=== PATIENT | female | born 1970 ===

== ENCOUNTER 2020-02-12 01:11 | Inpatient (IN) | payer MEDICARE, MEDICAID, SELFPAY ==
[2020-02-12] VITALS (7 sets, daily range): BP systolic 104–136; BP diastolic 58–103; PULSE 76–116; RESP 16–24; TEMP 36.4–37.3; O2SAT 94–99; BMI 35.1
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
--- NOTE | 2020-02-12 01:16 | XR_ITS ---
WS: [id number] XR chest 1V portable [id number] REASON FOR EXAM: cough FINDINGS: Small amount of left pleural effusion obliterating the costophrenic angle. The heart is not grossly enlarged. Coronary bypass changes are seen. The lung byrnes are well aerated. No pneumonia, pleural effusion other than described. There is no pu lmonary edema seen. The hilum and apices normal. A scoliotic curve convex to the right. XR/XR chest 1V portable [id number] IMPRESSION: Small amount of left pleural effusion Coronary bypass changes.
--- NOTE | 2020-02-12 01:16 | ECG_ITS ---
Measurements Intervals [place] Rate: 110 P: 55 [place]: 132 QRS: 17 QRSD: 84 T: 62 QT: 359 QTc: 487 SINUS TACHYCARDIA POSSIBLE LEFT ATRIAL ENLARGEMENT [-0.1mV P WAVE IN V1/V2] LOW QRS VOLTAGE IN PRECORDIAL LEADS [QRS DEFLECTION < 1.0 mV IN CHEST LEADS] NONSPECIFIC ST & T-WAVE ABNORMALITY ABNORMAL RHYTHM ECG Compared to ECG 06/30/2019 23:58:03 Low QRS voltage now present T-wave abnormality still present Electronically Signed On 02-12-2020 8:45:59 CDT by Brigette Condon [email or web address]
[2020-02-12] MEDS: ipratropium-albuterol 3 mL Neb INHALATION (01:28)
[2020-02-12 01:37] LABS: ABG PCO2 30.9 mmHg (35-45); ABG PH Result 7.51 (7.35-7.45); Base Excess ABG 2.4 mmol/L (-2.0-2.0); Blood Gas Allen Test Pos; Blood Gas Sample Site Radial, right; Blood Gas Sample Type Arterial; HCO3 ABG 24.8 mmol/L (22-26); Oxygen Device ROOM AIR; PO2 ABG 74.2 mmHg (80.0-100.0)
[2020-02-12 02:02] LABS: HCG, Serum Qual Negative (Negative)
[2020-02-12 02:09] LABS: Lactic Sepsis W/Reflex 2.9 mmol/L (0.5-2.2)
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
[2020-02-12 02:21] LABS: Alanine Aminotransferase 33 U/L (0-33); Albumin Level 4.2 g/dL (3.5-5.2); Alkaline Phosphatase 93 IU/L (35-105); Anion Gap 22.6 (5-19); Aspartate Amino Transferase 20 U/L (0-32); Blood Urea Nitrogen 13 mg/dL (6-20); Calcium 10.8 mg/dL (8.5-10.5); Carbon Dioxide 23 mmol/L (22-29); Chloride 99 mmol/L (98-107); Globulin 2.9 g/dL (1.3-4.6); Glomerular Filtration Rate 76.2 mL/min (90-130); Glucose 207 mg/dL (65-115); Magnesium 1.8 mg/dL (1.7-2.3); NT Pro B Type Natriuretic Pept 119 pg/mL (0-125); Osmolality Calculated 294 mOsm/kg (285-295); Potassium 3.6 mmol/L (3.5-5.1); Sodium 141 mmol/L (136-145); Total Bilirubin 0.3 mg/dL (0.15-1.2); Total Protein 7.1 g/dL (6.6-8.7)
[2020-02-12 02:23] LABS: Basophils # 0.1 10^3/uL (0.0-0.1); Basophils % 0.9 %; Eosinophils # 0.1 10^3/uL (0.0-0.8); Eosinophils % 1.3 %; Hematocrit 38.2 % (37.0-47.0); Hemoglobin 12.2 g/dL (11.5-15.3); Lymphocytes # 4.4 10^3/uL (0.8-4.8); Lymphocytes % 42.1 %; Mean Corpuscular HGB Conc 31.9 g/dL (30.0-36.0); Mean Corpuscular Hemoglobin 27.8 pg (28.0-34.0); Mean Platelet Volume 9.3 fL (7.4-10.4); Monocytes # 0.9 10^3/uL (0.2-0.9); Neutrophils # 4.8 10^3/uL (1.8-7.7); Neutrophils % 46.5 %; Nucleated Red Blood Cells % 0 %; Platelet Count 228 10^3/cmm (130-400); Red Blood Count 4.39 10^6/uL (4.1-5.3); Red Cell Distribution Width 14.6 % (12.1-15.1); White Blood Count 10.4 10^3/uL (4.0-10.0)
[2020-02-12 02:23] LABS: Alcohol Level < 10 mg/dL (0-10)
[2020-02-12 02:44] LABS: Troponin(5th) Baseline 7 ng/mL (0-10)
[2020-02-12] MEDS: haloperidol inj 5 mg/mL INJ 1 mL IM (02:49)
[2020-02-12 03:14] LABS: Influenza A by IFA Negative (Negative); Influenza B by IFA Negative (Negative)
[2020-02-12 03:28] LABS: Lithium 0.1 mmol/L (0.6-1.2)
[2020-02-12 03:34] LABS: Reflex Lactate Order REFLEX LACTIC ORDERD
[2020-02-12 03:37] LABS: Phenytoin Dilantin 1.2 ug/mL (10-20); Thyroid Stimulating Hormone 2.38 uIU/mL (0.27-4.20); Valproic Acid Level 2.8 mcg/mL (50-100)
[2020-02-12 03:46] LABS: Acetaminophen < 5.0 ug/mL (10-30); Salicylate < 0.3 mg/dL (3-10)
[2020-02-12 04:38] LABS: Lactic Acid level (Lactate) 1.1 mmol/L (0.5-2.2)
[2020-02-12 04:40] LABS: Troponin 5 2HR 7.39 ng/mL (0-10); Troponin 5 2HR Delta 0.39 ABS# (0-10)
[2020-02-12 05:28] LABS: Bilirubin Urine Neg (NEGATIVE); Blood Urine Neg (Negative); Glucose Urine UA Norm (Normal); Ketones Urine Negative (Negative); Leukocyte Esterase Urine Negative (Negative); Nitrate Urine Negative (Negative); Protein Urine Neg (Negative); Specific Gravity, Urine 1.025 (1.005-1.030); Urine Appearance Hazy (CLEAR); Urine Color Yellow (Yellow); Urobilinogen Urine Norm (Negative); pH Urine 5 (5-7)
[2020-02-12 05:33] LABS: Amphetamines Screen Urine Positive (Negative); Barbiturates Screen Urine Negative (Negative); Benzodiazepines Screen Urine Positive (Negative); Cocaine Screen Urine Negative (Negative); Opiate Screen Urine Negative (Negative); PCP Screen Urine Negative (Negative); THC Screen Urine Negative (Negative)
[2020-02-12 05:59] LABS: Add Urine Culture? No; Bacteria Urine TRACE; Mucus Urine 3+; RBC Urine 0-4 /hpf (0-2); Squamous Epithelial Cell Urine 0-4 (0-5)
--- NOTE | 2020-02-12 06:04 | ECG_ITS ---
Measurements Intervals [place] Rate: 85 P: 59 [place]: 139 QRS: 4 QRSD: 81 T: 121 QT: 404 QTc: 482 SINUS RHYTHM POSSIBLE LEFT ATRIAL ENLARGEMENT [-0.1mV P WAVE IN V1/V2] NONSPECIFIC T-WAVE ABNORMALITY Compared to ECG 06/30/2019 23:58:03 Sinus tachycardia no longer present T-wave abnormality still present Electronically Signed On 02-12-2020 8:49:37 CDT by Brigette Condon [email or web address]
[2020-02-12] MEDS: acetaminophen 325 mg Tablet 650 MG PO (11:01)
[2020-02-12] MEDS: TRAMadol 50 mg Tablet PO ×2 (13:34→17:18)
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
[2020-02-12] MEDS: quetiapine 100 mg Tablet PO (21:24)
[2020-02-13 06:00] VITALS: BP 97/62; PULSE 76; RESP 16; TEMP 37; O2SAT 99
[2020-02-13] MEDS: TRAMadol 50 mg Tablet PO (08:30)
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
[2020-02-13 09:35] VITALS: BP 97/62; PULSE 76; RESP 16; TEMP 37; O2SAT 99
== END 2020-02-13 13:30 | disposition home or self-care (01) | DRG 897 ==
LOC: ER 04:56 → NP 05:38
PROVIDERS: Admitting Provider Psychiatry & Neurology Psychiatry; Emergency Provider Emergency Medicine; Family Provider Family Medicine; Visit Provider Psychiatry & Neurology Psychiatry
DX: F12.129 Cannabis abuse with intoxication, unspecified (principal); F15.921 Other stimulant use, unspecified with intoxication delirium; F17.200 Nicotine dependence, unspecified, uncomplicated; F10.980 Alcohol use, unspecified with alcohol-induced anxiety disorder
CPT/HCPCS: 12345; 71045; 80053; 80156; 80164; 80178; 80185; 80306; 80307; 81001; 82803; 83605; 83735; 83880; 84443; 84484; 84703; 85025; 85610; 87804; 93005; 93010; 94640; 96372; 99283; J1630

== ENCOUNTER 2020-05-11 19:41 | Emergency (ER) | payer MEDICARE, MEDICAID, SELFPAY ==
[2020-05-11 20:00] VITALS: BP 167/91; PULSE 116; RESP 32; TEMP 36.9; O2SAT 94; BMI 43.6
--- NOTE | 2020-05-11 20:18 | XRR_ITS ---
PROCEDURE INFORMATION: Exam: XR Chest, 1 View Exam date and time: 05/11/2020 8:44 PM Age: 49 years old Clinical indication: Shortness of breath; Chest pain; Type not specified; Additional info: SOB TECHNIQUE: Imaging protocol: XR of the chest Views: 1 view. COMPARISON: No relevant prior studies available. FINDINGS: Lungs: Mild interstitial opacities throughout both lungs, likely pulmonary vascular congestion. Atypical/viral pneumonia is conceivable. No airspace consolidation identified. Pleural space: No visible pneumothorax or pleural effusion. Heart/Mediastinum: Cardiomediastinal silhouette contour is within normal limits. Bones/joints: Median sternotomy wires are present. XR/XR chest 1V portable [id number] IMPRESSION: 1. Mild interstitial opacities throughout both lungs, likely pulmonary vascular congestion. Atypical/viral pneumonia is conceivable.
--- NOTE | 2020-05-11 20:26 | ED_ITS ---
HPI - SOB/Dyspnea General: Chief Complaint: Shortness of Breath/Dyspnea Stated Complaint: possible covid Time Seen by Provider: 05/11/20 20:24 Source: patient Mode of arrival: ambulatory Limitations: no limitations History of Present Illness: HPI Narrative: 49-year-old female who states she has had chest pain along with shortness of breath over the last 2 days. She has had a mild cough and denies any fever. She states it is just very painful and is a sharp pain. She denies any worsening or improving factors. She states she has been around her daughter who is been around people with coronavirus but she has had no direct contact with someone that tested positive. MD elicited complaint: chest pain Associated symptoms: Reports chest pain; Deny abdominal pain, fever(s), nausea or vomiting Review of Systems Const: Denies: fever(s), chills, body aches or change in appetite Eyes: Denies: blurry vision or eye discomfort ENMT: Denies: throat pain or dental pain Card: Reports: chest pain Resp: Reports: dyspnea GI: Denies: abdominal pain, nausea, vomiting or diarrhea : Denies: dysuria Musc: Denies: neck pain or back pain Skin/Breast: Denies: rash Neuro: Denies: headache(s) Psych: Denies: depression Dexter/Lymph: Denies: easy bruising All/Imm: Denies: urticaria PFSH ED PFSH: Social History Smoking and tobacco status: current some day smoker Physical Exam Const: COMMON NORMALS: no acute distress, patient oriented x3 and healthy appearing HENMT: COMMON NORMALS: normocephalic and atraumatic HEAD & SCALP: normocephalic and atraumatic Eye: COMMON NORMALS: Equal, round and reactive pupils present and EOMs intact bilaterally PUPIL: Yes Equal, round and reactive pupils present Neck/C-Spine: COMMON NORMALS: full ROM and supple Chest: COMMONS NORMALS: normal inspection of the chest and normal palpation of entire chest wall Resp: COMMON NORMALS: normal respiratory effort, No retractions, No use of accessory muscles and clear to auscultation bilaterally AUSCULTATION: clear to auscultation bilaterally Cardio: COMMON NORMALS: regular rate, regular rhythm and No murmurs present (Cardio) RATE: regular rate RHYTHM: regular rhythm GI: COMMON NORMALS: Normal to inspection, nondistended, normoactive bowel sounds present, Soft to palpation, non-tender and no masses PALPATION: Yes Soft to palpation Extremity: COMMON NORMALS: normal to inspection and full ROM Neuro: COMMON NORMALS: patient oriented x3, moves all extremities and no focal motor deficits Psych: COMMON NORMALS: mental status grossly normal, Normal thought process present and cooperative THOUGHT PROCESS: Normal thought process present Skin: COMMON NORMALS: no rashes or lesions noted and no wounds GENERAL SKIN EXAM: no rashes or lesions noted Course Vital Signs: Vital signs: Vital Signs Temperature 98.4 F 05/11/20 20:00 Pulse Rate 122 H 05/11/20 22:01 Respiratory Rate 17 05/11/20 22:37 Blood Pressure 140/94 05/11/20 20:27 Pulse Oximetry 94 05/11/20 22:37 MDM - SOB/Dyspnea MDM Narrative: Medical decision making narrative: Lanie presents here with chest pain is been going on straight for 2 days. Her pain is atypical in nature and she is well-appearing here. Her pain is much improved after Ativan and she did seem quite anxious as well. She was tachypneic and having some dyspnea. She is very concerned about coronavirus as she has had indirect contact as her daughter is been in contact with positives. Her x-ray did show a possible viral appearance I informed her that she needs to self isolate and quarantine until we get the results of her coronavirus back. She is to return if she has any worsening shortness of breath or pain. She understands and agrees to this plan. Patient's d-dimer is negative and she has no signs of pulmonary embolism. Troponins negative as well. Lab Data: Labs: Lab Results 05/11/20 05/11/20 05/11/20 Range/Units 21:04 21:04 21:04 WBC 6.6 (4.0-10.0) 10^3/ uL RBC 5.06 (4.1-5.3) 10^6/u L Hgb 14.0 (11.5-15.3) g/dL Hct 43.7 (37.0-47.0) % MCV 86.4 (81-99) fL MCH 27.7 L (28.0-34.0) pg MCHC 32.0 (30.0-36.0) g/dL RDW 13.2 (12.1-15.1) % Plt Count 221 (130-400) 10^3/c mm MPV 9.9 (7.4-10.4) fL Neut % (Auto) 84.2 % Lymph % (Auto) 13.3 % [place] % (Auto) 1.7 % Eos % (Auto) 0.2 % Baso % (Auto) 0.3 % Neut # (Auto) 5.6 (1.8-7.7) 10^3/u L Lymph # (Auto) 0.9 (0.8-4.8) 10^3/u L [place] # (Auto) 0.1 L (0.2-0.9) 10^3/u L Eos # (Auto) 0.0 (0.0-0.8) 10^3/u L Baso # (Auto) 0.0 (0.0-0.1) 10^3/u L Nucleated RBC % (a uto) 0 % Nucleated RBCs # 0.0 /100WBC D-Dimer (0-0.59) ug/mIFE U Sodium 130 L (136-145) mmol/L Potassium 5.1 (3.5-5.1) mmol/L Chloride 92 L (98-107) mmol/L Carbon Dioxide 21 L (22-29) mmol/L Anion Gap 22.1 H (5-19) BUN 14 (6-20) mg/dL Creatinine 0.9 (0.5-0.9) mg/dL GFR Calculation 66.5 L (90-130) mL/min Calculated Osmolal ity 304 H (285-295) mOsm/k g Calcium 10.2 (8.5-10.5) mg/dL Total Bilirubin 0.2 (0.15-1.2) mg/dL AST 60 H (0-32) U/L ALT 99 H (0-33) U/L Alkaline Phosphata se 125 H (35-105) IU/L Troponin T Baselin e 6 (0-10) ng/L NT-Pro-B Natriuret Pep 307 H (0-125) pg/mL Total Protein 7.0 (6.6-8.7) g/dL Albumin 4.4 (3.5-5.2) g/dL Globulin 2.6 (1.3-4.6) g/dL Ethyl Alcohol < 10 (0-10) mg/dL 05/11/20 Range/Units 21:04 WBC (4.0-10.0) 10^3/ uL RBC (4.1-5.3) 10^6/u L Hgb (11.5-15.3) g/dL Hct (37.0-47.0) % MCV (81-99) fL MCH (28.0-34.0) pg MCHC (30.0-36.0) g/dL RDW (12.1-15.1) % Plt Count (130-400) 10^3/c mm MPV (7.4-10.4) fL Neut % (Auto) % Lymph % (Auto) % [place] % (Auto) % Eos % (Auto) % Baso % (Auto) % Neut # (Auto) (1.8-7.7) 10^3/u L Lymph # (Auto) (0.8-4.8) 10^3/u L [place] # (Auto) (0.2-0.9) 10^3/u L Eos # (Auto) (0.0-0.8) 10^3/u L Baso # (Auto) (0.0-0.1) 10^3/u L Nucleated RBC % (a uto) % Nucleated RBCs # /100WBC D-Dimer <= 0.27 (0-0.59) ug/mIFE U Sodium (136-145) mmol/L Potassium (3.5-5.1) mmol/L Chloride (98-107) mmol/L Carbon Dioxide (22-29) mmol/L Anion Gap (5-19) BUN (6-20) mg/dL Creatinine (0.5-0.9) mg/dL GFR Calculation (90-130) mL/min Calculated Osmolal ity (285-295) mOsm/k g Calcium (8.5-10.5) mg/dL Total Bilirubin (0.15-1.2) mg/dL AST (0-32) U/L ALT (0-33) U/L Alkaline Phosphata se (35-105) IU/L Troponin T Baselin e (0-10) ng/L NT-Pro-B Natriuret Pep (0-125) pg/mL Total Protein (6.6-8.7) g/dL Albumin (3.5-5.2) g/dL Globulin (1.3-4.6) g/dL Ethyl Alcohol (0-10) mg/dL EKG Data^: EKG 1: Attestation: I personally reviewed and interpreted this EKG as follows: EKG Interpretation Date: 05/11/20 EKG interpretation time: 20:06 Interpretation: sinus tach hr [address] or t wave abnormalities qrs 83 qtc 410 Discharge Plan Discharge Patient Disposition: Home, Self-Care Clinical Impression: Chest pain Qualifiers: Chest pain type: unspecified Qualified Code(s): R07.9 - Chest pain, unspecified URI (upper respiratory infection) Qualifiers: URI type: unspecified URI Qualified Code(s): J06.9 - Acute upper respiratory infection, unspecified Condition: Stable Prescriptions: [place] 5-325 mg tablet 1 tab PO Q6H PRN (Reason: pain) Qty: 14 RF: 0 Keflex 500 mg capsule 500 mg PO Q6H 7 Days Qty: 28 RF: 0 ondansetron 4 mg tablet,disintegrating 4 mg PO Q6H PRN (Reason: nausea and vomiting) Qty: 14 RF: 0 Discharge Orders: Discharge Order (Routine); Ordered 05/11/20 Ordered By: Francia Mendez Referrals: Alexis Huertas [Primary Care Provider] - 1-3 days Discharge Diet: Advance as tolerated Discharge Activity: Resume usual activity Patient Instructions: Chest Pain (ED), Upper Respiratory Infection (ED) Coding Level of Care Code ED Digital Art Director for Chg Fwd Exam Comprehensive
[2020-05-11 20:27] VITALS: BP 140/94; PULSE 117; RESP 18; O2SAT 93
[2020-05-11 21:57] LABS: Basophils % 0.3 %; Eosinophils % 0.2 %; Hematocrit 43.7 % (37.0-47.0); Lymphocytes # 0.9 10^3/uL (0.8-4.8); Lymphocytes % 13.3 %; Mean Corpuscular Hemoglobin 27.7 pg (28.0-34.0); Mean Corpuscular Volume 86.4 fL (81-99); Mean Platelet Volume 9.9 fL (7.4-10.4); Monocytes # 0.1 10^3/uL (0.2-0.9); Monocytes % 1.7 %; Neutrophils # 5.6 10^3/uL (1.8-7.7); Neutrophils % 84.2 %; Nucleated Red Blood Cells % 0 %; Platelet Count 221 10^3/cmm (130-400); Red Blood Count 5.06 10^6/uL (4.1-5.3); Red Cell Distribution Width 13.2 % (12.1-15.1); White Blood Count 6.6 10^3/uL (4.0-10.0)
[2020-05-11 22:01] VITALS: PULSE 122; RESP 18
[2020-05-11 22:02] VITALS: RESP 18; O2SAT 93
[2020-05-11] MEDS: LORazepam 2 mg/mL INJ 1 mL 1 MG IVP (22:02)
[2020-05-11] MEDS: morphine 4 mg/mL SDV 1 mL IVP ×2 (22:02→22:37)
[2020-05-11 22:11] LABS: D Dimer <= 0.27 ug/mIFEU (0-0.59)
[2020-05-11 22:21] LABS: Troponin(5th) Baseline 6 ng/L (0-10)
[2020-05-11 22:30] LABS: Alanine Aminotransferase 99 U/L (0-33); Albumin Level 4.4 g/dL (3.5-5.2); Alkaline Phosphatase 125 IU/L (35-105); Anion Gap 22.1 (5-19); Aspartate Amino Transferase 60 U/L (0-32); Blood Urea Nitrogen 14 mg/dL (6-20); Calcium 10.2 mg/dL (8.5-10.5); Carbon Dioxide 21 mmol/L (22-29); Chloride 92 mmol/L (98-107); Globulin 2.6 g/dL (1.3-4.6); Glomerular Filtration Rate 66.5 mL/min (90-130); NT Pro B Type Natriuretic Pept 307 pg/mL (0-125); Potassium 5.1 mmol/L (3.5-5.1); Sodium 130 mmol/L (136-145); Total Bilirubin 0.2 mg/dL (0.15-1.2)
[2020-05-11 22:34] LABS: Alcohol Level < 10 mg/dL (0-10)
[2020-05-11 22:37] VITALS: RESP 17; O2SAT 94
[2020-05-11 22:39] LABS: Osmolality Calculated 304 mOsm/kg (285-295)
[2020-05-11 22:55] LABS: Glucose 779 mg/dL (65-115)
--- NOTE | 2020-05-11 23:26 | ED_ITS ---
HPI - SOB/Dyspnea General: Chief Complaint: Shortness of Breath/Dyspnea Stated Complaint: possible covid Time Seen by Provider: 05/11/20 20:24 Source: patient Mode of arrival: ambulatory Limitations: no limitations History of Present Illness: HPI Narrative: Patient was initially seen and evaluated by Dr. Mendez. Please see his note for his history, physical exam and medical decision-making notes. The patient had been discharged apparently but her blood sugar came back significantly elevated and nursing brought it to my attention. I then went to discuss this with the patient. [facility] ED PFSH: Social History Smoking and tobacco status: current some day smoker Physical Exam Const: COMMON NORMALS: no acute distress, patient oriented x3 and no limitations GENERAL APPEARANCE: cooperative Neuro: PAYTON COMA SCALE: document GCS findings [place] coma scale eye opening: Spontaneous [place] coma scale verbal response: Orientated [place] coma scale motor response: Obey commands [place] coma scale total score: 15 COMMON NORMALS: patient oriented x3, moves all extremities and no focal motor deficits Course Vital Signs: Vital signs: Vital Signs Temperature 98.4 F 05/11/20 20:00 Pulse Rate 122 H 05/11/20 22:01 Respiratory Rate 17 05/11/20 22:37 Blood Pressure 140/94 05/11/20 20:27 Pulse Oximetry 94 05/11/20 22:37 MDM - SOB/Dyspnea MDM Narrative: Medical decision making narrative: I informed the patient that her blood sugar was extremely high and we needed to do further testing such as an ABG, more IV lab work and give her IV fluids and insulin to help bring down her blood sugar and assess for the need for possible admission for diabetic ketoacidosis. The patient became very upset and stated she did not want to stay, she did not want to be tested any further and wanted no further blood test or IV sticks. I informed her at length of the possibilities of even life- threatening illnesses that could be going on secondary to her elevated blood sugar but she states that she just wants to go home and wants to be left alone. I informed her that if she left she will be leaving AGAINST MEDICAL ADVICE and that this posed a danger to her life by doing so. After she discussed it for a very brief time with a family relative over the phone and with her she informed me she refused to stay and she understood that she would be signing out AGAINST MEDICAL ADVICE but she did understand she was welcome to return at any time. The patient previously had discharge instructions given by Dr. Mendez but secondary to lab not notifying him of the elevated blood sugar he had discharge instructions ready. I believe Dr. Mendez would have waited and perform more testing but do not believe he was aware of the elevated blood sugar. As the patient did understand the risks of leaving AGAINST MEDICAL ADVICE I did allow her to leave and she did sign an AMA statement but she refused to allow me to fully formally examine her and have adequate time to review all of her lab tests that had already been resulted before going. I did talk to her long enough to ascertain that she was more than able and had the capacity to make this decision. She verbalized her understanding of the risks of leaving including ultimately or severe permanent disability. Ultimately I could not convince her to stay and she would not remain long enough for me to review all of her lab work or to give her further discharge instructions. I did allow nursing to send her home with instructions previously given by Dr. Mendez. The patient did receive verbal discharge instructions from me about what symptoms for which to return and she will acknowledge these as did her . 2354 -the patient has gone home but I have now reviewed her labs. Her blood sugar was markedly elevated at 779. She did have an anion gap of 17 but she would not allow for a serum ketone or lactate to be drawn. The patient did not appear to have any type of hyperosmolar hyperglycemic nonketotic state. Her liver enzymes were moderately elevated but consistent with previous. Ultimately I had informed the patient about the risks of DKA among other possibilities of ongoing disease processes which at this point cannot be proven or disproven. She did understand she was welcome to return if she changed her mind and she was aware of the risks of by leaving but her who seem to be very caring for her assured me he would bring her back if she got any worse. Again the patient would not wait for me to do a complete examination although I could assess that her mentation was more than sound and she certainly had the capacity to make her own decisions. Lab Data: Labs: Lab Results 05/11/20 05/11/20 05/11/20 Range/Units 21:04 21:04 21:04 WBC 6.6 (4.0-10.0) 10^3/ uL RBC 5.06 (4.1-5.3) 10^6/u L Hgb 14.0 (11.5-15.3) g/dL Hct 43.7 (37.0-47.0) % MCV 86.4 (81-99) fL MCH 27.7 L (28.0-34.0) pg MCHC 32.0 (30.0-36.0) g/dL RDW 13.2 (12.1-15.1) % Plt Count 221 (130-400) 10^3/c mm MPV 9.9 (7.4-10.4) fL Neut % (Auto) 84.2 % Lymph % (Auto) 13.3 % [place] % (Auto) 1.7 % Eos % (Auto) 0.2 % Baso % (Auto) 0.3 % Neut # (Auto) 5.6 (1.8-7.7) 10^3/u L Lymph # (Auto) 0.9 (0.8-4.8) 10^3/u L [place] # (Auto) 0.1 L (0.2-0.9) 10^3/u L Eos # (Auto) 0.0 (0.0-0.8) 10^3/u L Baso # (Auto) 0.0 (0.0-0.1) 10^3/u L Nucleated RBC % (a uto) 0 % Nucleated RBCs # 0.0 /100WBC D-Dimer (0-0.59) ug/mIFE U Sodium 130 L (136-145) mmol/L Potassium 5.1 (3.5-5.1) mmol/L Chloride 92 L (98-107) mmol/L Carbon Dioxide 21 L (22-29) mmol/L Anion Gap 22.1 H (5-19) BUN 14 (6-20) mg/dL Creatinine 0.9 (0.5-0.9) mg/dL GFR Calculation 66.5 L (90-130) mL/min Glucose 779 H* (65-115) mg/dL Calculated Osmolal ity 304 H (285-295) mOsm/k g Calcium 10.2 (8.5-10.5) mg/dL Total Bilirubin 0.2 (0.15-1.2) mg/dL AST 60 H (0-32) U/L ALT 99 H (0-33) U/L Alkaline Phosphata se 125 H (35-105) IU/L Troponin T Baselin e 6 (0-10) ng/L NT-Pro-B Natriuret Pep 307 H (0-125) pg/mL Total Protein 7.0 (6.6-8.7) g/dL Albumin 4.4 (3.5-5.2) g/dL Globulin 2.6 (1.3-4.6) g/dL Ethyl Alcohol < 10 (0-10) mg/dL 05/11/20 Range/Units 21:04 WBC (4.0-10.0) 10^3/ uL RBC (4.1-5.3) 10^6/u L Hgb (11.5-15.3) g/dL Hct (37.0-47.0) % MCV (81-99) fL MCH (28.0-34.0) pg MCHC (30.0-36.0) g/dL RDW (12.1-15.1) % Plt Count (130-400) 10^3/c mm MPV (7.4-10.4) fL Neut % (Auto) % Lymph % (Auto) % [place] % (Auto) % Eos % (Auto) % Baso % (Auto) % Neut # (Auto) (1.8-7.7) 10^3/u L Lymph # (Auto) (0.8-4.8) 10^3/u L [place] # (Auto) (0.2-0.9) 10^3/u L Eos # (Auto) (0.0-0.8) 10^3/u L Baso # (Auto) (0.0-0.1) 10^3/u L Nucleated RBC % (a uto) % Nucleated RBCs # /100WBC D-Dimer <= 0.27 (0-0.59) ug/mIFE U Sodium (136-145) mmol/L Potassium (3.5-5.1) mmol/L Chloride (98-107) mmol/L Carbon Dioxide (22-29) mmol/L Anion Gap (5-19) BUN (6-20) mg/dL Creatinine (0.5-0.9) mg/dL GFR Calculation (90-130) mL/min Glucose (65-115) mg/dL Calculated Osmolal ity (285-295) mOsm/k g Calcium (8.5-10.5) mg/dL Total Bilirubin (0.15-1.2) mg/dL AST (0-32) U/L ALT (0-33) U/L Alkaline Phosphata se (35-105) IU/L Troponin T Baselin e (0-10) ng/L NT-Pro-B Natriuret Pep (0-125) pg/mL Total Protein (6.6-8.7) g/dL Albumin (3.5-5.2) g/dL Globulin (1.3-4.6) g/dL Ethyl Alcohol (0-10) mg/dL Discharge Plan Discharge Patient Disposition: Home, Self-Care Clinical Impression: Chest pain Qualifiers: Chest pain type: unspecified Qualified Code(s): R07.9 - Chest pain, unspecified URI (upper respiratory infection) Qualifiers: URI type: unspecified URI Qualified Code(s): J06.9 - Acute upper respiratory infection, unspecified Condition: Stable Prescriptions: [place] 5-325 mg tablet 1 tab PO Q6H PRN (Reason: pain) Qty: 14 RF: 0 Keflex 500 mg capsule 500 mg PO Q6H 7 Days Qty: 28 RF: 0 ondansetron 4 mg tablet,disintegrating 4 mg PO Q6H PRN (Reason: nausea and vomiting) Qty: 14 RF: 0 Discharge Orders: Discharge Order (Routine); Ordered 05/11/20 Ordered By: Francia Mendez Referrals: Alexis Huertas [Primary Care Provider] - 1-3 days Discharge Diet: Advance as tolerated Discharge Activity: Resume usual activity Patient Instructions: Chest Pain (ED), Upper Respiratory Infection (ED) Discharge Date/Time: 05/12/20 00:07 Coding Level of Care Code ED Assistant To The Vice President for Chg Fwd Exam Expanded Problem Focused
--- NOTE | 2020-05-12 00:06 | PC.NURSE ---
Pt informed Dr Flores wished to examine her further due to critical lab finding blood glucose 779. Pt stated she wishes to go home and try to get over this virus . Pt informed health could quickly deteriorate causing permanent disability or . Pt acknowledged risks and benefits, A&O x3, states she will come back if I get worse . AMA form signed and witnessed by staff. notified of pt's decision
[2020-05-17 06:52] LABS: Quest SARS-CoV-2 RNA NOT DETECTED (NOT DETECTED)
== END 2020-05-12 00:07 | disposition home or self-care (01) ==
PROVIDERS: Emergency Medicine; Emergency Provider Emergency Medicine; PCP Family Medicine
DX: R07.9 Chest pain, unspecified (principal); J06.9 Acute upper respiratory infection, unspecified; F17.210 Nicotine dependence, cigarettes, uncomplicated
CPT/HCPCS: 12345; 71045; 80053; 80307; 83880; 84484; 85025; 85378; 87635; 96374; 96375; 96376; 99283; 99284; J2060; J2270

== ENCOUNTER 2020-06-02 16:14 | Emergency (ER) | payer MEDICARE, MEDICAID, SELFPAY ==
[2020-06-02 16:32] VITALS: BP 145/75; PULSE 108; RESP 14; TEMP 36; O2SAT 97; BMI 43.6
== END 2020-06-02 16:39 ==
LOC: ER 16:35
PROVIDERS: Emergency Provider Family Medicine; PCP Family Medicine
DX: Z53.21 Procedure and treatment not carried out due to patient leaving prior to being seen by health care provider (principal)
CPT/HCPCS: 99281

== ENCOUNTER 2020-09-10 22:28 | Emergency (ER) | payer MEDICARE, MEDICAID, SELFPAY ==
[2020-09-10 22:37] VITALS: BP 146/94; PULSE 109; RESP 20; TEMP 36.8; O2SAT 95; BMI 41.1
[2020-09-10 23:20] LABS: Glucose Point of Care 343 mg/dL (70-110)
[2020-09-10 23:36] LABS: ABG PCO2 40.1 mmHg (35-45); ABG PH Result 7.42 (7.35-7.45); Arterial Blood Gas Hematocrit 43.6 % (37-47); Base Excess ABG 1.6 mmol/L (-2.0-2.0); Blood Gas Allen Test Pos; Blood Gas Sample Site Radial, right; Blood Gas Sample Type Arterial; HCO3 ABG 26.2 mmol/L (22-26)
[2020-09-11 00:21] LABS: Basophils # 0.1 10^3/uL (0.0-0.1); Basophils % 0.6 %; Eosinophils # 0.3 10^3/uL (0.0-0.8); Eosinophils % 3.4 %; Hematocrit 42.4 % (37.0-47.0); Hemoglobin 13.6 g/dL (11.5-15.3); Lymphocytes # 3.2 10^3/uL (0.8-4.8); Lymphocytes % 40.1 %; Mean Corpuscular HGB Conc 32.1 g/dL (30.0-36.0); Mean Corpuscular Hemoglobin 27.4 pg (28.0-34.0); Mean Corpuscular Volume 85.3 fL (81-99); Mean Platelet Volume 9.3 fL (7.4-10.4); Monocytes # 0.6 10^3/uL (0.2-0.9); Monocytes % 7.8 %; Neutrophils # 3.83 10^3/uL (1.8-7.7); Nucleated Red Blood Cells % 0 %; Platelet Count 222 10^3/cmm (130-400); Red Blood Count 4.97 10^6/uL (4.1-5.3); Red Cell Distribution Width 14.6 % (12.1-15.1)
[2020-09-11 00:32] LABS: Ketone (Acetest) Serum Negative (Negative)
[2020-09-11 00:38] LABS: Alanine Aminotransferase 32 U/L (0-33); Albumin Level 3.9 g/dL (3.5-5.2); Alkaline Phosphatase 114 IU/L (35-105); Anion Gap 16.8 (5-19); Aspartate Amino Transferase 23 U/L (0-32); Blood Urea Nitrogen 14 mg/dL (6-20); Calcium 9.6 mg/dL (8.5-10.5); Carbon Dioxide 24 mmol/L (22-29); Chloride 97 mmol/L (98-107); Creatinine Clr Calc Pharmacy 136.7319; Glomerular Filtration Rate 106.3 mL/min (90-130); Glucose 323 mg/dL (65-115); Osmolality Calculated 291 mOsm/kg (285-295); Potassium 3.8 mmol/L (3.5-5.1); Sodium 134 mmol/L (136-145); Total Bilirubin 0.2 mg/dL (0.15-1.2); Total Protein 6.9 g/dL (6.6-8.7)
[2020-09-11] MEDS: sodium chloride 0.9% 1,000 ML 999 ML IV (01:19)
[2020-09-11] MEDS: ondansetron 2 mg/ML SDV 2 mL 4 MG IVP (01:19)
[2020-09-11] MEDS: insulin regular-human 100 units/1 mL 6 UNIT IVP (01:21)
[2020-09-11 01:23] LABS: Add Urine Microscopic? NO
[2020-09-11 01:24] VITALS: RESP 20
[2020-09-11] MEDS: morphine 4 mg/mL SDV 1 mL IVP (01:24)
[2020-09-11 01:25] LABS: Bilirubin Urine Neg (Negative); Blood Urine Neg (Negative); Glucose Urine UA 4+ (Normal); Ketones Urine Negative (Negative); Leukocyte Esterase Urine Negative (Negative); Nitrate Urine Negative (Negative); Protein Urine Neg (Negative); Specific Gravity, Urine 1.015 (1.005-1.030); Urine Appearance Clear (CLEAR); Urine Color Yellow (Yellow); Urobilinogen Urine Norm (Negative); pH Urine 5 (5-7)
[2020-09-11 02:21] LABS: Glucose Point of Care 120 mg/dL (70-110)
--- NOTE | 2020-09-11 02:49 | ED_ITS ---
HPI - General Adult General: Chief complaint: General Medical Stated complaint: HIGH BLOOD SUGAR Time Seen by Provider: 09/10/20 23:31 History of Present Illness: HPI narrative: 49-year-old female presenting with symptoms of generalized malaise, urinary frequency, and high blood sugar. She notes that her sugars been quite high despite taking her metformin appropriately. She did not know why. Onset (ago): day(s) Location: head Radiation: non-radiation Severity: moderate Relieving factors: none Associated symptoms: Reports cough, headache(s) and nausea; Deny chest pain, dyspnea, rash, palpitations, short of breath or vomiting Review of Systems Const: Denies: fever(s) Eyes: Denies: change in vision or blurry vision ENMT: Denies: odynophagia, post nasal drip or sinus pain Card: Denies: chest pain, palpitations, irregular heart rhythm or edema Resp: Denies: dyspnea or wheezing GI: Reports: nausea; Denies: vomiting : Denies: dysuria or hematuria Musc: Denies: neck pain or joint warmth Skin/Breast: Denies: rash or erythema Neuro: Reports: headache(s); Denies: dizziness or vertigo Psych: Denies: anxiety PFSH ED PFSH: Medical History (Updated 09/11/20 @ 02:56 by Sonu Michele DO) Depression with anxiety Diabetes Morbid obesity Yeast infection Surgical History History of bilateral tubal ligation History of bladder repair surgery History of cholecystectomy History of coronary artery bypass graft x 2 History of hysterectomy with bilateral oophorectomy Family History Denies family history of Anesthesia complication Bleeding disorder Social History Smoking and tobacco status: current every day smoker cigarettes Packs smoked per day: 0.5 Second hand smoke exposure: Yes Alcohol intake: current Alcohol intake frequency: holidays/special occasions only Alcohol type: beer, wine and hard liquor Adopted: No Caregiver/support person: Yes Lives independently: Yes Household members: spouse Housing: House Marital status: service: No Current occupational status: disabled Current occupational exposures/hazards: No Pets and animals: No History of recent travel: No Sexually active: Yes Current gender identity: Female [employer] Special mirella needs: No Agree to transfusion: Yes Financial difficulty paying for basics: Decline to Answer Physical Exam Const: GENERAL APPEARANCE: well developed ORIENTATION/CONSCIOUSNESS: Yes oriented to person, Yes oriented to place and Yes oriented to time HENMT: COMMON NORMALS: normocephalic, external ears normal and Normal external nose present HEAD & SCALP: normocephalic FACE & SINUS: normal facial exam NOSE: Normal external nose present and No nasal discharge present EXTERNAL EAR: Yes external ears normal Eye: COMMON NORMALS: Equal, round and reactive pupils present, EOMs intact bilaterally and conjunctivae normal EYELID: eyelids normal CONJUNCTIVA: Yes conjunctivae normal PUPIL: Yes Equal, round and reactive pupils present Neck/C-Spine: GENERAL: No tracheal deviation Chest: COMMONS NORMALS: normal inspection of the chest CHEST: No tenderness Resp: COMMON NORMALS: clear to auscultation bilaterally EFFORT & INSPECTION: No tachypneic, No respiratory distress, No retractions, No uses accessory muscles and No tracheal deviation AUSCULTATION: clear to auscultation bilaterally, no rhonchi, no wheezes and lung sounds not diminished Cardio: COMMON NORMALS: regular rate and regular rhythm RATE: regular rate RHYTHM: regular rhythm HEART SOUNDS: no murmurs PERIPHERAL PULSES: radial pulses present GI: INSPECTION: No abdominal distension AUSCULTATION: No Hyperactive bowel sounds present and No Hypoactive bowel sounds present PALPATION: No Guarding due to palpation present (GI) and No Rigid due to palpation PERCUSSION: no dullness to percussion and no tympanic to percussion Neuro: SENSORIUM/ORIENTATION: Yes oriented to person, Yes oriented to place and Yes oriented to time Psych: COMMON NORMALS: mental status grossly normal Skin: COMMON NORMALS: no rashes or lesions noted GENERAL SKIN EXAM: no rashes or lesions noted Course Vital Signs: Vital signs: Vital Signs Temperature 98.3 F 09/10/20 22:37 Pulse Rate 77 09/11/20 03:09 Respiratory Rate 16 09/11/20 03:09 Blood Pressure 138/88 09/11/20 03:09 Pulse Oximetry 100 09/11/20 03:09 MDM - General Adult MDM Narrative: Medical decision making narrative: Vitals are good. Labs are stable. The patient's blood sugars in the mid 300s. She is given IV insulin and fluid, with reduction to 120. Her urinalysis is negative. She will be discharged home. She will be given a prescription for glipizide which she can use if her sugar remains high. Lab Data: Labs: Lab Results 09/10/20 09/10/20 09/11/20 Range/Units 22:48 23:30 00:08 WBC 8.0 (4.0-10.0) 10^3/ uL RBC 4.97 (4.1-5.3) 10^6/u L Hgb 13.6 (11.5-15.3) g/dL Hct 42.4 (37.0-47.0) % MCV 85.3 (81-99) fL MCH 27.4 L (28.0-34.0) pg MCHC 32.1 (30.0-36.0) g/dL RDW 14.6 (12.1-15.1) % Plt Count 222 (130-400) 10^3/c mm MPV 9.3 (7.4-10.4) fL Neut % (Auto) 48.0 % Lymph % (Auto) 40.1 % [place] % (Auto) 7.8 % Eos % (Auto) 3.4 % Baso % (Auto) 0.6 % Neut # (Auto) 3.83 (1.8-7.7) 10^3/u L Lymph # (Auto) 3.2 (0.8-4.8) 10^3/u L [place] # (Auto) 0.6 (0.2-0.9) 10^3/u L Eos # (Auto) 0.3 (0.0-0.8) 10^3/u L Baso # (Auto) 0.1 (0.0-0.1) 10^3/u L Nucleated RBC % (a uto) 0 % Nucleated RBCs # 0.0 /100WBC Specimen Type Arterial Sample Site Radial, right ABG pH 7.42 (7.35-7.45) ABG pCO2 40.1 (35-45) mmHg ABG pO2 82.0 (80.0-100.0) mmH g ABG HCO3 26.2 H (22-26) mmol/L ABG Base Excess 1.6 (-2.0-2.0) mmol/ L Ramírez Test Pos Hematocrit 43.6 (37-47) % Field Aide ID ellpe Sodium (136-145) mmol/L Potassium (3.5-5.1) mmol/L Chloride (98-107) mmol/L Carbon Dioxide (22-29) mmol/L Anion Gap (5-19) BUN (6-20) mg/dL Creatinine (0.5-0.9) mg/dL GFR Calculation (90-130) mL/min Glucose (65-115) mg/dL POC Glucose 343 (70-110) mg/dL Calculated Osmolal ity (285-295) mOsm/k g Calcium (8.5-10.5) mg/dL Total Bilirubin (0.15-1.2) mg/dL AST (0-32) U/L ALT (0-33) U/L Alkaline Phosphata se (35-105) IU/L Total Protein (6.6-8.7) g/dL Albumin (3.5-5.2) g/dL Globulin (1.3-4.6) g/dL Urine Color (Yellow) Urine Appearance (CLEAR) Urine pH (5-7) Ur Specific Gravit y (1.005-1.030) Urine Protein (Negative) Urine Glucose (UA) (Normal) Urine Ketones (Negative) Urine Blood (Negative) Urine Nitrate (Negative) Urine Bilirubin (Negative) Urine Urobilinogen (Negative) mg/dL Ur Leukocyte Angelina ase (Negative) Serum Ketones (Negative) 09/11/20 09/11/20 09/11/20 Range/Units 00:08 01:15 02:17 WBC (4.0-10.0) 10^3/ uL RBC (4.1-5.3) 10^6/u L Hgb (11.5-15.3) g/dL Hct (37.0-47.0) % MCV (81-99) fL MCH (28.0-34.0) pg MCHC (30.0-36.0) g/dL RDW (12.1-15.1) % Plt Count (130-400) 10^3/c mm MPV (7.4-10.4) fL Neut % (Auto) % Lymph % (Auto) % [place] % (Auto) % Eos % (Auto) % Baso % (Auto) % Neut # (Auto) (1.8-7.7) 10^3/u L Lymph # (Auto) (0.8-4.8) 10^3/u L [place] # (Auto) (0.2-0.9) 10^3/u L Eos # (Auto) (0.0-0.8) 10^3/u L Baso # (Auto) (0.0-0.1) 10^3/u L Nucleated RBC % (a uto) % Nucleated RBCs # /100WBC Specimen Type Sample Site ABG pH (7.35-7.45) ABG pCO2 (35-45) mmHg ABG pO2 (80.0-100.0) mmH g ABG HCO3 (22-26) mmol/L ABG Base Excess (-2.0-2.0) mmol/ L Ramírez Test Hematocrit (37-47) % Field Aide ID Sodium 134 L (136-145) mmol/L Potassium 3.8 (3.5-5.1) mmol/L Chloride 97 L (98-107) mmol/L Carbon Dioxide 24 (22-29) mmol/L Anion Gap 16.8 (5-19) BUN 14 (6-20) mg/dL Creatinine 0.6 (0.5-0.9) mg/dL GFR Calculation 106.3 (90-130) mL/min Glucose 323 H (65-115) mg/dL POC Glucose 120 (70-110) mg/dL Calculated Osmolal ity 291 (285-295) mOsm/k g Calcium 9.6 (8.5-10.5) mg/dL Total Bilirubin 0.2 (0.15-1.2) mg/dL AST 23 (0-32) U/L ALT 32 (0-33) U/L Alkaline Phosphata se 114 H (35-105) IU/L Total Protein 6.9 (6.6-8.7) g/dL Albumin 3.9 (3.5-5.2) g/dL Globulin 3.0 (1.3-4.6) g/dL Urine Color Yellow (Yellow) Urine Appearance Clear (CLEAR) Urine pH 5 (5-7) Ur Specific Gravit y 1.015 (1.005-1.030) Urine Protein Neg (Negative) Urine Glucose (UA) 4+ H (Normal) Urine Ketones Negative (Negative) Urine Blood Neg (Negative) Urine Nitrate Negative (Negative) Urine Bilirubin Neg (Negative) Urine Urobilinogen Norm (Negative) mg/dL Ur Leukocyte Angelina ase Negative (Negative) Serum Ketones Negative (Negative) Discharge Plan Discharge Patient Disposition: Home Clinical Impression: Acute hyperglycemia Condition: Stable Prescriptions: New glipizide 5 mg tablet 5 mg PO BID Qty: 30 RF: 0 No Action quetiapine 100 mg tablet PO RF: 0 tramadol 50 mg tablet 50 mg PO Q6H PRNRF: 0 cephalexin 500 mg capsule PO RF: 0 sertraline 50 mg tablet PO RF: 0 metformin 500 mg tablet PO RF: 0 [place] 5-325 mg tablet 1 tab PO Q6H PRN (Reason: pain) Qty: 14 RF: 0 ondansetron 4 mg tablet,disintegrating 4 mg PO Q6H PRN (Reason: nausea and vomiting) Qty: 14 RF: 0 Discharge Orders: Discharge Order (Routine); Ordered 09/11/20 Ordered By: Sonu Michele Referrals: Javi Holley MD [Primary Care Provider] - Discharge Diet: Advance as tolerated and Diabetic Discharge Activity: Increase activity as tolerated Patient Instructions: Diabetic Hyperglycemia (ED) Activity Restrictions/Additional Instructions: Check your blood sugar often. You may use the medication prescribed if your blood sugars are remaining high, particularly over 200 fasting in the morning. Return for development of fever, worsening cough or shortness of breath, vomiting liquids or medications, belly pain, other concerning symptoms. Discharge Date/Time: 09/11/20 03:11 Coding Level of Care Code ED Resource Protection Specialist for Chg Fwd Exam Comprehensive
[2020-09-11 03:09] VITALS: BP 138/88; PULSE 77; RESP 16; O2SAT 100
== END 2020-09-11 03:11 | disposition home or self-care (01) ==
PROVIDERS: Emergency Medicine; Emergency Provider Emergency Medicine; PCP Internal Medicine
DX: E11.65 Type 2 diabetes mellitus with hyperglycemia (principal); Z79.84 Long term (current) use of oral hypoglycemic drugs; Z95.1 Presence of aortocoronary bypass graft; F17.210 Nicotine dependence, cigarettes, uncomplicated
CPT/HCPCS: 12345; 36416; 36600; 80053; 81003; 82009; 82803; 82962; 85025; 96361; 96374; 96375; 99283; J1815; J2270; J2405; J7030

== ENCOUNTER 2021-04-17 19:46 | Outpatient (CLI) | payer MEDICARE, MEDICAID, SELFPAY | END 2021-04-17 19:47 | disposition home or self-care (01) | PROVIDERS: PCP Internal Medicine; Visit Provider Nurse Practitioner | DX: R06.00 Dyspnea, unspecified (principal); R60.9 Edema, unspecified | CPT/HCPCS: 36415; 83880; 85025 ==

== ENCOUNTER → 2021-06-19 11:33 | Outpatient (BNVA) | payer MEDICARE, MEDICAID, SELFPAY | PROVIDERS: PCP Family Medicine Adult Medicine; Visit Provider Family Medicine Adult Medicine | DX: E11.9 Type 2 diabetes mellitus without complications (principal); E66.01 Morbid (severe) obesity due to excess calories; Z13.6 Encounter for screening for cardiovascular disorders; J44.9 Chronic obstructive pulmonary disease, unspecified; R60.9 Edema, unspecified | CPT/HCPCS: 80053; 80061; 83036; 83880; 84443; 85025; 85651 ==

== ENCOUNTER 2021-08-25 08:58 | Emergency (ER) | payer MEDICARE, MEDICAID, SELFPAY ==
[2021-08-25 09:03] VITALS: BP 131/81; PULSE 91; RESP 17; TEMP 36.6; O2SAT 94; BMI 43.6
--- NOTE | 2021-08-25 09:14 | ED_ITS ---
HPI - SOB/Dyspnea General: Chief Complaint: Shortness of Breath/Dyspnea Stated Complaint: low 02: sent by [facility] Time Seen by Provider: 08/25/21 09:13 History of Present Illness: HPI Narrative: 50-year-old female presents emergency room complaining of increasing shortness of breath with productive cough that began overnight. She has had problems in the past with bronchitis she has a history of asthma she uses albuterol. She went to the local urgent care clinic they documented an O2 sat of 76% and she was told to go to the emergency room on arrival here she has been consistently in the mid 90s on room air. She is not demonstrating any cough. She denies any myalgias no anosmia she has had a little bit of a low-grade fever at home. She is not been started on any antibiotics that she is on Metformin for diabetes. Is also on lisinopril. MD elicited complaint: shortness of breath and cough Pertinent past history: COPD Onset (ago): hour(s) Timing: constant Severity: mild Exacerbating factors: exertion and coughing Relieving factors: oxygen, rest and bronchodilators Known history of: COPD Associated symptoms: Reports cough; Deny abdominal pain, chest congestion, chest pain, diaphoresis, dizziness, extremity pain, fever(s), hemoptysis, lightheadedness, paresthesias, polydipsia, syncope or vomiting Treatment prior to arrival: none Review of Systems Const: Denies: fever(s) or diaphoresis ENMT: Denies: throat pain, ear or mastoid pain, nasal discharge or nasal congestion Card: Denies: chest pain, lightheadedness or syncope Resp: Denies: hemoptysis or chest congestion GI: Denies: abdominal pain or vomiting : Denies: flank pain, difficulty voiding, dysuria, urinary frequency or urinary urgency Musc: Denies: extremity pain Skin/Breast: Denies: rash or pruritus Neuro: Denies: dizziness Endo: Denies: polydipsia PFSH ED PFSH: Medical History Bronchitis COPD (chronic obstructive pulmonary disease) Depression with anxiety Diabetes Edema Morbid obesity Osteoarthritis Yeast infection Surgical History History of bilateral tubal ligation History of bladder repair surgery History of cholecystectomy History of coronary artery bypass graft x 2 History of hysterectomy with bilateral oophorectomy Family History Denies family history of Anesthesia complication Bleeding disorder Social History Second hand smoke exposure: Yes Alcohol intake: former Adopted: No Caregiver/support person: Yes Lives independently: Yes Household members: spouse Housing: House Marital status: / service: No Current occupational status: disabled Current occupational exposures/hazards: No Pets and animals: No History of recent travel: No Sexually active: Yes Current gender identity: Female Mirella/Baptist: Denominational Special mirella needs: No Agree to transfusion: Yes Financial difficulty paying for basics: Decline to Answer Physical Exam Const: COMMON NORMALS: no acute distress GENERAL APPEARANCE: cooperative and comfortable ORIENTATION/CONSCIOUSNESS: Yes awake, Yes oriented to person, Yes oriented to place and Yes oriented to time HENMT: COMMON NORMALS: normocephalic, atraumatic and hearing grossly normal bilaterally HEAD & SCALP: normocephalic and atraumatic Neck/C-Spine: COMMON NORMALS: no JVD Resp: COMMON NORMALS: normal respiratory effort, No retractions, No use of accessory muscles and clear to auscultation bilaterally AUSCULTATION: clear to auscultation bilaterally Cardio: COMMON NORMALS: no JVD, regular rate, regular rhythm and No murmurs present (Cardio) RATE: regular rate RHYTHM: regular rhythm GI: COMMON NORMALS: Soft to palpation and No hepatosplenomegaly present AUSCULTATION: Yes normoactive bowel sounds PALPATION: Yes Soft to palpation, No Tenderness to palpation present (GI), No Guarding due to palpation present (GI) and Yes No hepatosplenomegaly present Extremity: COMMON NORMALS: normal to inspection, capillary refill normal, no clubbing, cyanosis or edema, no calf tenderness and no pedal edema Neuro: SENSORIUM/ORIENTATION: Yes oriented to person, Yes oriented to place a nd Yes oriented to time Skin: COMMON NORMALS: no rashes or lesions noted GENERAL SKIN EXAM: no rashes or lesions noted Course Vital Signs: Vital signs: Vital Signs Temperature 97.9 F 08/25/21 09:03 Pulse Rate 69 08/25/21 12:30 Respiratory Rate 18 08/25/21 12:30 Blood Pressure 113/75 08/25/21 12:30 Pulse Oximetry 90 08/25/21 12:30 MDM - SOB/Dyspnea MDM Narrative: Medical decision making narrative: Labs and imaging reviewed as on the chart. Improved with albuterol. Will discharge home on steroid Dosepak albuterol to use as needed and doxycycline. Return for further problems. Lab Data: Labs: Lab Results 08/25/21 08/25/21 08/25/21 11:37 11:37 11:37 Nasal/Oral COVID-1 9 PCR Cancelled SARS-CoV-2 RNA (RT -PCR) Not detected (NOT DETECTED) SARS-CoV-2 Ag (Rap id) Negative (Negative) Discharge Plan Discharge Patient Disposition: Home Clinical Impression: Bronchitis Condition: Stable Prescriptions: New doxycycline hyclate 100 mg capsule 100 mg PO BID 10 Days Qty: 20 RF: 0 Medrol (Alek) 4 mg tablets,dose pack See Rx Instructions .ROUTE .COMPLEX Qty: 21 RF: 0 No Action tramadol 50 mg tablet 50 mg PO BID PRN (Reason: moderate to severe pain) 30 Days Qty: 30 RF: 1 amitriptyline 25 mg tablet 25 mg PO .hs Qty: 30 RF: 5 lisinopril 10 mg tablet 10 mg PO DAILY Qty: 30 RF: 5 meloxicam 15 mg tablet 15 mg PO DAILY Qty: 30 RF: 5 glipizide 5 mg tablet 10 mg PO BID Qty: 120 RF: 5 albuterol sulfate [Ventolin HFA] 90 mcg/actuation HFA aerosol inhaler 2 puff inhalation Q6H PRN (Reason: shortness of breath or wheezing) Qty: 8.5 RF: 3 sertraline 100 mg tablet 100 mg PO DAILY Qty: 30 RF: 5 furosemide 20 mg tablet 20 mg PO BID PRN (Reason: edema) Qty: 60 RF: 5 metformin 750 mg tablet extended release 24 hr 750 mg PO BID Qty: 60 RF: 5 Discharge Orders: Discharge ED (Routine); Ordered 08/25/21 Ordered By: Anderson Flores Referrals: Anthony Kwon MD [Primary Care Provider] - Patient Instructions: Opioid Safety Activity Restrictions/Additional Instructions: Use albuterol as needed. You are given prescription for doxycycline and prednisone for bronchitis. You are also tested for Covid recommend you maintain self quarantine until results are available. Coding Level of Care Code ED Farm Machinery Assembler for Serg Mckee
--- NOTE | 2021-08-25 09:14 | XR_ITS ---
WS: [id number] PORTABLE CHEST HISTORY: dyspnea/cough COMPARISON: 05/11/2020 Prior CABG. Hyperexpanded lungs. No pneumonia. Normal vasculature. No pleural effusion or pneumothorax. Cardiac size: Normal. Mediastinum/Aorta: Mild atherosclerosis aorta. No osseous abnormality seen. XR/XR chest 1V portable [id number] IMPRESSION: Chronic emphysema and prior CABG. No pneumonia.
[2021-08-25 11:43] VITALS: O2SAT 91
[2021-08-25 12:11] LABS: SARS Covid-2 Antigen Negative (Negative)
[2021-08-25 12:30] VITALS: BP 113/75; PULSE 69; RESP 18; O2SAT 90
[2021-08-26 14:38] LABS: Quest SARS-CoV-2 RNA NOT DETECTED (NOT DETECTED)
--- NOTE | 2021-08-26 16:35 | PC.NURSE ---
Called number on Pt registration form, no answer or voicemail set up. Will try again around 1730.
== END 2021-08-25 12:31 | disposition home or self-care (01) ==
PROVIDERS: Emergency Provider Family Medicine; PCP Family Medicine Adult Medicine
DX: J40 Bronchitis, not specified as acute or chronic (principal); Z79.899 Other long term (current) drug therapy; J44.9 Chronic obstructive pulmonary disease, unspecified; E11.9 Type 2 diabetes mellitus without complications; Z95.1 Presence of aortocoronary bypass graft; Z77.22 Contact with and (suspected) exposure to environmental tobacco smoke (acute) (chronic); Z20.822 Contact with and (suspected) exposure to COVID-19
CPT/HCPCS: 71045; 87426; 87635; 99282

== ENCOUNTER 2021-11-14 09:53 | Outpatient (CLI) | payer OTHER, SELFPAY ==
--- NOTE | 2021-11-14 10:04 | XR_ITS ---
WS: [id number] Exam: XR lumbar spine 2-3V* [id number] Date/Time of Exam: 11/14/2021 10:04 AM Reason For Exam: LOW BACK PAIN Comparison 05/29/2014. No fracture or dislocation. Disc spaces are relatively well maintained. Mild spo ndylosis. Osteopenia. XR/XR lumbar spine 2-3V* [id number] IMPRESSION: 1. No fracture or malalignment. 2. Mild spondylosis. Osteopenia.
== END 2021-11-14 09:54 | disposition home or self-care (01) ==
LOC: RAD 09:59
PROVIDERS: PCP Family Medicine Adult Medicine; Visit Provider Dermatology
DX: Z02.71 Encounter for disability determination (principal); M54.50 Low back pain, unspecified; M47.816 Spondylosis without myelopathy or radiculopathy, lumbar region; M85.88 Other specified disorders of bone density and structure, other site
CPT/HCPCS: 72100

== ENCOUNTER 2021-12-05 10:34 | Outpatient (CLI) | payer MEDICARE, MEDICAID, SELFPAY ==
--- NOTE | 2021-12-05 11:00 | CT_ITS ---
WS: [id number] CT CHEST WITHOUT INTRAVENOUS CONTRAST HISTORY: Chronic cough/bronchitis TECHNIQUE: Contiguous 5 mm axial imaging performed on the thorax. Coronal and sagittal reformats are submitted. All CT scans at [facility] use at least one of these dose optimization techniques: automated exposure control; mA and/or kV adjustment per patient size (includes targeted exams where dose is matched to clinical indication); or iterative reconstruction. CONTRAST: None DLP: 1072.11 mGycm COMPARISON: 01/08/2016 Lungs and central airway: Nodular opacification at the RIGHT lung base. Nodular infiltrate in the ant erior RIGHT middle lobe and at the base of the RIGHT lower lobe. Opacification is partially obscured by breathing motion artifact during this examination. Otherwise lungs are hyperexpanded from emphysem a. Mild interstitial thickening is diffuse from respiratory bronchiolitis related to smoking. Pleura: Normal. No pleural effusion. Heart and pericardium: Normal size heart with no pericardial effusion. Mediastinum and rahul: No adenopathy identified on this unenhanced study. There are benign calcified l ymph nodes in the mediastinum and hilar regions. Vessels: Normal size aortic and pulmonary artery. No coronary artery calcifications. Chest wall and lower neck: Prior median sternotomy. Upper abdomen: Motion artifact through the upper abdomen. Liver appears enlarged with hepatic steatos is. Osseous structures: Mild thoracic curvature and scoliosis. CT/CT chest wo con [id number] IMPRESSION: 1. RIGHT middle and lower lobe reticular nodular infiltrate is probably relate d to pneumonia. With history of smoking consider follow-up to resolution. Follo w-up noncontrast chest CT in 6-8 weeks is recommended. This opacifications woul d probably not be visible by radiograph. 2. Prior median sternotomy. No adenopathy identified.
== END 2021-12-05 10:35 | disposition home or self-care (01) ==
PROVIDERS: PCP Family Medicine Adult Medicine; Visit Provider Family Medicine Adult Medicine
DX: R05.3 Chronic cough (principal); J40 Bronchitis, not specified as acute or chronic
CPT/HCPCS: 71250

== ENCOUNTER → 2022-01-25 11:52 | Outpatient (BNVA) | payer MEDICARE, MEDICAID, SELFPAY | PROVIDERS: PCP Family Medicine Adult Medicine; Visit Provider Internal Medicine Pulmonary Disease | DX: J44.9 Chronic obstructive pulmonary disease, unspecified (principal); J18.9 Pneumonia, unspecified organism; F17.210 Nicotine dependence, cigarettes, uncomplicated; Z95.1 Presence of aortocoronary bypass graft; Z71.6 Tobacco abuse counseling; E66.01 Morbid (severe) obesity due to excess calories; Z68.41 Body mass index [BMI] 40.0-44.9, adult | CPT/HCPCS: 71046; 99204 ==

== ENCOUNTER 2022-01-31 15:40 | Outpatient (CLI) | payer MEDICARE, MEDICAID, SELFPAY ==
--- NOTE | 2022-01-31 15:59 | MM_ITS ---
WS: [id number] BILATERAL DIGITAL SCREENING MAMMOGRAPHY WITH CAD AND 3-D TOMOSYNTHESIS CLINICAL INFORMATION: 2 or 3 years since her last screening mammogram HISTORY: Screening mammogram. No current complaints. COMPARISON: TECHNIQUE: Bilateral CC and MLO views. FINDINGS: Scattered fibroglandular densities bilaterally. Lucent centered calcification RIGHT breast. 10 mm asy mmetric density upper outer RIGHT breast appears more prominent compared to previous. Recommend RIGHT diagnostic mammography 3-D Tomosynthesis with spot compression views and ultrasound for further eval uation. LEFT breast is unremarkable. MM/[place] [id number] IMPRESSION: BI-RADS: 0-Incomplete: Need additional imaging evaluation FOLLOW UP: Need Additional Imaging Recommend RIGHT diagnostic mammography 3-D Tomosynthesis with spot compression views and ultrasound for further evaluation
== END 2022-01-31 15:41 | disposition home or self-care (01) ==
LOC: RADSHAW 15:48
PROVIDERS: PCP Family Medicine Adult Medicine; Visit Provider Family Medicine Adult Medicine
DX: Z12.31 Encounter for screening mammogram for malignant neoplasm of breast (principal)
CPT/HCPCS: 77063; 77067

== ENCOUNTER 2022-02-05 08:11 | Outpatient (CLI) | payer MEDICARE, MEDICAID, SELFPAY ==
--- NOTE | 2022-02-05 08:28 | CT_ITS ---
WS: [id number] CT chest wo con [id number] REASON FOR EXAM: COPD IV CONTRAST ADMINISTERED: Noncontrast TOTAL EXAM DLP: 767.[address] scans at [facility] use at least one of these dose optimization techniques: automat ed exposure control; mA and/or kV adjustment per patient size (includes targeted exams where dose is matched to clinical indication); or iterative reconstruction. FINDINGS: In comparison to the previous examination of 12/05/2021, the reticular nodular infiltrative process in the posterior lateral right lower lung has essentially completely resolved. Calcified granulomatous disease in both hilar regions and both lungs. No new findings are identified within the pulmonary parenchyma, hilar regions, or mediastinum. CT/CT chest wo con [id number] IMPRESSION: Resolution of previously demonstrated right lung abnormality as above. Presumed resolution of inflammatory process.
== END 2022-02-05 08:12 | disposition home or self-care (01) ==
LOC: RAD 08:12
PROVIDERS: PCP Family Medicine Adult Medicine; Visit Provider Family Medicine Adult Medicine
DX: J44.9 Chronic obstructive pulmonary disease, unspecified (principal); R91.8 Other nonspecific abnormal finding of lung field
CPT/HCPCS: 71250

== ENCOUNTER 2022-02-21 14:33 | Outpatient (CLI) | payer MEDICARE, MEDICAID, SELFPAY ==
--- NOTE | 2022-02-21 14:42 | MM_ITS ---
WS: [id number] RIGHT 3D TOMOSYNTHESIS DIGITAL MAMMOGRAPHY WITH CAD CLINICAL INFORMATION: abnormal Mammogram 01/31/2022 COMPARISON: January 31, 2022 TECHNIQUE: 5 views of the right breast were obtained. FINDINGS: Scattered fibroglandular densities of the right breast. Again seen is the ovoid density upper outer R IGHT breast measuring 10 mm. This persists on spot compression views. This may represent an intramamm armin lymph node and was present in 2011. Ultrasound is pending. ULTRASOUND BREAST RIGHT TECHNIQUE: Ultrasound right breast focused area of concern. CLINICAL INFORMATION: abnormal Mammogram 01/31/2022 COMPARISON: None. FINDINGS: Ultrasound RIGHT breast 9 to 12:00 position. Normal underlying dense parenchymal tissue. No cystic or solid lesions. No suspicious lesions to target for biopsy. Recommend return to annual screening mamm ography. MM/[place] [id number] IMPRESSION: BI-RADS: 2-Benign FOLLOW UP: 1 Year Follow-up Recommend return to annual screening mammography.
== END 2022-02-21 14:34 | disposition home or self-care (01) ==
LOC: RAD 14:40
PROVIDERS: PCP Family Medicine Adult Medicine; Visit Provider Family Medicine Adult Medicine
DX: R92.8 Other abnormal and inconclusive findings on diagnostic imaging of breast (principal)
CPT/HCPCS: 76642; 77061

== ENCOUNTER → 2022-02-22 13:47 | Outpatient (BNVA) | payer MEDICARE, MEDICAID, SELFPAY | PROVIDERS: PCP Family Medicine Adult Medicine; Visit Provider Family Medicine Adult Medicine | DX: E11.9 Type 2 diabetes mellitus without complications (principal); J44.9 Chronic obstructive pulmonary disease, unspecified; E66.01 Morbid (severe) obesity due to excess calories; Z68.41 Body mass index [BMI] 40.0-44.9, adult | CPT/HCPCS: 80053; 83036 ==

== ENCOUNTER → 2022-03-28 16:17 | Outpatient (BNVA) | payer MEDICARE, MEDICAID, SELFPAY | PROVIDERS: PCP Family Medicine Adult Medicine; Visit Provider Internal Medicine Cardiovascular Disease | DX: I13.0 Hypertensive heart and chronic kidney disease with heart failure and stage 1 through stage 4 chronic kidney disease, or unspecified chronic kidney disease (principal); I50.33 Acute on chronic diastolic (congestive) heart failure; R06.02 Shortness of breath; N18.9 Chronic kidney disease, unspecified | CPT/HCPCS: 80048; 83880; 84443; 99204; 99205 ==

== ENCOUNTER 2022-07-28 10:50 | Emergency (ER) | payer MEDICARE, MEDICAID, SELFPAY ==
[2022-07-28 11:00] VITALS: BP 118/69; PULSE 103; RESP 20; TEMP 36.4; O2SAT 97; BMI 46.5
--- NOTE | 2022-07-28 11:25 | CTR_ITS ---
PROCEDURE INFORMATION: Exam: CT Head Without Contrast Exam date and time: 07/28/2022 11:53 AM Age: 51 years old Clinical indication: Injury or trauma; Fall; Blunt trauma (contusions or hematomas); Consciousness not specified TECHNIQUE: Imaging protocol: Computed tomography of the head without contrast. Axial, coronal and sagittal reformatted images were created and reviewed. Radiation optimization: All CT scans at this facility use at least one of these dose optimization techniques: automated exposure control; mA and/or kV adjustment per patient size (includes targeted exams where dose is matched to clinical indication); or iterative reconstruction. COMPARISON: CT head wo con* [id number] 09/22/2018 8:03 PM RADIATION DOSE METRICS: Total DLP (mGy-cm): 1207.56 FINDINGS: Brain: Subtle, patchy areas of hypoattenuation in the periventricular and subcortical white matter, nonspecific but suggestive of mild chronic small vessel ischemic disease. No CT evidence of acute intracranial hemorrhage or acute territorial infarction. No significant mass effect or midline shift. Basal cisterns patent. Cerebral ventricles: Prominence of the cortical sulci, cisterns and ventricular system, consistent with cerebral and cerebellar volume loss. Cavum septum pellucidum and vergae. Paranasal sinuses: Minimal ethmoid mucosal thickening. No fluid levels. Mastoid air cells: Grossly unremarkable. Bones/joints: No acute osseous abnormality. Soft tissues: Left periorbital soft tissue injury. CT/CT head wo con* [id number]: 1[address] No CT evidence of acute intracranial pathology. 2. Additional findings, as above.
--- NOTE | 2022-07-28 11:25 | CTR_ITS ---
PROCEDURE INFORMATION: Exam: CT Cervical Spine Without Contrast Exam date and time: 07/28/2022 11:53 AM Age: 51 years old Clinical indication: Injury or trauma; Fall; Blunt trauma TECHNIQUE: Imaging protocol: Computed tomography of the cervical spine without contrast. Axial, coronal and sagittal reformatted images were created and reviewed. Radiation optimization: All CT scans at this facility use at least one of these dose optimization techniques: automated exposure control; mA and/or kV adjustment per patient size (includes targeted exams where dose is matched to clinical indication); or iterative reconstruction. COMPARISON: CT cervical spin wo con* [id number] 08/04/2017 10:31 PM RADIATION DOSE METRICS: Total DLP (mGy-cm): 355 FINDINGS: Bones/joints: Osteopenia. Reversal of the normal cervical lordosis. No CT evidence of acute fracture, dislocation or subluxation. Minimal anterolisthesis of C2 on C3 and C3 on C4. Alignment otherwise anatomic. S shaped scoliosis. Vertebral body heights maintained. Congenital C6-C7 fusion. Mild multilevel degenerative changes, characterized by disc space narrowing, osteophytosis and uncovertebral and facet joint hypertrophy. Mild multilevel spinal canal and neural foraminal narrowing. Lungs: Grossly unremarkable. Soft tissues: Grossly unremarkable. CT/CT cervical spin wo con* [id number]: 1[address] No CT evidence of acute cervical spine traumatic injury. 2. Additional findings, as above.
--- NOTE | 2022-07-28 11:25 | PC.NURSE ---
Patient with open gash above left eye, states she got caught up in her rug and hit head on the tv stand, denies LOC, denies vision changes.
[2022-07-28] MEDS: tetanus-diphtheria tox (adult) 0.5 mL SDV IM (11:35)
--- NOTE | 2022-07-28 12:58 | ED_ITS ---
HPI - Headache General: Chief Complaint: Headache Stated Complaint: Head lac Time Seen by Provider: 07/28/22 11:07 History of Present Illness: 51 yo female patient presents to ER with laceration to left forehead. Pt states tripped on rug and hit on coffee table. Pt states she sequeira no issues or symptoms prior to fall. Pt states she did not have any LOC and is not on blood thinners. Pt denies any neck pain. Associated symptoms: Deny chest pain or fever(s) Review of Systems Narrative: 4 cm laceration to left forehead Const: Denies: fever(s) Eyes: Denies: change in vision Card: Denies: chest pain Resp: Denies: dyspnea Musc: Denies: neck pain, back pain or extremity pain Neuro: Reports: headache(s) PFSH ED PFSH: Medical History COPD (chronic obstructive pulmonary disease) Depression with anxiety Diabetes Edema Insomnia disorder Morbid obesity with BMI of 40.0-44.9, adult Osteoarthritis Wellness examination Yeast infection Yeast infection involving the vagina and surrounding area Surgical History History of bilateral tubal ligation History of bladder repair surgery History of cholecystectomy History of hysterectomy with bilateral oophorectomy Family History Father Clotting disorder Bleeding disorder CAD (coronary artery disease) 6 bypass Diabetes Grandfather CAD (coronary artery disease) triple bypass Grandmother Cancer Mother Diabetes Family/Other Diabetes Denies family history of Dementia Chronic kidney disease (CKD) Suicide Anesthesia complication Lung disease Stroke Social History Smoking and tobacco status: current every day smoker cigarettes Packs smoked per day: 2 Years cigarettes smoked: 35 Second hand smoke exposure: Yes Alcohol intake: former Adopted: No Caregiver/support person: Yes Lives independently: Yes Household members: spouse Housing: House Marital status: / service: No Current occupational status: disabled Current occupational exposures/hazards: No Pets and animals: No History of recent travel: No Sexually active: Yes Current gender identity: Female Mirella/Roman Catholic: Judaism Special mirella needs: No Agree to transfusion: Yes Financial difficulty paying for basics: Decline to Answer Physical Exam Const: COMMON NORMALS: no acute distress, average body habitus, patient oriented x3, no limitations, healthy appearing, alert and well nourished HENMT: HEAD & SCALP: other (4 cm linear laceration to left forehead) Eye: COMMON NORMALS: Equal, round and reactive pupils present, EOMs intact bilaterally and conjunctivae normal CONJUNCTIVA: Yes conjunctivae normal PUPIL: Yes Equal, round and reactive pupils present Neck/C-Spine: COMMON NORMALS: full ROM, no lymphadenopathy, supple, no meningeal signs, no JVD, Thyroid normal and No carotid bruits THYROID: Thyroid normal Cardio: COMMON NORMALS: no JVD Neuro: COMMON NORMALS: patient oriented x3 SENSORIUM/ORIENTATION: Yes alert MENINGEAL SIGNS: Yes no meningeal signs Skin: WOUNDS: Yes wounds noted (4 cm linear laceration to left forehead) Procedures Laceration Laceration 1: Site: other (left forehead) Size (cm): 4 Description: linear Local Anesthetic: lidocaine 1% Amount of anesthesia used (mL): 5 Pre-repair: wound explored and irrigated extensively Skin layer closed with: nylon (5.0) Number of sutures: 11 Technique: simple, interrupted Course Vital Signs: Vital signs: Vital Signs Temperature 97.5 F L 07/28/22 11:00 Pulse Rate 103 H 07/28/22 11:00 Respiratory Rate 20 H 07/28/22 11:00 Blood Pressure 118/69 07/28/22 11:00 Pulse Oximetry 97 07/28/22 11:00 MDM - Headache Medical Decision Making Patient is well appearing non toxic and in no acute distress. 51 yo female patient presents to ER with laceration to left forehead. Pt states tripped on rug and hit on coffee table. Pt states she sequeira no issues or symptoms prior to fall. Pt states she did not have any LOC and is not on blood thinners. Pt denies any neck pain. Please see procedure note for stuure repair. Will start on Keflex. return precautions and home care advised. CT head and cervical spine are negative for any acute findings Differential Diagnosis Likely migraine, tension headache, subarachnoid hemorrhage, headache and meningitis Lab Data Radiology Impressions Cervical Spine CT 07/28/22 11:[address]: [address] evidence of acute cervical spine traumatic injury. 2. Additional findings, as above. Head CT 07/28/22 11:[address]: 1[address] evidence of acute intracranial pathology. 2. Additional findings, as above. Discharge Plan Discharge Patient Disposition: Home Clinical Impression: Laceration Condition: Stable Prescriptions: New cephalexin 500 mg capsule 500 mg PO Q8H 7 Days Qty: 21 0RF No Action potassium chloride 20 mEq tablet extended release 20 meq PO DAILY Qty: 30 5RF Laxative (sennosides) 25 mg tablet 25 mg PO BID omeprazole 20 mg capsule,delayed release(DR/EC) 20 mg PO DAILY fluticasone propion-salmeterol 232-14 mcg/actuation aerosol powdr breath activated 1 inh inhalation BID albuterol sulfate 90 mcg/actuation HFA aerosol inhaler See Rx Instructions .ROUTE .COMPLEX Qty: 9 3RF Dose Instruction: INHALE 2 PUFFS BY MOUTH EVERY 6 HOURS NEEDED FOR SHORTNESS OF BREATH AND FOR WHEEZING Rx Instructions: INHALE 2 PUFFS BY MOUTH EVERY 6 HOURS NEEDED FOR SHORTNESS OF BREATH AND FOR WHEEZING Jardiance 25 mg tablet 25 mg PO QAM Qty: 90 1RF metformin 750 mg tablet extended release 24 hr See Rx Instructions .ROUTE .COMPLEX Qty: 60 5RF Dose Instruction: Take 1 tablet by mouth twice daily Rx Instructions: Take 1 tablet by mouth twice daily glipizide 5 mg tablet See Rx Instructions .ROUTE .COMPLEX Qty: 120 5RF Dose Instruction: Take 2 tablets by mouth twice daily Rx Instructions: Take 2 tablets by mouth twice daily lisinopril 10 mg tablet See Rx Instructions .ROUTE .COMPLEX Qty: 90 3RF Dose Instruction: Take 1 tablet by mouth once daily Rx Instructions: Take 1 tablet by mouth once daily furosemide 20 mg tablet See Rx Instructions .ROUTE .COMPLEX Qty: 60 5RF Dose Instruction: TAKE 1 TABLET BY MOUTH TWICE DAILY NEEDED FOR EDEMA Rx Instructions: TAKE 1 TABLET BY MOUTH TWICE DAILY NEEDED FOR EDEMA bupropion HCl 200 mg tablet sustained-release 12 hr See Rx Instructions .ROUTE .COMPLEX Qty: 30 5RF Dose Instruction: TAKE 1 TABLET BY MOUTH ONCE DAILY IN THE MORNING FOR MENTAL HEALTH AND SMOKING CESSATION Rx Instructions: TAKE 1 TABLET BY MOUTH ONCE DAILY IN THE MORNING FOR MENTAL HEALTH AND SMOKING CESSATION meloxicam 15 mg tablet See Rx Instructions .ROUTE .COMPLEX Qty: 30 3RF Dose Instruction: TAKE 1 TABLET BY MOUTH ONCE DAILY WITH FOOD FOR ARITHRITIS AND JOINT PAIN Rx Instructions: TAKE 1 TABLET BY MOUTH ONCE DAILY WITH FOOD FOR ARITHRITIS AND JOINT PAIN tramadol 50 mg tablet 75 mg PO DAILY 30 Days Qty: 45 2RF Rx Instructions: 75 mg daily refill on or after 30-day intervals diphenhydramine-acetaminophen [Tylenol PM Extra Strength] 25-500 mg tablet 1 tab PO .qhs PRN (Reason: sleep) Qty: 90 1RF fluticasone propionate 50 mcg/actuation spray,suspension See Rx Instructions .ROUTE .COMPLEX Qty: 16 5RF Dose Instruction: Use 1 spray(s) in each nostril once daily Rx Instructions: Use 1 spray(s) in each nostril once daily doxycycline hyclate 100 mg capsule See Rx Instructions .ROUTE .COMPLEX Qty: 30 0RF Dose Instruction: TAKE 1 CAPSULE BY MOUTH TWICE DAILY FOR BRONCHITIS Rx Instructions: TAKE 1 CAPSULE BY MOUTH TWICE DAILY FOR BRONCHITIS Discharge Orders: Discharge ED (Routine); Ordered 07/28/22 Ordered By: Estrella Lopez Referrals: Anthony Kwon MD [Primary Care Provider] - Discharge Diet: Advance as tolerated Discharge Activity: Increase activity as tolerated Patient Instructions: Opioid Safety Activity Restrictions/Additional Instructions: Please take medications as prescribed Please follow wound care instructions as provided Please return to ER in 6-7 days for suture removal or sooner with any worsening of symptoms Coding Level of Care Code ED Divisional Merchandising Manager for Serg Mckee
[2022-07-28 13:03] VITALS: BP 128/76; PULSE 90; RESP 17; TEMP 36.2; O2SAT 96
[2022-07-28 13:25] VITALS: BP 128/76; PULSE 90; RESP 17; TEMP 36.2; O2SAT 96
== END 2022-07-28 13:28 | disposition home or self-care (01) ==
PROVIDERS: Emergency Provider Registered Nurse; PCP Family Medicine Adult Medicine
DX: S01.81XA Laceration without foreign body of other part of head, initial encounter (principal); Z79.84 Long term (current) use of oral hypoglycemic drugs; F17.210 Nicotine dependence, cigarettes, uncomplicated; J44.9 Chronic obstructive pulmonary disease, unspecified; E11.9 Type 2 diabetes mellitus without complications; W18.09XA Striking against other object with subsequent fall, initial encounter; Z23 Encounter for immunization
CPT/HCPCS: 12013; 70450; 72125; 90471; 90714; 99284

== ENCOUNTER → 2022-08-20 10:45 | Outpatient (BNVA) | payer MEDICARE, MEDICAID, SELFPAY | PROVIDERS: PCP Family Medicine Adult Medicine; Visit Provider Internal Medicine Cardiovascular Disease | DX: R60.9 Edema, unspecified (principal); J44.9 Chronic obstructive pulmonary disease, unspecified; I10 Essential (primary) hypertension; G47.33 Obstructive sleep apnea (adult) (pediatric); Z98.890 Other specified postprocedural states; E11.9 Type 2 diabetes mellitus without complications; Z79.84 Long term (current) use of oral hypoglycemic drugs; F17.210 Nicotine dependence, cigarettes, uncomplicated | CPT/HCPCS: 99214 ==

== ENCOUNTER → 2022-08-21 13:11 | Outpatient (BNVA) | payer MEDICARE, MEDICAID, SELFPAY | PROVIDERS: PCP Family Medicine Adult Medicine; Visit Provider Podiatrist Foot & Ankle Surgery | DX: M25.572 Pain in left ankle and joints of left foot (principal); G89.29 Other chronic pain; I73.9 Peripheral vascular disease, unspecified; E11.9 Type 2 diabetes mellitus without complications; Z79.84 Long term (current) use of oral hypoglycemic drugs | CPT/HCPCS: 73610; 99203; 99204 ==

== ENCOUNTER 2022-11-19 13:49 | Outpatient (CLI) | payer MEDICARE, MEDICAID, SELFPAY ==
--- NOTE | 2022-11-19 14:15 | USCV_ITS ---
Debby Vinson Age: 51 Gender: F : 1970 Exam Date: 11/19/2022 14:09 Ordering Phys: Anthony Kwon MD Technologist: NOLVIA Exam Location: [facility] [place] Indication: BLE PAIN AND SWELLING HISTORY: Lower extremity swelling. Lower extremity pain. Lower extremity edema. PROCEDURES: Venous duplex imaging was performed in bilateral lower extremities. Venous duplex imaging was performed in only the left lower extremity. The following venous structures were evaluated: common femoral vein, profunda vein, proximal portion of the greater saphenous vein, superficial femoral vein, and the popliteal vein. In addition, the posterior tibial and peroneal trunk were evaluated. Serial compression, augmentation maneuvers, and spectral Doppler flow evaluation were performed. FINDINGS: No evidence of DVT seen in any vessel visualized at this time. Examination was technically limited due to body habitus. CONCLUSIONS No evidence of right lower extremity DVT. No evidence of left lower extremity DVT. Jacob Oscar MD (Electronically Signed) Final Date: 19 November 2022 17:13 S
== END 2022-11-19 13:50 | disposition home or self-care (01) ==
LOC: RAD 13:52
PROVIDERS: PCP Family Medicine Adult Medicine; Visit Provider Family Medicine Adult Medicine
DX: R60.9 Edema, unspecified (principal); L03.90 Cellulitis, unspecified; M79.604 Pain in right leg; M79.605 Pain in left leg; M79.89 Other specified soft tissue disorders
CPT/HCPCS: 93970

== ENCOUNTER 2022-11-21 14:42 | Outpatient (CLI) | payer MEDICARE, MEDICAID, SELFPAY ==
--- NOTE | 2022-11-21 15:00 | USCV_ITS ---
Vinson Debby Age: 51 Gender: F : 1970 Exam Date: 11/21/2022 14:52 Ordering Phys: Anthony Kwon MD Technologist: CT Exam Location: [facility] [place]_ Indication: swelling,edema Risk Factors: Previous Vascular Surgery: RIGHT LEFT BP: 121.0 / 69.00 BP: 130.0/ 88.00 0 0 Waveform Velocity (cm/s) Velocity (cm/s) Waveform Triphasic 144.6 Iliac Prox 95.6 Triphasic Triphasic 114.4 Iliac Mid 118.5 Triphasic Triphasic Iliac Distal Triphasic 123.6 92.8 Triphasic 116.9 STOCK HANGER 79.5 Triphasic Triphasic 86.0 SFA Prox 80.0 Triphasic Triphasic 76.1 SFA Mid 77.1 Triphasic Triphasic 87.1 SFA Dist 75.8 Triphasic Triphasic 61.2 POP 75.8 Triphasic Triphasic 57.3 PACK CHANGER 79.0 Triphasic Triphasic 54.1 DPA 91.8 Triphasic 1.0 REGINE 1.0 FINDINGS Resting REGINE of 1.0 bilaterally Normal arterial Doppler waveforms and Doppler flow velocities No unstable plaques or lesions noted CONCLUSIONS Normal resting ABIs bilaterally. Evidence of arterial obstruction, based on the above findings Dr Deonna Richardson MD [facility] (Electronically Signed) Final Date: 22 November 2022 08:12 S
== END 2022-11-21 14:43 | disposition home or self-care (01) ==
LOC: RAD 14:43
PROVIDERS: PCP Family Medicine Adult Medicine; Visit Provider Family Medicine Adult Medicine
DX: I73.9 Peripheral vascular disease, unspecified (principal); M79.89 Other specified soft tissue disorders
CPT/HCPCS: 93925

== ENCOUNTER → 2024-01-15 16:16 | Outpatient (BNVA) | payer MEDICARE, MEDICAID, SELFPAY | PROVIDERS: PCP Family Medicine Adult Medicine; Visit Provider Family Medicine Adult Medicine | DX: I10 Essential (primary) hypertension; E11.9 Type 2 diabetes mellitus without complications; E66.01 Morbid (severe) obesity due to excess calories; Z68.41 Body mass index [BMI] 40.0-44.9, adult | CPT/HCPCS: 80053; 83036; 85025 ==

== ENCOUNTER → 2024-09-11 12:16 | Outpatient (BNVA) | payer OTHER, MEDICAID, SELFPAY | PROVIDERS: PCP Family Medicine Adult Medicine; Visit Provider Nurse Practitioner | DX: Q25.46 Tortuous aortic arch (principal); M41.84 Other forms of scoliosis, thoracic region; I70.90 Unspecified atherosclerosis; R06.02 Shortness of breath | CPT/HCPCS: 71046 ==

== ENCOUNTER 2024-11-23 12:58 | Emergency (ER) | payer OTHER, MEDICAID, SELFPAY ==
[2024-11-23 13:00] VITALS: BP 155/76; PULSE 105; RESP 18; TEMP 36.7; O2SAT 96; BMI 43.2
--- NOTE | 2024-11-23 13:10 | W.ED.SKABFB ---
HPI - Skin/Abscess/Foreign Bdy General: Chief complaint: Skin/Abscess/Foreign Body Stated complaint: spot on back pain Time Seen by Provider: 11/23/24 13:07 Source: patient Mode of arrival: ambulatory Limitations: no limitations History of Present Illness: Patient is a 53-year-old female presents to ED today with complaint of an abscess to her back. Patient states she has other smaller areas/abscesses that seem to be healing on their own. She does report a history of staph. Has not noticed any drainage from the abscess to her back. No fevers. MD complaint: abscess/boil Onset (ago): day(s) Location: back Severity: moderate Pain Consistency: constant Relieving factors: none Exacerbating factors: none Context: none Associated symptoms: Reports no associated symptoms; Deny chills, fever(s), nausea or vomiting Treatments prior to arrival: none Related Data Home Medications Medication Instructions Recorded Confirmed atorvastatin 40 mg tablet 40 mg PO DAILY 11/23/24 11/23/24 baclofen 20 mg tablet 20 mg PO TID muscle cramping 11/23/24 11/23/24 Previous Rx's Medication Instructions Recorded large walker with seat #1 ea 12/06/22 Generic glucometer and strips #1 ea 08/21/23 loratadine 10 mg chewable tablet 10 mg PO DAILY allergies #90 tabs 01/15/24 (Claritin) mupirocin calcium 2 % topical cream 1 applic topical TID #60 grams 01/15/24 pen needle, diabetic 32 gauge x #100 ea 01/22/24 (Comfort EZ Pen [place]) nicotine 14 mg/24 hr daily 1 patch transdermal DAILY smoking 02/27/24 transdermal patch cessation #14 ea blood-glucose meter,continuous #1 ea 03/04/24 (Dexcom G7 Enterprise Security Architect) blood-glucose sensor (Dexcom G7 #3 ea 03/04/24 Sensor device) docusate sodium 250 mg capsule 250 mg PO BID #60 caps 06/10/24 lisinopril 10 mg tablet 10 mg PO DAILY high BP/diabetes 06/10/24 #90 tabs potassium chloride 20 mEq 40 meq (2 x 20 mEq) PO BID 06/10/24 tablet,extended release replacement potassium #180 tabs bupropion HCl 150 mg tablet,12 hr 150 mg PO QAM depression #30 tabs 07/23/24 sustained-release insulin glargine 100 unit/mL (3 45 unit (0.45 mL) SUBCUT .qhs #15 09/09/ mL) subcutaneous pen (Basaglar mL KwikPen U-100 Insulin) insulin glargine 100 unit/mL (3 45 unit (0.45 mL) SUBCUT .q hs #30 16/ mL) subcutaneous pen (Lantus mL Solostar U-100 Insulin) albuterol sulfate 90 mcg/actuation 1 puff inhalation QID PRN 09/11/24 aerosol inhaler shortness of breath or wheezing #8.5 grams fluticasone propionate 50 2 spray intranasal DAILY PRN nasal 09/11/24 mcg/actuation nasal congestion #16 grams spray,suspension benzonatate 100 mg capsule 100 mg PO TID PRN cough #14 caps 11/23/24 doxycycline monohydrate 100 mg 100 mg PO Q12H 10 days #20 caps 11/23/24 capsule furosemide 40 mg tablet 80 mg (2 x 40 mg) PO BID PRN BP & 11/23/24 edema 30 days #60 tabs Allergies Allergy/AdvReac Type Severity Reaction Status Date / Time rofecoxib [From Vioxx] Allergy Intermediate Unknown Verified 11/23/24 13:03 amitriptyline AdvReac Severe Sleep Verified 11/23/24 13:03 walking/falls Review of Systems Const: Denies: fever(s), chills, body aches, fatigue or malaise Card: Denies: chest pain Resp: Reports: non-productive cough; Denies: dyspnea, wheezing, pain on inspiration or hemoptysis GI: Denies: nausea or vomiting Musc: Reports: extremity swelling (chronic); Denies: neck pain, back pain, extremity pain, joint pain or joint swelling Skin/Breast: Reports: other (multiple abscesses) Neuro: Denies: headache(s), numbness in extremities, weakness in extremities, sensory changes or dizziness PFSH ED PFSH: Medical History 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 Smoker Encounter for smoking cessation counseling Lymphedema associated with obesity CHF (congestive heart failure) Chronic pain of lower extremity, bilateral Allergic rhinitis due to allergen Bilateral leg cramps Excoriation (skin-picking) disorder Severe generalized edema Scoliosis Insomnia disorder Wellness examination Morbid obesity with BMI of 40.0-44.9, adult Osteoarthritis COPD (chronic obstructive pulmonary disease) Diabetes Depression with anxiety Surgical History History of cholecystectomy History of bilateral tubal ligation History of hysterectomy with bilateral oophorectomy History of bladder repair surgery Family History Father Clotting disorder Bleeding disorder CAD (coronary artery disease) 6 bypass Diabetes Grandfather CAD (coronary artery disease) triple bypass Grandmother Cancer Mother Diabetes Family/Other Diabetes Denies family history of Dementia Chronic kidney disease (CKD) Suicide Anesthesia complication Lung disease Stroke Social History Smoking and tobacco/nicotine status: current every day tobacco/nicotine user cigarettes Packs smoked per day: 2 Years cigarettes smoked: 35 Second hand smoke exposure: Yes Alcohol intake: former Substance/Drug Use: never Adopted: No Caregiver/support person: Yes Lives independently: Yes Household members: spouse Housing: House Marital status: / service: No Current occupational status: disabled Current occupational exposures/hazards: No Pets and animals: No Sexually active: Yes Do you think of yourself as: Straight/Heterosexual Current gender identity: Female Mirella/Restorationist: Alevism Special mirella needs: No Agree to transfusion: Yes Female Reproductive History: Spontaneous abortions: No Physical Exam Const: COMMON NORMALS: no acute distress, patient oriented x3, alert and well nourished GENERAL APPEARANCE: cooperative NUTRITIONAL APPEARANCE: obese ORIENTATION/CONSCIOUSNESS: Yes awake, Yes oriented to person, Yes oriented to place and Yes oriented to time Resp: COMMON NORMALS: normal respiratory effort and clear to auscultation bilaterally AUSCULTATION: clear to auscultation bilaterally Cardio: COMMON NORMALS: regular rate and regular rhythm RATE: regular rate RHYTHM: regular rhythm Extremity: NARRATIVE EXTREMITY EXAM: chronic edema/lymphedema Neuro: COMMON NORMALS: patient oriented x3, moves all extremities, no focal motor deficits, no sensory deficits noted and gait normal SENSORIUM/ORIENTATION: Yes alert, Yes oriented to person, Yes oriented to place and Yes oriented to time Skin: NARRATIVE SKIN EXAM: few small abscess to L AC region, face/chin that do not require drainage abscess to L posterior back with purulent drainage noted; large amount of induration; no fluctuance; no cellulitis Procedures Abscess I/D Site: back Side (if applicable): left Local Anesthetic: lidocaine 1% and with epi Amount of anesthesia used (mL): 2.0 Technique: incised with #11 blade Amount of fluid expressed (mL): 6 Packing used?: plain Course Vital Signs: Vital signs: Vital Signs Temperature 98.1 F 11/23/24 13:00 Pulse Rate 105 H 11/23/24 13:00 Respiratory Rate 18 11/23/24 13:00 Blood Pressure 155/76 11/23/24 13:00 Pulse Oximetry 96 11/23/24 13:00 Oxygen Delivery Me thod Room Air 11/23/24 13:00 MDM - Skin/Abscess/Foreign Bdy Medicial Decision Making Back abscess drained and packed. Culture obtained. Will place on abx. Return precautions discussed. She is requesting refills on her lasix and tessalon pearls. Medical Records I reviewed the patient's medical records. No radiology studies performed this visit Discharge Plan Discharge Patient Disposition: Home Clinical Impression: Abscess of back, Medication refill Condition: Stable Prescriptions: New benzonatate 100 mg capsule 100 mg PO TID PRN (Reason: cough) Qty: 14 0RF Rx Instructions: Can take 1-2 tabs up to TID. Max 600mg/day. doxycycline monohydrate 100 mg capsule 100 mg PO Q12H 10 Days Qty: 20 0RF Continued furosemide 40 mg tablet 80 mg PO BID PRN (Reason: BP & edema) 30 Days Qty: 60 0RF No Action mupirocin calcium 2 % cream 1 applic topical TID Qty: 60 2RF Claritin 10 mg tablet,chewable 10 mg PO DAILY Qty: 90 3RF nicotine 14 mg/24 hr patch 24 hour 1 patch transdermal DAILY Qty: 14 0RF docusate sodium 250 mg capsule 250 mg PO BID Qty: 60 5RF lisinopril 10 mg tablet 10 mg PO DAILY Qty: 90 0RF potassium chloride 20 mEq tablet extended release 40 meq PO BID Qty: 180 1RF (DME) Dexcom G7 Enterprise Security Architect Misc See Rx Instructions .Route Qty: 1 0RF Rx Instructions: As directed (DME) Dexcom G7 Sensor Device See Rx Instructions .Route Qty: 3 1RF Rx Instructions: As directed bupropion HCl 150 mg tablet sustained-release 12 hr 150 mg PO QAM Qty: 30 2RF fluticasone propionate 50 mcg/actuation spray,suspension 2 spray intranasal DAILY PRN (Reason: nasal congestion) Qty: 16 0RF albuterol sulfate 90 mcg/actuation HFA aerosol inhaler 1 puff inhalation QID PRN (Reason: shortness of breath or wheezing) Qty: 8.5 0RF (DME) large walker with seat See Rx Instructions .Route .MEDSUPPLY Qty: 1 0RF Rx Instructions: If not there to medical equipment (DME) Generic glucometer and strips See Rx Instructions .Route .MEDSUPPLY Qty: 1 0RF Rx Instructions: As directed (DME) pen needle, diabetic [Comfort EZ Pen [place]] 32 gauge x 5/32 needle See Rx Instructions .Route Qty: 100 2RF Rx Instructions: Check BS three times a day. insulin glargine [Lantus Solostar U-100 Insulin] 100 unit/mL (3 mL) insulin pen 45 unit SUBCUT .q hs Qty: 30 3RF insulin glargine [Basaglar KwikPen U-100 Insulin] 100 unit/mL (3 mL) insulin pen 45 unit SUBCUT .qhs Qty: 15 5RF atorvastatin 40 mg tablet 40 mg PO DAILY Rx Instructions: Take 1 tablet by mouth once daily baclofen 20 mg tablet 20 mg PO TID Discharge Orders: Discharge ED (Routine); Ordered 11/23/24 Ordered By: Kianna Mcintyre Referrals: Anthony Kwon MD [Primary Care Provider] - Activity Restrictions/Additional Instructions: Please monitor your abscess for worsening symptoms such as worsening redness, swelling, increased drainage, red streaking, or fevers. If you have been on antibiotics for over 48 hours and continue to worsen you need to immediately return to the emergency department for re-evaluation. If your abscess was incised and drained and packing was placed, you may remove packing in 72 hours. Coding Level of Care Code ED Nutritional Health Coach for Serg Mckee
[2024-11-23] MEDS: lidocaine-epi 1% 20 mL INJ INJECTION (13:23)
--- NOTE | 2024-11-23 13:23 | PC.NURSE ---
LIDOCAINE GIVEN TO PROVIDER FOR ADMINSTRATION.
== END 2024-11-23 14:03 | disposition home or self-care (01) ==
PROVIDERS: Emergency Provider Physician Assistant; PCP Family Medicine Adult Medicine
DX: L02.212 Cutaneous abscess of back [any part, except buttock and flank] (principal); Z76.0 Encounter for issue of repeat prescription; Z79.4 Long term (current) use of insulin; F17.210 Nicotine dependence, cigarettes, uncomplicated; E11.9 Type 2 diabetes mellitus without complications; J44.9 Chronic obstructive pulmonary disease, unspecified; I50.9 Heart failure, unspecified
CPT/HCPCS: 10060; 87070; 87075; 87077; 87186; 87205; 99283

== ENCOUNTER 2024-12-20 19:23 | Emergency (ER) | payer MEDICARE, MEDICAID, SELFPAY ==
[2024-12-20 20:29] VITALS: BP 133/82; PULSE 100; RESP 18; TEMP 36.4; O2SAT 96
[2024-12-20 21:23] LABS: Basophils % 0.6 %; Eosinophils # 0.1 10^3/uL (0.0-0.8); Eosinophils % 1.5 %; Hematocrit 44.4 % (36-47); Lymphocytes # 3.1 10^3/uL (0.8-4.8); Lymphocytes % 46.5 %; Mean Corpuscular HGB Conc 30.2 g/dL (30-55); Mean Corpuscular Hemoglobin 25.5 pg (27-33); Mean Corpuscular Volume 84.4 fl (85-98); Mean Platelet Volume 9.3 fL (7.4-10.4); Monocytes # 0.5 10^3/uL (0.2-0.9); Monocytes % 6.9 %; Neutrophils # 2.95 10^3/uL (1.8-7.7); Neutrophils % 44.3 %; Nucleated Red Blood Cells % 0 %; Platelet Count 188 10^3/cmm (157-399); Red Blood Count 5.26 10^6/uL (3.85-5.65); Red Cell Distribution Width 15.6 % (12.1-15.1); White Blood Count 6.65 10^3/uL (3.29-11.43)
[2024-12-20 21:53] LABS: Alanine Aminotransferase 27 U/L (0-33); Albumin Level 3.8 g/dL (3.5-5.2); Alkaline Phosphatase 122 U/L (35-105); Aspartate Amino Transferase 21 U/L (0-32); Blood Urea Nitrogen 17 mg/dL (6-20); Calcium 9.4 mg/dL (8.5-10.5); Carbon Dioxide 26 mmol/L (22-29); Chloride 95 mmol/L (98-107); Creatinine Clr Calc Pharmacy 137.8158; Globulin 3.6 g/dL (1.3-4.6); Glomerular Filtration Rate 104.2 mL/min (90-130); Glucose 289 mg/dL (65-115); NT Pro B Type Natriuretic Pept 106 pg/mL (0-125); Osmolality Calculated 292 mOsm/kg (285-295); Sodium 135 mmol/L (136-145); Total Bilirubin 0.2 mg/dL (0.15-1.2); Total Protein 7.4 g/dL (6.6-8.7)
[2024-12-20 22:01] LABS: Anion Gap 17.7 (5-19); Potassium 3.7 mmol/L (3.5-5.1)
--- NOTE | 2024-12-20 23:37 | PC.NURSE ---
2328: Patient not found to be in ER waiting room, ER bathroom or the [facility] lobby.
== END 2024-12-20 23:28 | disposition left against medical advice (07) ==
PROVIDERS: Emergency Medicine; Emergency Provider Family Medicine; PCP Family Medicine Adult Medicine
DX: Z53.21 Procedure and treatment not carried out due to patient leaving prior to being seen by health care provider (principal)
CPT/HCPCS: 36415; 80053; 83880; 85025

== ENCOUNTER 2025-04-25 01:38 | Emergency (ER) | payer MEDICARE, MEDICAID, SELFPAY ==
[2025-04-25 01:49] VITALS: BP 93/57; PULSE 92; RESP 20; TEMP 37.1; O2SAT 96; BMI 48.0
--- NOTE | 2025-04-25 02:56 | XRR_ITS ---
PROCEDURE INFORMATION: Exam: XR Chest Exam date and time: 04/25/2025 2:59 AM Age: 54 years old Clinical indication: Shortness of breath; Prior surgery; Surgery date: 6+ months; Surgery type: Valve replacement. Gb; C/O SOB TECHNIQUE: Imaging protocol: Radiologic exam of the chest. Views: 1 view. COMPARISON: CR XR chest 2V* [id number] 09/11/2024 12:27 PM FINDINGS: Lungs: Unremarkable. No consolidation. Pleural spaces: Unremarkable. No pleural effusion. No pneumothorax. Heart/Mediastinum: Unremarkable. No cardiomegaly. Bones/joints: Prior sternotomy. No acute osseous abnormality. XR/XR chest 1V portable [id number] IMPRESSION: No visualized acute cardiopulmonary process.
[2025-04-25 03:37] LABS: Basophils # 0.1 10^3/uL (0.0-0.1); Basophils % 0.5 %; Eosinophils # 0.2 10^3/uL (0.0-0.8); Eosinophils % 1.5 %; Hematocrit 40.2 % (36-47); Lymphocytes # 3.6 10^3/uL (0.8-4.8); Lymphocytes % 34.5 %; Mean Corpuscular HGB Conc 29.9 g/dL (30-55); Mean Corpuscular Hemoglobin 24.5 pg (27-33); Mean Platelet Volume 9.2 fL (7.4-10.4); Monocytes # 0.8 10^3/uL (0.2-0.9); Monocytes % 7.6 %; Neutrophils # 5.88 10^3/uL (1.8-7.7); Neutrophils % 55.6 %; Nucleated Red Blood Cells % 0 %; Platelet Count 254 10^3/cmm (157-399); Red Cell Distribution Width 15.9 % (12.1-15.1); White Blood Count 10.56 10^3/uL (3.29-11.43)
[2025-04-25 04:02] VITALS: BP 117/75; PULSE 96; RESP 22; O2SAT 98
[2025-04-25 04:30] LABS: Alanine Aminotransferase 20 U/L (0-33); Albumin Level 3.6 g/dL (3.5-5.2); Alkaline Phosphatase 129 U/L (35-105); Aspartate Amino Transferase 17 U/L (0-32); Blood Urea Nitrogen 19 mg/dL (6-20); Calcium 9.5 mg/dL (8.5-10.5); Carbon Dioxide 29 mmol/L (22-29); Creatinine Clr Calc Pharmacy 121.2857; Globulin 3.9 g/dL (1.3-4.6); Glomerular Filtration Rate 87.2 mL/min (90-130); Glucose 78 mg/dL (65-115); Total Bilirubin 0.2 mg/dL (0.15-1.2); Total Protein 7.5 g/dL (6.6-8.7)
[2025-04-25 04:33] VITALS: BP 94/69; PULSE 92; RESP 20; O2SAT 94
--- NOTE | 2025-04-25 04:41 | W.ED.SKABFB ---
HPI - Skin/Abscess/Foreign Bdy General: Chief complaint: Skin/Abscess/Foreign Body Stated complaint: SOB urgent cr told scabies closed ears, throat leg Time Seen by Provider: 04/25/25 03:47 History of Present Illness: 54-year-old female patient presenting with lesions on her legs, ears, neck and chest. These are itchy she says. She has been treated for scabies 3 times now she says with permethrin without improvement. She was placed on antibiotic, as she has a history of MRSA infection and sepsis. But after a couple of doses, her antibiotics were mistakenly swept into the trash she says. Now, her legs are more swollen, more generally red and painful. Related Data Home Medications ?Medication ?Instructions ?Recorded ?Confirmed baclofen 20 mg tablet 20 mg PO TID muscle cramping 11/23/24 04/10/25 Previous Rx's ?Medication ?Instructions ?Recorded large walker with seat #1 ea 12/06/22 Generic glucometer and strips #1 ea 08/21/23 mupirocin calcium 2 % topical cream 1 applic topical TID #60 grams 01/15/24 pen needle, diabetic 32 gauge x #100 ea 01/22/24 (Comfort EZ Pen [place]) blood-glucose sensor (Dexcom G7 #3 ea 03/04/24 Sensor device) blood-glucose,supply chain director,cont #1 ea 03/04/24 (Dexcom G7 Advanced Seal Delivery System) docusate sodium 250 mg capsule 250 mg PO BID #60 caps 06/10/24 lisinopril 10 mg tablet 10 mg PO DAILY high BP/diabetes 06/10/24 Held on 04/01/25. #90 tabs Instructions: Guidelines potassium chloride 20 mEq 40 meq (2 x 20 mEq) PO BID 06/10/24 tablet,extended release replacement potassium #180 tabs bupropion HCl 150 mg tablet,12 hr 150 mg PO QAM depression #30 tabs 06/16/24 sustained-release albuterol sulfate 90 mcg/actuation 1 puff inhalation QID PRN 09/11/24 aerosol inhaler shortness of breath or wheezing #8.5 grams fluticasone propionate 50 2 spray intranasal DAILY PRN nasal 09/11/24 mcg/actuation nasal congestion #16 grams spray,suspension benzonatate 100 mg capsule 100 mg PO TID PRN cough #14 caps 12/30/24 sulfamethoxazole 800 1 tab PO BID 7 days #14 tabs 01/09/25 mg-trimethoprim 160 mg tablet (Bactrim DS) insulin glargine 100 unit/mL (3 45 unit (0.45 mL) SUBCUT .qhs #15 03/01/25 mL) subcutaneous pen (Basaglar mL KwikPen U-100 Insulin) mupirocin 2 % topical ointment 1 applic topical BID #22 grams 03/01/25 (Centany) ondansetron 8 mg disintegrating 8 mg PO Q8H PRN nausea and 03/01/25 tablet vomiting 5 days #15 tabs permethrin 5 % topical cream 1 applic topical .Q 7 days 2 doses 03/10/25 #180 grams atorvastatin 40 mg tablet 40 mg PO DAILY #30 tabs 03/23/25 mupirocin 2 % topical ointment 1 applic topical BID #22 grams 04/10/25 (Centany) permethrin 5 % topical cream 1 applic topical Q14D 2 doses #120 04/10/25 grams furosemide 40 mg tablet See Rx Instructions .Route 04/14/25 .COMPLEX #60 tabs doxycycline hyclate 100 mg capsule 100 mg PO BID 14 days #28 caps 04/25/25 ivermectin 6 mg tablet 24 mg (4 x 6 mg) PO DAILY 2 doses 04/25/25 #8 tabs Allergies Allergy/AdvReac Type Severity Reaction Status Date / Time rofecoxib (From Vioxx) Allergy Intermediate Unknown Verified 04/10/25 18:49 amitriptyline AdvReac Severe Sleep Verified 04/10/25 18:49 walking/falls [facility] ED PFSH: Medical History 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 Smoker Encounter for smoking cessation counseling Lymphedema associated with obesity CHF (congestive heart failure) Chronic pain of lower extremity, bilateral Allergic rhinitis due to allergen Bilateral leg cramps Excoriation (skin-picking) disorder Severe generalized edema Scoliosis Insomnia disorder Wellness examination Morbid obesity with BMI of 40.0-44.9, adult Osteoarthritis COPD (chronic obstructive pulmonary disease) Diabetes Depression with anxiety Surgical History History of cholecystectomy History of bilateral tubal ligation History of hysterectomy with bilateral oophorectomy History of bladder repair surgery Family History Father Clotting disorder Bleeding disorder CAD (coronary artery disease) 6 bypass Diabetes Grandfather CAD (coronary artery disease) triple bypass Grandmother Cancer Mother Diabetes Family/Other Diabetes Denies family history of Dementia Chronic kidney disease (CKD) Suicide Anesthesia complication Lung disease Stroke Social History Smoking and tobacco/nicotine status: never used tobacco/nicotine Second hand smoke exposure: Yes Alcohol intake: former Substance/Drug Use: never Adopted: No Caregiver/support person: Yes Lives independently: Yes Household members: spouse Housing: House Marital status: / service: No Current occupational status: disabled Current occupational exposures/hazards: No Pets and animals: No Sexually active: Yes Do you think of yourself as: Straight/Heterosexual Current gender identity: Female Mirella/Sikhism: Religious Special mirella needs: No Agree to transfusion: Yes Female Reproductive History: Spontaneous abortions: No Physical Exam Const: GENERAL APPEARANCE: not ill appearing and not frail appearing HENMT: COMMON NORMALS: normocephalic, atraumatic and Normal external nose present HEAD & SCALP: normocephalic and atraumatic FACE & SINUS: normal facial exam and face symmetric NOSE: Normal external nose present Eye: COMMON NORMALS: Equal, round and reactive pupils present and EOMs intact bilaterally PUPIL: Yes Equal, round and reactive pupils present Neck/C-Spine: GENERAL: Yes trachea midline Chest: CHEST: Yes Symmetrical chest wall rise Resp: COMMON NORMALS: normal respiratory effort, No retractions, No use of accessory muscles and clear to auscultation bilaterally AUSCULTATION: clear to auscultation bilaterally Cardio: COMMON NORMALS: regular rate and regular rhythm RATE: regular rate RHYTHM: regular rhythm Neuro: [place] COMA SCALE: document GCS findings [place] coma scale eye opening: Spontaneous [place] coma scale verbal response: Orientated [place] coma scale motor response: Obey commands [place] coma scale total score: 15 SENSORY EXAM: Yes extremities (intact) Skin: NARRATIVE SKIN EXAM: Exam reveals multiple skin ulcerations, somewhat tracks resembling mite or scabies infestation present on legs, ears, neck, and chest. Examination of the bilateral lower extremities reveals chronic lymphedema, with mildly warm cellulitic changes. No streaking. Course Vital Signs: Vital signs: Vital Signs Temperature 98.8 F 04/25/25 01:49 Pulse Rate 96 04/25/25 06:07 Respiratory Rate 21 H 04/25/25 06:07 Blood Pressure 99/69 04/25/25 06:07 Pulse Oximetry 95 04/25/25 06:07 Oxygen Delivery Me thod Room Air 04/25/25 06:07 MDM - Skin/Abscess/Foreign Bdy Medicial Decision Making Patient appears nontoxic. She is afebrile here. Blood pressure is mildly low. White blood cell count is 10. Lactic acid is 2. Blood pressure has normalized. Heart rate is below 100. Sed rate is only 34. CRP is 52. She has received 1200 mg of vancomycin, and a fluid bolus. She will go home on doxycycline. She is positive for amphetamines, likely the cause of the excoriation/skin picking type lesions although scabies cannot be ruled out. Because of this, she will be prescribed ivermectin. Lab Data 04/25/25 03:20 04/25/25 03:20 Radiology Impressions Chest X-Ray 04/25/25 02:56 IMPRESSION: No visualized acute cardiopulmonary process. Laboratory Results WBC 10.56 10^3/uL (3.29-11.43) 04/25/25 03:20 RBC 4.90 10^6/uL (3.85-5.65) 04/25/25 03:20 Hgb 12.00 g/dL (11.27-16.99) 04/25/25 03:20 Hct 40.2 % (36-47) 04/25/25 03:20 MCV 82.0 fl (85-98) L 04/25/25 03:20 MCH 24.5 pg (27-33) L 04/25/25 03:20 MCHC 29.9 g/dL (30-55) L 04/25/25 03:20 RDW 15.9 % (12.1-15.1) H 04/25/25 03:20 Plt Count 254 10^3/cmm (157-399) 04/25/25 03:20 MPV 9.2 fL (7.4-10.4) 04/25/25 03:20 Neut % (Auto) 55.6 % 04/25/25 03:20 Lymph % (Auto) 34.5 % 04/25/25 03:20 [place] % (Auto) 7.6 % 04/25/25 03:20 Eos % (Auto) 1.5 % 04/25/25 03:20 Baso % (Auto) 0.5 % 04/25/25 03:20 Neut # (Auto) 5.88 10^3/uL (1.8-7.7) 04/25/25 03:20 Lymph # (Auto) 3.6 10^3/uL (0.8-4.8) 04/25/25 03:20 [place] # (Auto) 0.8 10^3/uL (0.2-0.9) 04/25/25 03:20 Eos # (Auto) 0.2 10^3/uL (0.0-0.8) 04/25/25 03:20 Baso # (Auto) 0.1 10^3/uL (0.0-0.1) 04/25/25 03:20 Nucleated RBC % (auto) 0 % 04/25/25 03:20 Nucleated RBCs # 0.0 /100WBC 04/25/25 03:20 ESR 34 mm/hr (0-15) H 04/25/25 03:20 Sodium 138 mmol/L (136-145) 04/25/25 03:20 Potassium 3.5 mmol/L (3.5-5.1) 04/25/25 03:20 Chloride 97 mmol/L (98-107) L 04/25/25 03:20 Carbon Dioxide 29 mmol/L (22-29) 04/25/25 03:20 Anion Gap 15.5 (5-19) 04/25/25 03:20 BUN 19 mg/dL (6-20) 04/25/25 03:20 Creatinine 0.7 mg/dL (0.5-0.9) 04/25/25 03:20 GFR Calculation 87.2 mL/min (90-130) L 04/25/25 03:20 Glucose 78 mg/dL (65-115) 04/25/25 03:20 Calculated Osmolality 287 mOsm/kg (285-295) 04/25/25 03:20 Lactic Acid 2.0 mmol/L (0.5-2.2) 04/25/25 03:20 Calcium 9.5 mg/dL (8.5-10.5) 04/25/25 03:20 Total Bilirubin 0.2 mg/dL (0.15-1.2) 04/25/25 03:20 AST 17 U/L (0-32) 04/25/25 03:20 ALT 20 U/L (0-33) 04/25/25 03:20 Alkaline Phosphatase 129 U/L (35-105) H 04/25/25 03:20 C-Reactive Protein 51.9 mg/L (0.0-4.9) H 04/25/25 03:20 NT-Pro-B Natriuret Pep 163 pg/mL (0-125) H 04/25/25 03:20 Total Protein 7.5 g/dL (6.6-8.7) 04/25/25 03:20 Albumin 3.6 g/dL (3.5-5.2) 04/25/25 03:20 Globulin 3.9 g/dL (1.3-4.6) 04/25/25 03:20 Urine Color Yellow (Yellow) 04/25/25 06:05 Urine Appearance Clear (CLEAR) 04/25/25 06:05 Urine pH 7.5 (5-7) 04/25/25 06:05 Ur Specific [place] 1.011 (1.005-1.030) 04/25/25 06:05 Urine Protein Negative (Negative) 04/25/25 06:05 Urine Glucose (UA) 3+ (Normal) H 04/25/25 06:05 Urine Ketones Negative (Negative) 04/25/25 06:05 Urine Blood Negative (Negative) 04/25/25 06:05 Urine Nitrate Negative (Negative) 04/25/25 06:05 Urine Bilirubin Negative (Negative) 04/25/25 06:05 Urine Urobilinogen 0.2 mg/dL (Negative) 04/25/25 06:05 Ur Leukocyte Esterase Negative (Negative) 04/25/25 06:05 Urine RBC 0-2 /hpf (0-2) 04/25/25 06:05 Urine WBC 0-5 /hpf (0-5) 04/25/25 06:05 Ur Squamous Epith Cells 0-5 /hpf (0-5) 04/25/25 06:05 Amorphous Sediment Not Reportable 04/25/25 06:05 Urine Bacteria None seen /hpf (NONE) 04/25/25 06:05 Hyaline Casts 0.81 /lpf 04/25/25 06:05 Urine Opiates Screen Negative ng/mL (Negative) 04/25/25 06:05 Ur Barbiturates Screen Negative ng/mL (Negative) 04/25/25 06:05 Ur Phencyclidine Scrn Negative ng/mL (Negative) 04/25/25 06:05 Ur Amphetamines Screen Positive ng/mL (Negative) H 04/25/25 06:05 U Benzodiazepines Scrn Negative ng/mL (Negative) 04/25/25 06:05 Urine Cocaine Screen Negative ng/mL (Negative) 04/25/25 06:05 U Marijuana (THC) Screen Negative ng/mL (Negative) 04/25/25 06:05 All radiology interpretation(s) finalized by discharge Discharge Plan Discharge Patient Disposition: Home Clinical Impression: Cellulitis, Excoriation (skin-picking) disorder, Lymphedema associated with obesity Condition: Stable Prescriptions: New ivermectin 6 mg tablet 24 mg PO DAILY Qty: 8 0RF Rx Instructions: Take doses 1 week apart Continued doxycycline hyclate 100 mg capsule 100 mg PO BID 14 Days Qty: 28 0RF No Action mupirocin calcium 2 % cream 1 applic topical TID Qty: 60 2RF docusate sodium 250 mg capsule 250 mg PO BID Qty: 60 5RF lisinopril 10 mg tablet 10 mg PO DAILY Qty: 90 0RF potassium chloride 20 mEq tablet extended release 40 meq PO BID Qty: 180 1RF ondansetron 8 mg tablet,disintegrating 8 mg PO Q8H PRN (Reason: nausea and vomiting) 5 Days Qty: 15 0RF mupirocin [Centany] 2 % ointment 1 applic topical BID Qty: 22 0RF mupirocin [Centany] 2 % ointment 1 applic topical BID Qty: 22 2RF permethrin 5 % cream 1 applic topical Q14D Qty: 120 2RF Rx Instructions: apply second treatment 14 days after first treatment, leave on 8 hours and wash off (DME) Dexcom G7 Advanced Seal Delivery System Misc See Rx Instructions .Route Qty: 1 0RF Rx Instructions: As directed (DME) Dexcom G7 Sensor Device See Rx Instructions .Route Qty: 3 1RF Rx Instructions: As directed bupropion HCl 150 mg tablet sustained-release 12 hr 150 mg PO QAM Qty: 30 2RF fluticasone propionate 50 mcg/actuation spray,suspension 2 spray intranasal DAILY PRN (Reason: nasal congestion) Qty: 16 0RF albuterol sulfate 90 mcg/actuation HFA aerosol inhaler 1 puff inhalation QID PRN (Reason: shortness of breath or wheezing) Qty: 8.5 0RF sulfamethoxazole-trimethoprim [Bactrim DS] 800-160 mg tablet 1 tab PO BID 7 Days Qty: 14 0RF permethrin 5 % cream 1 applic topical .Q 7 days Qty: 180 0RF Rx Instructions: apply second treatment 14 days after first treatment if live lice remain (DME) large walker with seat See Rx Instructions .Route .MEDSUPPLY Qty: 1 0RF Rx Instructions: If not there to medical equipment (DME) Generic glucometer and strips See Rx Instructions .Route .MEDSUPPLY Qty: 1 0RF Rx Instructions: As directed (DME) pen needle, diabetic [Comfort EZ Pen [place]] 32 gauge x 5/32 needle See Rx Instructions .Route Qty: 100 2RF Rx Instructions: Check BS three times a day. insulin glargine [Basaglar KwikPen U-100 Insulin] 100 unit/mL (3 mL) insulin pen 45 unit SUBCUT .qhs Qty: 15 5RF atorvastatin 40 mg tablet 40 mg PO DAILY Qty: 30 3RF Rx Instructions: Take 1 tablet by mouth once daily furosemide 40 mg tablet See Rx Instructions .ROUTE .COMPLEX Qty: 60 0RF Dose Instruction: TAKE 2 TABLETS BY MOUTH TWICE DAILY NEEDED FOR BLOOD PRESSURE AND EDEMA Rx Instructions: TAKE 2 TABLETS BY MOUTH TWICE DAILY NEEDED FOR BLOOD PRESSURE AND EDEMA baclofen 20 mg tablet 20 mg PO TID benzonatate 100 mg capsule 100 mg PO TID PRN (Reason: cough) Qty: 14 0RF Rx Instructions: Can take 1-2 tabs up to TID. Max 600mg/day. Discharge Orders: Discharge ED (Routine); Ordered 04/25/25 Ordered By: Sonu Michele Patient Instructions: Cellulitis (ED), Scabies (ED), Opioid Safety, Pain Management Activity Restrictions/Additional Instructions: Take oral ivermectin for scabies, 2 doses 1 week apart. Make sure you wash all clothing and bedding, dry on high heat. Vacuum your floors. Otherwise, reinfestation can occur. Take antibiotics for cellulitis. Elevate your feet. Return for fever greater than 100 despite 3-4 doses of antibiotics, worsening redness despite the above, other concerning symptoms. Print Language: Armenian Coding Level of Care Code ED Block Layer for Serg Mckee
[2025-04-25 05:01] LABS: Erythrocyte Sedimentation Rate 34 mm/hr (0-15)
[2025-04-25 05:27] LABS: C Reactive Protein 51.9 mg/L (0.0-4.9); NT Pro B Type Natriuretic Pept 163 pg/mL (0-125)
[2025-04-25 05:49] LABS: Anion Gap 15.5 (5-19); Chloride 97 mmol/L (98-107); Osmolality Calculated 287 mOsm/kg (285-295); Potassium 3.5 mmol/L (3.5-5.1); Sodium 138 mmol/L (136-145)
[2025-04-25] MEDS: FUROsemide 10 mg/mL SDV 4mL 40 MG IVP (06:01)
[2025-04-25] MEDS: sodium chloride 0.9% 1,000 ML 999 ML IV (06:04)
[2025-04-25] MEDS: vancomycin 1,250 MG/250 ML PIGGYBACK 166.67 MG IV (06:04)
[2025-04-25 06:07] VITALS: BP 99/69; PULSE 96; RESP 21; O2SAT 95
[2025-04-25 06:17] LABS: Bilirubin Urine Negative (Negative); Blood Urine Negative (Negative); Glucose Urine UA 3+ (Normal); Ketones Urine Negative (Negative); Leukocyte Esterase Urine Negative (Negative); Nitrate Urine Negative (Negative); Protein Urine Negative (Negative); Specific Gravity, Urine 1.011 (1.005-1.030); Urine Appearance Clear (CLEAR); Urine Color Yellow (Yellow); Urobilinogen Urine 0.2 mg/dL (Negative); pH Urine 7.5 (5-7)
[2025-04-25 06:22] LABS: Add Urine Microscopic? YES; Bacteria Urine None Seen /hpf; Hyaline Casts Urine 0.81 /lpf; RBC Urine 0-2 /hpf (0-2); Squamous Epithelial Cell Urine 0-5 /hpf (0-5); WBC Urine 0-5 /hpf (0-5)
[2025-04-25 06:27] LABS: Amphetamines Screen Urine Positive (Negative); Barbiturates Screen Urine Negative (Negative); Benzodiazepines Screen Urine Negative (Negative); Cocaine Screen Urine Negative (Negative); Opiate Screen Urine Negative (Negative); PCP Screen Urine Negative (Negative); THC Screen Urine Negative (Negative)
== END 2025-04-25 08:30 | disposition home or self-care (01) ==
PROVIDERS: Emergency Provider Emergency Medicine
DX: L03.116 Cellulitis of left lower limb (principal); L03.115 Cellulitis of right lower limb; F42.4 Excoriation (skin-picking) disorder; I89.0 Lymphedema, not elsewhere classified; Z79.4 Long term (current) use of insulin; E11.9 Type 2 diabetes mellitus without complications; I50.9 Heart failure, unspecified; J44.9 Chronic obstructive pulmonary disease, unspecified
CPT/HCPCS: 36415; 71045; 80053; 80306; 81001; 83605; 83880; 85025; 85651; 86140; 87040; 96374; 99284; J1938; J3370; J7030

== ENCOUNTER 2025-05-22 16:19 | Emergency (ER) | payer MEDICARE, MEDICAID, SELFPAY ==
--- OUTSIDE RECORDS SUMMARY | 2016-10-29 11:38 | XMS_ITS | Continuity of Care Document ---
Author Organization [facility] Address [id number] [address] Phone Care Team Providers Care Equipment Sterilizer Name Role Phone Unavailable Unavailable Unavailable Allergies, Adverse Reactions, Alerts Substance Reaction Status Criticality latex Active No Information Medications Medication Instructions Dosage Effective Dates (start - stop) Status Comments OneTouch Ultra Test strips Use 1 strip by intradermal route every day 1 strip - Active Seroquel 50 mg tablet take 1 tablet by ORAL route every bedtime Increase by 50 mg every week up to 150 mg at bedtime 50 MG - Active diclofenac sodium 50 mg tablet,delayed release take 1 tablet by oral route 2 times every day 50 MG - Active tramadol 50 mg tablet take 1 - 2 Tablet by oral route every 8 - 12 hours as needed 50 MG - Active Please do not refill more often than every 28 days metformin 500 mg tablet take 1 tablet by oral route 2 times every day with morning and evening meals 500 MG - Active Procedures Procedure Date OFFICE/OUTPATIENT VISIT, NEW COMPREHEN METABOLIC PANEL GLYCOSYLATED HEMOGLOBIN TEST ASSAY THYROID STIM HORMONE HCV, RT-PCR, Quant (non-graph) 16 ROUTINE VENIPUNCTURE COMPLETE CBC AUTOMATED URINALYSIS AUTO W/O SCOPE REFRACTION EYE EXAM, NEW PATIENT IMMUNIZATION ADMIN TDAP VACCINE >7 IM X-ray Knees, Bilateral Standing - AP Ere ct of both X-ray Lumbar Spine, Routine - AP, Latera l, Spot, 3 Views OFFICE/OUTPATIENT VISIT, NEW ASSAY OF URINE CREATININE (PP $8.75) May DRUG SCREEN SINGLE (PP $40) COMPREHEN METABOLIC PANEL (PP $18) ANTINUCLEAR ANTIBODIES (PP $20.50) C-REACTIVE PROTEIN (PP $8.75) 4 RHEUMATOID FACTOR, QUANT (PP $9.75) ROUTINE VENIPUNCTURE (PP $3.50) 014 COMPLETE CBC, AUTOMATED Advance Directives Directive Yes / No Effective Date File Name No Information Encounters Encounter Description Practice Location Reason(s) For Visit Diagnoses Date Provider Providers Copied on Encounter [facility], [id number]- [facility], [place], [place], [id number], [place] tel:[phone] Family Medicine F1 No Information 6 No Information [facility], [id number]- [place], [place], [id number], [place] tel:[phone] Family Medicine F1 No Information 6 No Information [facility], [id number]- [place], [place], [address], [place] tel:[phone] Family Medicine F1 Low back pain 6 No Information OFFICE/OUTPA TIENT VISIT, [facility], [id number]- [place], [place], [id number], [place] tel:[phone] Family Medicine F1 Follow Up of med refill (chief complaint)poss ible bladder infection (chief complaint)arth ritis (chief complaint) Type II DM without complicationL ow back painNicotine dependence, unspecified, uncomplicated Hepatitis CDysuriaPain in kneeCardiac valve disorder in diseases classified elsewhere No Information [facility], [id number]- [facility], [place], [place], [address], [place] tel:[phone] Family Medicine F1 Low back painType 2 diabetes mellitus without complications 6 No Information [facility], [id number], [facility] [place], [id number], [place] tel:[phone] Family Medicine F1 Dysuria 6 No Information [facility], [id number], [facility] [place], [address], [place] tel:[phone] Family Medicine F1 No Information 4 No Information [facility], [id number] [facility], [facility] [place], [id number], [place] tel:[phone] Vision F1 Routine exam (chief complaint)rout ine exam (chief complaint)Eyeg lasses, lost (chief complaint) Regular astigmatismPr esbyopia 4 No Information OFFICE/OUTPA TIENT VISIT, [facility], [id number], [facility] [place], [id number], [place] tel:[phone] Family Medicine F1 Musculoskeleta l pain (chief complaint) Knee painLow back painGERDDepre ssionTobacco AbuseArthropa thyNight sweats 4 No Information [facility], [id number] [facility], [facility] [place], [id number], [place] tel:[phone] Family Medicine F1 Pain in joint involving lower legLumbagoEso phageal refluxDepress jose cruz disorder, not elsewhere classified 4 No Information [facility], [id number] [facility], [facility] [place], [id number], [place] tel:[phone] Family Medicine F1 Pain in joint involving lower legLumbagoEso phageal refluxDepress jose cruz disorder, not elsewhere classified 0-201 4 No Information Family History Family Member Type Diagnosis Age At Onset Mother Problem (finding) depression Mother Problem (finding) Anxiety Mother Problem (finding) Cardiovascular disease Mother Problem (finding) migraine Mother Problem (finding) hypertension Mother Problem (finding) diabetes melli tus in first degree relative Close relative Problem (finding) Cancer, unknown Father Problem (finding) hypercholesterolemia Father Problem (finding) Cardiovascular disease Immunizations Vaccine Date Status Comments Tdap (7 yrs and older) administered Note: No reaction noted while in clinic, pt tolerated well--JI ; Source: New Immunization Record Payers Payer name Insurance type Covered republican ID Tejal ford(s) [facility] [id number] [place] Medicaid [id number] M [place] [employer] MC [id number] Social History Type Description Quantity Date Captured Comments Sex Female Smoking Status No Information Chief Complaint And Reason For Visit No Information Reason For Referral Reason For Referral No Information Plan Of Treatment Date Type Action Status Future Order: Radiology Order Kn ees, Bilateral Standing X-ray - AP Erect of both ([id number]), Ordered on: Ordered Future Order: Radiology Order Lakeisha mbar Spine X-ray, Routine - AP, Lateral, Spot, 3 Views ([id number]), Ordered on: Ordered History Of Present Illness Encounter Date Complaint History Of Prese nt Illness Follow Up of med refill (comment s) Pt has not been seen at in 2 years. 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 She was followed by Dr. Spann (ID at [facility]) and completed IV Vanc and then undrwent tricuspid valve repair. She has not been back in rehab but states she has been sober since that one relapse in November. her who accompanies her today states he watches her take her pain meds so she does not take too many. he was not around when she relapsed because he was incarcerated. possible bladder infection (comm ents) Pt states she was seen in about 10 days ago and given bactrim for a UTI and completed the course of abx but is still having dysuria arthritis (comments) Pt states s he has low back pain as the cause for her need for pain mgmt. She states she had an MRI 3-4 months ago of her low back because of pain that she states runs down her left leg. She also has a h/o bilateral knee pain and xrays doen here 2013 showed mild bilateral OA Follow Up of med refill possible bladder infection arthritis Routine exam routine exam Eyeglasses, lost Musculoskeletal pain (comments) Pt is new to . Her former PCP was Dr. Jones in [place] . she stilllives there but wants to come to for her primary care from now on. She last saw him in 2009 and has been getting her care at and ERs since then.Her PMH is significant for OA both knees , chronic low back pain for which she is on disability , migraines, derpression, s/p MOISES/BSO in 2006 for non cancerous reasons, and night sweats that have worsened in the last few weeks. Pt states she went to the ER yesterday and was diagnosed with bronchitis for her cough and night sweats and was given azithromycin. She states she had a CXr that was negative. She smokes 1/2 ppd for the last 20 years denies any alcohol use. 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 she currently lives in a homeless she;[facility] where she works and goes to school. Musculoskeletal pain Functional Status Date Functional Assessmen t No Information Instructions Date Instruction Additional Infor phyllis - Discussed diagnosi s in detail with patient. OU: New glasses Rx was given today. Discussed diagnosis in detail with patient. OU: New glasses Rx was given today. Related to Presbyopia - 1 1 Related to Presb yopia Assessments Type Assessment Date No Information Patient Care Teams Name Effective Dates (start - stop) Status Members No Information
--- OUTSIDE RECORDS SUMMARY | 2024-12-31 08:30 | XMS_ITS ---
Author Organization [facility] Address [address] [place] [address] Care Team Providers Care Hold Worker Name Role Phone Martine Mancini Primary Care Provider Allison Hughes REASON FOR VISIT Patient needs to establish a urologist, she was told she was in the early stages of kidney failure from the hospital in [place] Encounters Encounter Location Date Provider Diagnosis [facility] [address] [place] [address] [address] [place] [address] 12/31/2024 Allison Hughes Plan Of Treatment No Information Progress Notes * Debby DICKSONDOB: [birth year] (54 yo F)Acc No.[id number]:12/31/2024 Progress Notes Patient: Ruben Debby PABLO Provider: YONI Vega :1970 A ge:54 Y S ex:Female Date:12/31/2024 Address:[address], [id number] Pcp:Martine Mancini Subjective: * Chief Complaints: * 1 . Patient needs to establish a urologist, she was told she was in the early stages of kidney failure from the hospital in [place]. * Medical History: Objective: * Vitals: Assessment: Plan: * Treatment: Forms: Care Plan: * Problems: * Billing Information: * Visit Code: * Procedure Codes: * Electronic signature of YONI Simmons on 05/22/2025 at 04:24 PM CDT Sign off status: Pending * Provider: YONI Vega Date: 12/31/2024 Generated for Daksha naqvi/Krishna/eTransmitting on: 0 05/22/2025 04:24 PM CDT
--- OUTSIDE RECORDS SUMMARY | 2025-05-22 16:24 | XMS_ITS | Patient Health Record ---
Author Organization [facility] Address [address] [place] [address] Care Team Providers Care Tool Sharpener Name Role Phone Martine Mancini Primary Care Provider [phone] RadhaEdin pedro Unavailable [phone] Allison Hughes Unavailable [phone] Allergies Allergen (clinical drug ingredient) Drug/Non Drug Allergy documented on EMR Reaction Allergy Type Onset Date Status Information temporarily unavailable Vioxx leg swelling Drug Allergy Active Reason For Referral No Information Medications Medication SIG (Take, Route, Frequency, Duration) Notes Start Date End Date Status metFORMIN HCl 500 MG 1 tablet with a arnie l Orally bid for 30 day(s) 06/03/2020 Active clonazePAM 1 MG 1 tablet in am and 1 /2 tablet in afternoon, 2 tablets at hs Orally daily Active Lancets - use to test blood glucose once daily for 90 days Dx: E11.59 06/03/2020 Active QUEtiapine Fumarate 100 MG 1 tablet at bedtime Orally Once a day Active Fluconazole 150 MG 1 tablet Orally vivian y for 7 days 06/03/2020 Active Doxycycline Hyclate 100 MG 1 capsule Orally Twice a day for 10 day(s) 06/03/2020 Active Accu-Chek Mindi - use to check blood glucose levels In Vitro once daily for 1 days Dx: E11.59 Active Blood Glucose Test - use to test blood glucose In Vitro once daily for 90 days Dx: E11.59 Active Social History Tobacco Use: Social History Observation Description Date Details (start date - stop date) Current Smoker NA - NA xTobacco Use/Smoking Question Answer Notes Are you a current smoker How often do you smoke cigarettes? every day How many cigarettes a day do you smoke? 6-10 How soon after you wake up do you smoke your fir st cigarette? within 5 minutes Are you interested in quitting? Not ready to adair t Alcohol Screen (Audit-C) Question Answer Notes Did you have a drink containing alcohol in the p ast year? No Points 0 Interpretation Negative Problems Problem Type SNOMED Code ICD Code Onset Dates Problem Status W/U Status Risk Notes Problem 63632245 Other chronic pain (G89.29) Active confirmed Encounters Encounter Location Date Provider Diagnosis [facility] [address] [place] [address] [facility] [address] [place] [address] 12/31/2024 Edin Marquezsay [facility] [address] [place] [address] 12/31/2024 Edin Garcia Plan Of Treatment No Information Insurance Providers Payer Name Payer Address Payer Phone Subscriber Number Group Number Insured Name Patient Relationship to Insured Coverage Start Date Coverage End Date [place] Medicare [address] [address] [place] [address] [id number] Debby Vinson Self - patient is the insured [place] Medicaid [address] [place] [address] [id number] Debby Vinson Self - patient is the insured Medical (General) History Medical History History ICD Code Chronic pain Anxiety Depression Insomnia Hep C Hx of shingles Tricuspid valve replacement Type 2 diabetes Hx of cervical cancer; s/p hysterectomy Surgical History Surgery Date(Month/Year) Biopsy; liver Cholecystectomy Hysterectomy Vaginal reconstruction Bladder sling Hospitalization History Reason Date(Month/Year) Surgeries Child
[2025-05-22 16:32] VITALS: BP 132/80; PULSE 101; RESP 16; TEMP 36.8; O2SAT 96; BMI 41.5
--- NOTE | 2025-05-22 17:17 | ED_ITS ---
HPI - Wound/Laceration General: Chief Complaint: Wound/Laceration Stated Complaint: blisters on legs Time Seen by Provider: 05/22/25 16:56 History of Present Illness: 54-year-old female tobacco smoker with a history of chronic bilateral lower extremity lymphedema, peripheral vascular disease, morbid obesity, diabetes who presents the emergency department complaining of worms crawling out of her skin. Patient states that several weeks ago she let a woman from a homeless [facility] stay with her and her camper. She ended up developing scabies. She had to be treated for it 3 times . Ever since then she suspects that she has had some sort of bugs or parasites on her. She reports a 4 inch warm clot its way through her right earlobe. She reports that a large wiggly warm came out of her anus and fell onto the floor. She says she picked it up and it then wiggled out of her hand into the toilet. She states small worms that are black are coming out of her forehead. She says she cannot see them, however. She has excoriations all over her body from where she has been picking . Patient has a history of staph infection of the skin. She has open venous stasis ulcers around both of her ankles. She is showing me pictures of the eschar that is a grayish-white on top of the ulcers. Today she figured these were parasitic worms and scratched all of the eschar off. She is not on any professional management for her lymphedema. She does report she takes diuresis. She is currently on doxycycline from her primary care doctor for all of the open skin wounds on various different parts of her body from her picking and from the venous ulcers. She reports she convinced her doctor to prescribe her some ivermectin as well. She had does have mupirocin. She says she is taken 3 rounds of permethrin. She also reports that a worm ripped its way out of the skin just above her anus. Related Data Home Medications ?Medication ?Instructions ?Recorded ?Confirmed baclofen 20 mg tablet 20 mg PO TID muscle cramping 11/23/24 04/10/25 Previous Rx's ?Medication ?Instructions ?Recorded large walker with seat #1 ea 12/06/22 Generic glucometer and strips #1 ea 08/21/23 mupirocin calcium 2 % topical cream 1 applic topical T ID #60 grams 01/15/24 pen needle, diabetic 32 gauge x #100 ea 01/22/24 5/32 (Comfort EZ Pen Mcdade) blood-glucose sensor (Dexcom G7 #3 ea 03/04/24 Sensor device) Held on 04/28/25. Instructions: patient needs appointment before refill blood-glucose,regulatory affairs assistant,cont #1 ea 03/04/24 (Dexcom G7 Analyst Competitive Intelligence) Held on 04/28/25. Instructions: patient needs appointment before refill docusate sodium 250 mg capsule 250 mg PO BID #60 caps 06/10/24 lisinopril 10 mg tablet 10 mg PO DAILY high BP/diabe yang 06/10/24 Held on 04/01/25. #90 tabs Instructions: Guidelines potassium chloride 20 mEq 40 meq (2 x 20 mEq) PO BID 0 06/10/24 tablet,extended release replacement potassium #180 t abs bupropion HCl 150 mg tablet,12 hr 150 mg PO QAM depres ciara #30 tabs 06/16/24 sustained-release albuterol sulfate 90 mcg/actuation 1 puff inhalation Q ID PRN 09/11/24 aerosol inhaler shortness of breath or wheez ing #8.5 grams fluticasone propionate 50 2 spray intranasal DAILY PRN nasal 09/11/24 mcg/actuation nasal congestion #16 grams spray,suspension benzonatate 100 mg capsule 100 mg PO TID PRN cough #14 caps 11/23/24 sulfamethoxazole 800 1 tab PO BID 7 days #14 tabs 01/09/25 mg-trimethoprim 160 mg tablet (Bactrim DS) insulin glargine 100 unit/mL (3 45 unit (0.45 mL) SUBC UT .qhs #15 03/01/25 mL) subcutaneous pen (Basaglar mL KwikPen U-100 Insulin) Held on 04/28/25. Instructions: patient needs appointment before refill mupirocin 2 % topical ointment 1 applic topical BID #2 2 grams 03/01/25 (Centany) ondansetron 8 mg disintegrating 8 mg PO Q8H PRN nausea and 03/01/25 tablet vomiting 5 days #15 tabs permethrin 5 % topical cream 1 applic topical .Q 7 day s 2 doses 03/10/25 #180 grams atorvastatin 40 mg tablet 40 mg PO DAILY #30 tabs 02/24 08/19 Held on 04/28/25. Instructions: patient needs appointment before refill mupirocin 2 % topical ointment 1 applic topical BID #2 2 grams 04/10/25 (Centany) permethrin 5 % topical cream 1 applic topical Q14D 2 d oses #120 04/10/25 grams furosemide 40 mg tablet See Rx Instructions .Route 0 04/14/25 Held on 04/28/25. 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 Smoker Encounter for smoking cessation counseling Lymphedema associated with obesity CHF (congestive heart failure) Chronic pain of lower extremity, bilateral Allergic rhinitis due to allergen Bilateral leg cramps Excoriation (skin-picking) disorder Severe generalized edema Scoliosis Insomnia disorder Wellness examination Morbid obesity with BMI of 40.0-44.9, adult Osteoarthritis COPD (chronic obstructive pulmonary disease) Diabetes Depression with anxiety Surgical History History of cholecystectomy History of bilateral tubal ligation History of hysterectomy with bilateral oophorectomy History of bladder repair surgery Family History Father Clotting disorder Bleeding disorder CAD (coronary artery disease) 6 bypass Diabetes Grandfather CAD (coronary artery disease) triple bypass Grandmother Cancer Mother Diabetes Family/Other Diabetes Denies family history of Dementia Chronic kidney disease (CKD) Suicide Anesthesia complication Lung disease Stroke Social History Smoking and tobacco/nicotine status: never used tobacco/nicotine Second hand smoke exposure: Yes Alcohol intake: former Substance/Drug Use: never Adopted: No Caregiver/support person: Yes Lives independently: Yes Household members: spouse Housing: House Marital status: / service: No Current occupational status: disabled Current occupational exposures/hazards: No Pets and animals: No Sexually active: Yes Do you think of yourself as: Straight/Heterosexual Current gender identity: Female Mirella/Scientology: [employer] Special mirella needs: No Agree to transfusion: Yes Female Reproductive History: Spontaneous abortions: No Physical Exam Narrative: EXAM NARRATIVE: Evidence of dermatome of micheal. There are small excoriations in multiple stages of healing's all throughout the body. There is significant bilateral lymphedema with ulcerations around the ankles. Mostly subcutaneous but in some areas small areas of fat is exposed. There is thickening and purpling of the skin around the suggesting chronic nature of the lymphedema. There is a fissure about an inch and a half above the anus without any signs of infection. It is shallow and I can see the base. No signs of parasitosis around the anus. Const: COMMON NORMALS: no limitations, alert and well nourished EXAM LIMITATIONS: no altered mental status HENMT: COMMON NORMALS: normocephalic, atraumatic and external ears normal HEAD & SCALP: normocephalic and atraumatic EXTERNAL EAR: Yes external ears normal MOUTH: no muffled voice Eye: COMMON NORMALS: conjunctivae normal and no scleral icterus CONJUNCTIVA: Yes conjunctivae normal Neck/C-Spine: GENERAL: Yes normal visual inspection and Yes trachea midline Resp: COMMON NORMALS: normal respiratory effort, No use of accessory muscles and clear to auscultation bilaterally AUSCULTATION: clear to auscultation bilaterally GI: COMMON NORMALS: Soft to palpation and non-tender PALPATION: Yes Soft to palpation and No Guarding due to palpation present (GI) Neuro: COMMON NORMALS: moves all extremities, no focal motor deficits and no sensory deficits noted SENSORIUM/ORIENTATION: Yes alert SPEECH: speech normal Psych: OTHER: Anxious Course Vital Signs: Vital signs: Vital Signs Temperature 98.2 F 05/22/25 16:32 Pulse Rate 101 H 05/22/25 16:32 Respiratory Rate 16 05/22/25 16:32 Blood Pressure 132/80 05/22/25 16:32 Pulse Oximetry 96 05/22/25 16:32 MDM - Wound/Laceration Medical Decision Making 1. 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 The history does not strongly support risk factors for parasitosis. Recommend patient form a therapeutic alliance with her primary care doctor. She may benefit from an antipsychotic if CBT and reassurance does not help. 3. Venous stasis ulcers with chronic lymphedema. Referred to wound care. Case management order placed. Recommend elevation, compression stockings, professional wound management for debridement, infection control, moisture balance, and dressings. Can continue Lasix. Does not appear overtly infected but the patient is already on doxycycline. Counseled about tobacco smoking cessation. Doppler utilized to find DP pulses bilaterally. No radiology studies performed this visit Discharge Plan Discharge Patient Disposition: Home Clinical Impression: Venous stasis ulcer of ankle with fat layer exposed without varicose veins, Morbid obesity with BMI of 40.0-44.9, adult, Encounter for smoking cessation counseling, Smoker, PVD (peripheral vascular disease), Perianal fissure, Dermatillomania in adult, Delusions of parasitosis Condition: Stable Prescriptions: No Action mupirocin calcium 2 % cream 1 applic topical TID Qty: 60 2RF docusate sodium 250 mg capsule 250 mg PO BID Qty: 60 5RF lisinopril 10 mg tablet 10 mg PO DAILY Qty: 90 0RF potassium chloride 20 mEq tablet extended release 40 meq PO BID Qty: 180 1RF ondansetron 8 mg tablet,disintegrating 8 mg PO Q8H PRN (Reason: nausea and vomiting) 5 Days Qty: 15 0RF mupirocin [Centany] 2 % ointment 1 applic topical BID Qty: 22 0RF mupirocin [Centany] 2 % ointment 1 applic topical BID Qty: 22 2RF permethrin 5 % cream 1 applic topical Q14D Qty: 120 2RF Rx Instructions: apply second treatment 14 days after first treatment, leave on 8 hours and wash off (DME) Dexcom G7 Analyst Competitive Intelligence Misc See Rx Instructions .Route Qty: 1 0RF Rx Instructions: As directed (DME) Dexcom G7 Sensor Device See Rx Instructions .Route Qty: 3 1RF Rx Instructions: As directed bupropion HCl 150 mg tablet sustained-release 12 hr 150 mg PO QAM Qty: 30 2RF fluticasone propionate 50 mcg/actuation spray,suspension 2 spray intranasal DAILY PRN (Reason: nasal congestion) Qty: 16 0RF albuterol sulfate 90 mcg/actuation HFA aerosol inhaler 1 puff inhalation QID PRN (Reason: shortness of breath or wheezing) Qty: 8.5 0RF sulfamethoxazole-trimethoprim [Bactrim DS] 800-160 mg tablet 1 tab PO BID 7 Days Qty: 14 0RF permethrin 5 % cream 1 applic topical .Q 7 days Qty: 180 0RF Rx Instructions: apply second treatment 14 days after first treatment if live lice remain (DME) large walker with seat See Rx Instructions .Route .MEDSUPPLY Qty: 1 0RF Rx Instructions: If not there to medical equipment (DME) Generic glucometer and strips See Rx Instructions .Route .MEDSUPPLY Qty: 1 0RF Rx Instructions: As directed (DME) pen needle, diabetic [Comfort EZ Pen Mcdade] 32 gauge x 5/32 needle See Rx Instructions .Route Qty: 100 2RF Rx Instructions: Check BS three times a day. insulin glargine [Basaglar KwikPen U-100 Insulin] 100 unit/mL (3 mL) insulin pen 45 unit SUBCUT .qhs Qty: 15 5RF atorvastatin 40 mg tablet 40 mg PO DAILY Qty: 30 3RF Rx Instructions: Take 1 tablet by mouth once daily furosemide 40 mg tablet See Rx Instructions .ROUTE .COMPLEX Qty: 60 0RF Dose Instruction: TAKE 2 TABLETS BY MOUTH TWICE DAILY NEEDED FOR BLOOD PRESSURE AND EDEMA Rx Instructions: TAKE 2 TABLETS BY MOUTH TWICE DAILY NEEDED FOR BLOOD PRESSURE AND EDEMA baclofen 20 mg tablet 20 mg PO TID benzonatate 100 mg capsule 100 mg PO TID PRN (Reason: cough) Qty: 14 0RF Rx Instructions: Can take 1-2 tabs up to TID. Max 600mg/day. ivermectin 6 mg tablet 24 mg PO DAILY Qty: 8 0RF Rx Instructions: Take doses 1 week apart doxycycline hyclate 100 mg capsule 100 mg PO BID 14 Days Qty: 28 0RF Discharge Orders: Discharge ED (Routine); Ordered 05/22/25 Ordered By: Mark Avalos Patient Instructions: Patient Portal & Regino Instructions Activity Restrictions/Additional Instructions: Please make a follow-up appointment with your primary care doctor in the next 7 to 10 days. Diagnosis and Treatment Overview Dermatillomania (Skin-Picking Disorder): Dermatillomania, also called skin-picking disorder, is a condition where a person feels a strong urge to pick at their skin, often leading to sores, scabs, or scars. It is considered a type of obsessive-compulsive disorder. Diagnosis is based on repeated skin picking that causes noticeable skin damage and distress, and is not due to another medical or skin condition. Treatment usually involves behavioral therapy, especially cognitive-behavioral therapy (CBT) and habit- reversal training. Medications such as selective serotonin reuptake inhibitors (SSRIs) or N-acetylcysteine may be helpful in some cases. Protecting the skin and caring for wounds is important to prevent infection.[1] https://jamanetwork.com/journals/jamadermatology/fullarticle/10.1001/jamadermato l.2020.0394?utm_source=openevidence&utm_medium=referral [2] https://pubmed.ncbi.nlm.nih.gov/79343789 [3] https://pubmed.ncbi.nlm.nih.gov/26778476 Delusional Parasitosis: Delusional parasitosis is a psychiatric condition where a person is convinced th ey are infested with parasites, even though no evidence of infestation is found. Diagnosis involves ruling out real infections or other medical causes. Building a trusting relationship is acevedo, as patients often resist psychiatric explanations. The main treatment is antipsychotic medication, especially newer (second-generation) antipsychotics, which can help reduce symptoms. Supportive care, reassurance, and sometimes involving family or friends are also important. The Centers for Disease Control and Prevention (CDC) recommends a careful, stepwise approach, including basic lab tests and symptom management, while avoiding confrontation about the belief itself.[4] https://pubmed.ncbi.nlm.nih.gov/65686470 [5] https://wwwnc.cdc.gov/travel/yellowbook/2023/posttravel-evaluation/delusional- parasitosis Venous Stasis Ulcers with Chronic Lymphedema: Venous stasis ulcers are wounds on the lower legs caused by poor blood flow in the veins, often made worse by chronic lymphedema (swelling due to lymphatic fluid buildup). Diagnosis is based on the appearance of the ulcer, history of leg swelling, and sometimes tests to check blood flow. The [place] Ven[employer] Forum and related societies recommend compression therapy as the main treatment?using special bandages or stockings to help move fluid out of the leg and promote healing. Manual lymphatic drainage (a gentle massage technique), exercise, and good skin care are also important. Wound care may include dressings, antibiotics if infection is present, and sometimes referral to a mission support specialist. Early and consistent treatment helps prevent complications and improves healing.[6] https://pubmed.ncbi.nlm.nih.gov/75455909 [7] https://pubmed.ncbi.nlm.nih.gov/63279828 [8] https://pubmed. ncbi.nlm.nih.gov/13645663 [9] https://pubmed.ncbi.nlm.nih.gov/85722847 [10] https://www.nejm.org/doi/full/10.1056/PCIUhc4239210 [11] https://pubmed.ncbi.nlm.nih.gov/93655031 [12] https://pubmed.ncbi. lm.nih.gov/11803525 If you have any of these conditions, a team approach involving dermatologists, mental health professionals, and wound care specialists may be recommended to provide the best care.[1] https://jamanetwork.com/journals/jamadermatology/fullarticle/10.1001/jamadermato l.2020.0394?utm_source=openevidence&utm_medium=referral Print Language: Marshallese Coding Level of Care Code ED Dramatic Teacher for Serg Mckee
[2025-05-22 17:42] VITALS: BP 163/97; PULSE 89; RESP 16; O2SAT 97
--- NOTE | 2025-05-22 18:29 | PC.NURSE ---
Patient's daughter called lighthouse keeper to file a complaint about her mother's care. Daughter states her mother was looked and discharged with no labs being drawn, and was put on no medications. Daughter is concerned that patient will develop sepsis or lose her legs . Daughter also sent photographs of her mother's legs to the lighthouse keeper cell phone number. Daughter said she would be instructing her mother to drive to [facility] in [place], [place]. telephone information supervisor/advertising copywriter let the daughter know that her complaint would be passed on to administration.
--- NOTE | 2025-05-24 07:40 | DCPLANNER ---
messaged wound care for er f/u
== END 2025-05-22 17:43 | disposition home or self-care (01) ==
PROVIDERS: Emergency Provider Emergency Medicine
DX: I83.013 Varicose veins of right lower extremity with ulcer of ankle (principal); I83.023 Varicose veins of left lower extremity with ulcer of ankle; L97.312 Non-pressure chronic ulcer of right ankle with fat layer exposed; L97.322 Non-pressure chronic ulcer of left ankle with fat layer exposed; E66.01 Morbid (severe) obesity due to excess calories; Z68.42 Body mass index [BMI] 45.0-49.9, adult; F17.210 Nicotine dependence, cigarettes, uncomplicated; Z71.6 Tobacco abuse counseling; I73.9 Peripheral vascular disease, unspecified; K60.2 Anal fissure, unspecified; F42.4 Excoriation (skin-picking) disorder; F22 Delusional disorders; Z79.4 Long term (current) use of insulin; J44.9 Chronic obstructive pulmonary disease, unspecified; E11.9 Type 2 diabetes mellitus without complications; I50.9 Heart failure, unspecified
CPT/HCPCS: 99282

== ENCOUNTER → 2025-06-07 13:08 | Outpatient (BNVA) | payer MEDICARE, MEDICAID, SELFPAY | PROVIDERS: Visit Provider Thoracic Surgery (Cardiothoracic Vascular Surgery) | DX: I96 Gangrene, not elsewhere classified (principal); I87.2 Venous insufficiency (chronic) (peripheral); L97.811 Non-pressure chronic ulcer of other part of right lower leg limited to breakdown of skin; L97.821 Non-pressure chronic ulcer of other part of left lower leg limited to breakdown of skin | CPT/HCPCS: 97597; 97598; 99205 ==

== ENCOUNTER → 2025-06-09 14:04 | Outpatient (BNVA) | payer MEDICARE, MEDICAID, SELFPAY | PROVIDERS: Visit Provider Thoracic Surgery (Cardiothoracic Vascular Surgery) | DX: I96 Gangrene, not elsewhere classified (principal); I87.2 Venous insufficiency (chronic) (peripheral); L97.811 Non-pressure chronic ulcer of other part of right lower leg limited to breakdown of skin; L97.821 Non-pressure chronic ulcer of other part of left lower leg limited to breakdown of skin | CPT/HCPCS: 29581; A6253 ==

== ENCOUNTER → 2025-06-15 15:04 | Outpatient (BNVA) | payer MEDICARE, MEDICAID, SELFPAY | PROVIDERS: Visit Provider Thoracic Surgery (Cardiothoracic Vascular Surgery) | DX: I96 Gangrene, not elsewhere classified (principal); I87.2 Venous insufficiency (chronic) (peripheral); L97.811 Non-pressure chronic ulcer of other part of right lower leg limited to breakdown of skin; L97.821 Non-pressure chronic ulcer of other part of left lower leg limited to breakdown of skin | CPT/HCPCS: 29581; 97597; 97598; A6252 ==

== ENCOUNTER → 2025-06-25 09:12 | Outpatient (BNVA) | payer MEDICARE, MEDICAID, SELFPAY | PROVIDERS: Visit Provider Thoracic Surgery (Cardiothoracic Vascular Surgery) | DX: I96 Gangrene, not elsewhere classified (principal); I87.2 Venous insufficiency (chronic) (peripheral); L97.811 Non-pressure chronic ulcer of other part of right lower leg limited to breakdown of skin; L97.821 Non-pressure chronic ulcer of other part of left lower leg limited to breakdown of skin | CPT/HCPCS: 97597; 97598; A6252 ==

== ENCOUNTER → 2025-06-29 08:57 | Outpatient (BNVA) | payer MEDICARE, MEDICAID, SELFPAY | PROVIDERS: Visit Provider Thoracic Surgery (Cardiothoracic Vascular Surgery) | DX: I96 Gangrene, not elsewhere classified (principal); I87.2 Venous insufficiency (chronic) (peripheral); L97.811 Non-pressure chronic ulcer of other part of right lower leg limited to breakdown of skin; L97.821 Non-pressure chronic ulcer of other part of left lower leg limited to breakdown of skin | CPT/HCPCS: 97597; 97598 ==

== ENCOUNTER → 2025-07-06 09:13 | Outpatient (BNVA) | payer MEDICARE, MEDICAID, SELFPAY | PROVIDERS: Visit Provider Thoracic Surgery (Cardiothoracic Vascular Surgery) | DX: I96 Gangrene, not elsewhere classified (principal); I87.2 Venous insufficiency (chronic) (peripheral); L97.811 Non-pressure chronic ulcer of other part of right lower leg limited to breakdown of skin; L97.821 Non-pressure chronic ulcer of other part of left lower leg limited to breakdown of skin | CPT/HCPCS: 97597; 97598; A6252 ==

== ENCOUNTER 2025-07-07 14:31 | Inpatient (IN) | payer OTHER, MEDICAID, SELFPAY ==
[2025-07-07] VITALS (12 sets, daily range): BP systolic 101–162; BP diastolic 59–89; PULSE 83–97; RESP 14–22; TEMP 36.7; O2SAT 92–99
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
--- NOTE | 2025-07-07 15:08 | ECG_ITS ---
[facility]: 2025-[facility]-07 Pat Name: Debby Vinson Department: Room: Gender: Female Rn Cvicu: : 1970 Requested By: Taco Williamson Order Number: [id number] Reading MD: Measurements Intervals [place] Rate: 88 P: 58 KS: 147 QRS: -6 QRSD: 93 T: 153 QT: 378 QTc: 458 Interpretive Statements SINUS RHYTHM WITH OCCASIONAL SUPRAVENTRICULAR PREMATURE COMPLEXES POSSIBLE LEFT ATRIAL ENLARGEMENT [-0.1mV P-WAVE IN V1/V2] NONSPECIFIC T-WAVE ABNORMALITY No previous ECG available for comparison [id number]
--- NOTE | 2025-07-07 15:23 | XR_ITS ---
WS: [id number] Portable AP upright chest, 07/07/2025 Clinical Data: dyspnea Comparison: Portable chest, 04/25/2025 Findings: No nodules, masses or effusions are seen. The heart is normal. The pulmonary vascularity is not increased. No pneumonia or pneumothorax is seen. The patient has a poor inspiratory effort. Midline sternotomy sutures are present. The aortic arch shows mild tortuosity. XR/XR chest 1V portable [id number] Impression: Atherosclerosis.
--- NOTE | 2025-07-07 15:58 | PC.PHAR ---
Spoke to Kathy Araiza, and Alta Nava , and Patient does not have any pain medications on file and Kathy also checked the PDMO for me adn has not filled any in the state of [place] . All fill dates were verified with all three pharmacies.
[2025-07-07 16:01] LABS: Hematocrit 36.5 % (36-47); Hemoglobin 11.10 g/dL (11.27-16.99); Mean Corpuscular HGB Conc 30.4 g/dL (30-55); Mean Corpuscular Hemoglobin 23.8 pg (27-33); Mean Corpuscular Volume 78.2 fl (85-98); Nucleated Red Blood Cells % 0 %; Platelet Count 213 10^3/cmm (157-399); Red Blood Count 4.67 10^6/uL (3.85-5.65); White Blood Count 9.07 10^3/uL (3.29-11.43)
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
[2025-07-07 16:25] LABS: HCG, Serum Qual Negative (Negative)
[2025-07-07 16:26] LABS: Alanine Aminotransferase 27 U/L (0-33); Albumin Level 3.7 g/dL (3.5-5.2); Alkaline Phosphatase 125 U/L (35-105); Anion Gap 17.0 (5-19); Aspartate Amino Transferase 24 U/L (0-32); Blood Urea Nitrogen 16 mg/dL (6-20); Calcium 8.9 mg/dL (8.5-10.5); Carbon Dioxide 25 mmol/L (22-29); Chloride 101 mmol/L (98-107); Globulin 3.8 g/dL (1.3-4.6); Glucose 229 mg/dL (65-115); Osmolality Calculated 298 mOsm/kg (285-295); Potassium 3.0 mmol/L (3.5-5.1); Sodium 140 mmol/L (136-145); Total Protein 7.5 g/dL (6.6-8.7)
[2025-07-07 16:28] LABS: Acetaminophen < 5.0 ug/mL (10-30); Alcohol Level < 10 mg/dL (0-10); Salicylate < 0.3 mg/dL (3-10)
[2025-07-07 16:29] LABS: PCP Screen Urine Negative (Negative)
--- NOTE | 2025-07-07 16:45 | CTR_ITS ---
PROCEDURE INFORMATION: Exam: CT Head Without Contrast Exam date and time: 07/07/2025 5:21 PM Age: 54 years old Clinical indication: Altered mental status/memory loss and coma or unconsciousness; Additional info: AMS TECHNIQUE: Imaging protocol: Computed tomography of the head without contrast. Radiation optimization: All CT scans at this facility use at least one of these dose optimization techniques: automated exposure control; mA and/or kV adjustment per patient size (includes targeted exams where dose is matched to clinical indication); or iterative reconstruction. COMPARISON: CT head wo con* [id number] 07/28/2022 11:53 AM RADIATION DOSE METRICS: Total DLP (mGy-cm): 1138.28 FINDINGS: Brain: Normal. No hemorrhage. Unremarkable white matter. No mass effect. Cerebral ventricles: No ventriculomegaly. Paranasal sinuses: Visualized sinuses are unremarkable. No fluid levels. Mastoid air cells: Visualized mastoid air cells are well aerated. Bones: Unremarkable. No acute fracture. Soft tissues: Unremarkable. CT/CT head wo con* [id number] IMPRESSION: No acute intracranial abnormality.
[2025-07-07 18:46] LABS: ABG PCO2 51.5 mmHg (35-45); ABG PH Result 7.37 (7.35-7.45); Alveolar-Arterial Oxygen Gradi 0.3 mmHg (5-10); Arterial Blood Gas Hematocrit 34.8 % (37-47); Blood Gas Allen Test Pos; Blood Gas LPM 4.0 %; Blood Gas Operator Identificat WALCI; Blood Gas Sample Site Radial, left; Blood Gas Sample Type Arterial; Carboxyhemoglobin 1.6 %THgb (0.4-20.1); Glucose Level-ABG 188.0 mg/dL (70-115); HCO3 ABG 29.5 mmol/L (22-26); Ionized Calcium Level - ABG 1.2 mmol/L (1.1-1.4); Methemoglobin 1.0 % (0.4-1.5); Oxygen Saturation ABG 95.7; PO2 ABG 83.7 mmHg (80.0-100.0); Potassium Level - ABG 3.6 mmol/L (3.5-5.0); Sodium Level - ABG 142.0 mmol/L (131-143)
[2025-07-07] MEDS: potassium chloride premix 100 ML 50 MEQ IV (19:45)
[2025-07-07 20:46] LABS: ABG PCO2 49.8 mmHg (35-45); ABG PH Result 7.38 (7.35-7.45); Alveolar-Arterial Oxygen Gradi 2.7 mmHg (5-10); Arterial Blood Gas Hematocrit 36.6 % (37-47); Blood Gas Allen Test Pos; Blood Gas LPM 4.0 %; Blood Gas Operator Identificat SAM; Blood Gas Sample Site Radial, right; Blood Gas Sample Type Arterial; Carboxyhemoglobin 1.6 %THgb (0.4-20.1); Glucose Level-ABG 194.0 mg/dL (70-115); HCO3 ABG 29.7 mmol/L (22-26); Ionized Calcium Level - ABG 1.2 mmol/L (1.1-1.4); Methemoglobin 0.0 % (0.4-1.5); Oxygen Saturation ABG 91.2; PO2 ABG 67.7 mmHg (80.0-100.0); Potassium Level - ABG 3.8 mmol/L (3.5-5.0); Sodium Level - ABG 143.0 mmol/L (131-143)
--- NOTE | 2025-07-07 21:14 | PM.HP ---
Providers/Chief Complaint Admitting Physician: Lance Cole MD Chief Complaint: SI History of Present Illness Debby Vinson is a 54 year old female comes in after a friend of hers dosed her with Narcan. Friend had been concerned that patient was not breathing well patient and thought she was suicidal. Patient came in with opiate withdrawal after Narcan and stated she had not overdosed and was not suicidal. She reported nausea and diffuse myalgias from Narcan. She was requesting more pain medication but ER doctor declined concerned that she might become hypersomnolent again. ABG was done showing mild CO2 retention and patient did become somnolent again. She is stable on nasal cannula O2 on continuous oxygen monitoring. Review of Systems Narrative: Unobtainable Medications/Allergies Home Medications ?Medication ?Instructions ?Recorded ?Confirmed ?Last Taken ?Type large walker with seat #1 ea 12/06/22 07/07/25 Unknown Rx Generic glucometer and strips #1 ea 08/21/23 07/07/25 Unknown Rx blood-glucose sensor (Dexcom G7 #3 ea 03/04/24 07/07/25 Unknown Rx Sensor device) Held on 04/28/25. Instructions: patient needs appointment before refill blood-glucose,steel division supervisor,cont #1 ea 03/04/24 07/07/25 Unknown Rx (Dexcom G7 Government Property Inspector) Held on 04/28/25. Instructions: patient needs appointment before refill bupropion HCl 150 mg tablet,12 hr 150 mg PO QAM depression #30 tabs 06/16/24 07/07/25 11/22/24 Rx sustained-release albuterol sulfate 90 mcg/actuation 1 puff inhalation QID PRN 09/11/24 07/07/25 Unknown Rx aerosol inhaler shortness of breath or wheezing #8.5 grams mupirocin 2 % topical ointment 1 applic topical BID #22 grams 04/10/25 07/07/25 Unknown Rx (Centany) permethrin 5 % topical cream 1 applic topical Q14D 2 doses #120 04/10/25 07/07/25 Unknown Rx grams atorvastatin 40 mg tablet See Rx Instructions .Route 06/21/25 07/07/25 Unknown Rx .COMPLEX #90 tabs pen needle, diabetic 32 gauge x #100 ea 06/21/25 07/07/25 Unknown Rx 5/32 (Comfort EZ Pen [place]) insulin glargine 100 unit/mL (3 45 unit (0.45 mL) SUBCUT DAILY #15 06/23/25 07/07/25 Unknown Rx mL) subcutaneous pen (Lantus mL Solostar U-100 Insulin) insulin aspart U-100 100 unit/mL 12 unit (0.12 mL) SUBCUT TID #15 mL 07/01/25 07/07/25 Unknown Rx (3 mL) subcutaneous pen (Novolog FlexPen U-100 Insulin aspart) furosemide 40 mg tablet 40 mg PO QID 07/07/25 07/07/25 Unknown History Allergies Allergy/AdvReac Type Severity Reaction Status Date / Time rofecoxib (From Vioxx) Allergy Intermediate Unknown Verified 04/10/25 18:49 amitriptyline AdvReac Severe Sleep Verified 04/10/25 18:49 walking/falls PFSH Acute PFSH: Medical History (Updated 07/07/25 @ 21:18 by Jacob Burnham MD) 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 Smoker Encounter for smoking cessation counseling Lymphedema associated with obesity CHF (congestive heart failure) Chronic pain of lower extremity, bilateral Allergic rhinitis due to allergen Bilateral leg cramps Excoriation (skin-picking) disorder Severe generalized edema Scoliosis Insomnia disorder Wellness examination Morbid obesity with BMI of 40.0-44.9, adult Osteoarthritis COPD (chronic obstructive pulmonary disease) Diabetes Depression with anxiety Surgical History History of cholecystectomy History of bilateral tubal ligation History of hysterectomy with bilateral oophorectomy History of bladder repair surgery Family History Father Clotting disorder Bleeding disorder CAD (coronary artery disease) 6 bypass Diabetes Grandfather CAD (coronary artery disease) triple bypass Grandmother Cancer Mother Diabetes Family/Other Diabetes Denies family history of Dementia Chronic kidney disease (CKD) Suicide Anesthesia complication Lung disease Stroke Social History Smoking and tobacco/nicotine status: never used tobacco/nicotine Second hand smoke exposure: Yes Alcohol intake: former Substance/Drug Use: never Adopted: No Caregiver/support person: Yes Lives independently: Yes Household members: spouse Housing: House Marital status: / service: No Current occupational status: disabled Current occupational exposures/hazards: No Pets and animals: No Sexually active: Yes Do you think of yourself as: Straight/Heterosexual Current gender identity: Female Mirella/Zoroastrianism: Jainism Special mirella needs: No Agree to transfusion: Yes Female Reproductive History: Spontaneous abortions: No Vitals/I&O/Wt Last Vital Signs Temp 98.0 F 07/07/25 18:35 Pulse 96 07/07/25 20:47 Resp 14 07/07/25 20:47 BP 118/66 07/07/25 20:47 Pulse Ox 99 07/07/25 20:47 O2 Del Method Nasal Cannula 07/07/25 20:47 O2 Flow Rate 4 07/07/25 20:47 07/07/25 07/07/25 07/07/25 06:59 14:59 22:59 Intake Total 500 / 500 Balance 500 / 500 Physical Exam Narrative: General well-developed well-nourished obese female in no acute cardiopulmonary stress occasional sonorous breathing but otherwise just regular breathing CV regular rate and rhythm Lungs good air movement mildly diminished in the bases no upper airway stridor Oropharynx she opens her mouth weakly cannot check a good Mallampati score Pupils equally round and reactive at 4 mm Abdomen positive bowel tones soft nontender Calves there and compression dressings but equal and dressings are loose Data 07/07/25 15:53 07/07/25 15:53 A&P Assessment and plan 1. Opiate overdose: Patient received Narcan and then became somnolent again. She will be monitored in CSU on continuous telemetry and oximetry 2. Methamphetamine abuse: Drug screen positive not agitated 3. Obstructive sleep apnea: Patient denied sleep apnea. She stated she is in [place] then went back to sleep. ABG shows pH 7.38 pCO2 49 PO2 67 O2 at 2 L to keep sats greater than 90%. If unstable start CPAP 4. Lymphedema associated with obesity: Dressings on legs are loose and no signs of infection or soiling 5. Morbid obesity with BMI of 40.0-44.9, adult: When awake will start weight loss diet. She also is diabetic so 1500-calorie ADA diet 6. Diabetes: Start sliding scale insulin and will give 30 units daily Lantus starting in the morning. I think the patient has had her home dose this morning PDMP PDMP Reviewed: Not Reviewed Attestations Medical Necessity Statement*: Patient admitted to observation in CSU with opiate overdose history of sleep apnea and diabetes will need to be monitored closely but anticipate she will be improved and ready for discharge in less than 2 midnights Coding Level of Care Code 05241 Diagnoses Opiate overdose T40.601A Methamphetamine abuse F15.10 Obstructive sleep apnea G47.33 Lymphedema associated with obesity I89.0; E66.9 Morbid obesity with BMI of 40.0-44.9, adult E66.01; Z68.41 Diabetes E11.9 Time Spent (min) 55
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
[2025-07-07] MEDS: sodium chlor 0.9% + KCl 20 mEq 20 MEQ/1,000 ML BAG 100 MEQ IV (22:47)
--- OUTSIDE RECORDS SUMMARY | 2025-07-07 23:34 | XMS_ITS | Clinical Summary ---
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 Gender Identity Not on file Sexual Orientation [...] Consistent w Count 05/22/2025 10:05 PM CDT [facility] RBC MORPHOLOGY Normal 05/22/2025 10:05 PM CDT [facility] Blood BLOOD SPECIMEN / Unknown Collection / Unknown 05/22/2025 9:48 PM CDT 05/22/2025 9:52 PM CDT us Russel Taylor MD HEMATOLOGY ORDERABLES COM Final Result [facility] CLIA # [id number] [address] [address] * (ABNORMAL) CBC WITH DIFFERENTIAL (05/22/2025 9:48 PM T) WBC 8.7 4.0 - 10.0 K/uL 05/22/2025 10:05 PM [facility] RBC 4.92 3.93 - 5.22 M/uL 05/22/2025 10:05 PM [facility] HEMOGLOBIN 12.0 11.2 - 15.7 g/dL 05/22/2025 10:05 PM [facility] HEMATOCRIT 38.6 34.1 - 44.9 % 05/22/2025 10:05 PM [facility] MCV 78.5(L) 79.4 - 94.8 fL 05/22/2025 10:05 PM [facility] MCH 24.4(L) 25.6 - 32.2 pg 05/22/2025 10:05 PM [facility] MCHC 31.1(L) 32.2 - 35.5 g/dL 05/22/2025 10:05 PM [facility] RDW 15.9(H) 11.0 - 14.5 % 05/22/2025 10:05 PM [facility] RDW-STDEV 45.1 36.9 - 56.9 fL 05/22/2025 10:05 PM [facility] PLATELETS 229 163 - 337 K/uL 05/22/2025 10:05 PM [facility] MPV 8.8(L) 10.0 - 14.8 fL 05/22/2025 10:05 PM [facility] NEUTROPHILS 53 34 - 71 % 05/22/2025 10:05 PM [facility] LYMPHOCYTES 36 19 - 52 % 05/22/2025 10:05 PM [facility] MONOCYTES 9 5 - 13 % 05/22/2025 10:05 PM [facility] EOSINOPHILS 1 1 - 6 % 05/22/2025 10:05 PM [facility] BASOPHILS 1 0 - 1 % 05/22/2025 10:05 PM [facility] IMMATURE GRANULOCYTES 0 % 05/22/2025 10:05 PM CDT [facility] NEUTROPHIL ABSOLUTE 4.62 1.56 - 6.13 K/uL 05/22/2025 10:05 PM T [facility] LYMPHOCYTE ABSOLUTE 3.14 1.20 - 3.40 K/uL 05/22/2025 10:05 PM T [facility] MONOCYTE ABSOLUTE 0.78(H) 0.24 - 0.36 K/uL 05/22/2025 10:05 PM T [facility] EOSINOPHIL ABSOLUTE 0.12 0.04 - 0.36 K/uL 05/22/2025 10:05 PM [facility] BASOPHILS ABSOLUTE 0.05 0.01 - 0.08 K/uL 05/22/2025 10:05 PM [facility] IMMATURE GRANULOCYTES ABSOLUTE 0.03 K/uL 05/22/2025 10:05 PM [facility] Blood BLOOD SPECIMEN / Unknown Collection / Unknown 05/22/2025 9:48 PM CDT 05/22/2025 9:52 PM CDT us Russel Taylor MD HEMATOLOGY ORDERABLES Final Result [facility] CLIA # [id number] [address] [place] [address] * (ABNORMAL) COMPREHENSIVE METABOLIC PANEL (05/22/2025 9:48 PM CDT) SODIUM 135(L) 136 - 145 mmol/L 05/22/2025 10:14 PM CDT [facility] POTASSIUM 4.0 3.5 - 5.1 mmol/L 05/22/2025 10:14 PM [facility] CHLORIDE 96(L) 98 - 107 mmol/L 05/22/2025 10:14 PM T [facility] CO2 27 22 - 29 mmol/L 05/22/2025 10:14 PM T [facility] CALCIUM 10.1(H) 8.6 - 10.0 mg/dL 05/22/2025 10:14 PM [facility] BUN 14 6 - 20 mg/dL 05/22/2025 10:14 PM [facility] CREATININE 0.72 0.51 - 0.95 mg/dL 05/22/2025 10:14 PM [facility] GLUCOSE 348(H) 74 - 99 mg/dL 05/22/2025 10:14 PM [facility] TOTAL PROTEIN 7.3 6.6 - 8.7 g/dL 05/22/2025 10:14 PM [facility] ALBUMIN 3.6 3.5 - 5.2 g/dL 05/22/2025 10:14 PM [facility] BILIRUBIN TOTAL 0.2 0.0 - 1.2 mg/dL 05/22/2025 10:14 PM [facility] ALKALINE PHOSPHATASE 126(H) 35 - 104 U/L 05/22/2025 10:14 PM [facility] AST 19 0 - 35 U/L 05/22/2025 10:14 PM [facility] ALT 18 0 - 35 U/L 05/22/2025 10:14 PM [facility] GFR >60 >=60 mL/min/1.7 3 sq meter 05/22/2025 10:14 PM [facility] Comment:eGFR calculated with 2020 CKD-EPI equation. Vegetarian diet, extremely high or low muscle mass, and may affect results. Cystatin C with Glomerular Filtration Rate is a suitable alternative for these patients. ANION GAP 12 5 - 20 mmol/L 05/22/2025 10:14 PM [facility] Blood BLOOD SPECIMEN / Unknown Collection / Unknown 05/22/2025 9:48 PM CDT 05/22/2025 9:52 PM CDT us Russel Taylor MD CHEMISTRY ORDERABLES Final Result [facility] CLIA # [id number] [address] [place] [phone] from Last 3 Months Insurance MEDICAID [place] [address] [address] DUAL COMPLETE O [facility] [id number] Care Teams Tree Planter Relationship Specialty Start Date End Date Anthony Kwon MD [address] [place] [address] [address] [place] [address] PCP - General Family Practice 04/16/23
[2025-07-08] VITALS (7 sets, daily range): BP systolic 87–131; BP diastolic 57–78; PULSE 76–89; RESP 14–18; TEMP 36.5–37.1; O2SAT 89–96
[2025-07-08 03:31] LABS: Blood Urea Nitrogen 13 mg/dL (6-20); Calcium 8.2 mg/dL (8.5-10.5); Carbon Dioxide 25 mmol/L (22-29); Chloride 104 mmol/L (98-107); Creatinine Clr Calc Pharmacy 118.6280; Glucose 194 mg/dL (65-115); Osmolality Calculated 293 mOsm/kg (285-295); Sodium 139 mmol/L (136-145)
[2025-07-08 03:35] LABS: Anion Gap 14.3 (5-19); Potassium 4.3 mmol/L (3.5-5.1)
--- NOTE | 2025-07-08 09:54 | PC.CHAP ---
Pastoral Care Encounter/Spiritual Assessment Type of Contact [] Declined mailroom associate visit [] Patient/Family/Request visit [] Outpatient visit [] Follow-up visit [] Physician referral [] Code/Alert [] Routine visit [] Staff referral [] Actively dying [x] Patient sleeping [] Family support [] [] Out of room [] Palliative care [] [] Receiving care in room [] Pre-surgical visit [] Trauma [] Long length of stay [] ICU visit [] Other: Relational/Emotional Strength [] Patient feels connected with others/family/visitors/staff [] Distress [] Loneliness/isolation [] Abandonment Spirituality of Patient [] Person of Mirella [] Attends Mormon of their Mirella [] Believes in Prayer [] Reads Bible or Samaritan materials [] There are Spiritual issues to be addressed Psychology Professor Interventions [] Prayer [] Active listening [] Non-anxious presence [] Spiritual/emotional support [] Crisis/trauma care [] Spiritual counseling [] Bereavement support [] Provided bereavement packet [] Provided Bible/devotional materials [] Provided toy/stuffed animal, coloring book to patient or family member [] Provided Communion [] Anointing/[place] [] Salvation [] Completed spiritual assessment [] Other: Impact on Illness or Injury [] Angry [] Fearful [] Anxious [] Often cries [] Exhaustion [] Unable to work [] Unable to attend buddhist [] Unable to walk/stand [] Unable to read [] Unable to drive [] Unable to eat/drink [] Unable to sleep [] Unable to be with family [] Patient intubated [] Other: Summary Time spent with patient
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
--- NOTE | 2025-07-08 12:19 | USCV_ITS ---
Debby Vinson Age: 54 Gender: F : 1970 Exam Date: 07/08/2025 14:45 Ordering Phys: Tyler Rosas MD Technologist: ZAK Exam Location: [facility] Indication: Swelling HISTORY: Lower extremity swelling. PROCEDURES: Venous duplex imaging was performed in bilateral lower extremities. The following venous structures were evaluated: common femoral vein, profunda vein, proximal portion of the greater saphenous vein, superficial femoral vein, and the popliteal vein. In addition, the posterior tibial and peroneal trunk were evaluated. Serial compression, augmentation maneuvers, and spectral Doppler flow evaluation were performed. FINDINGS: No evidence of DVT seen in any vessel visualized at this time. CONCLUSIONS No evidence of right lower extremity DVT. No evidence of left lower extremity DVT. Jacob Oscar MD (Electronically Signed) Final Date: 08 July 2025 16:50 S
[2025-07-08] MEDS: cefTRIAXone 1,000 mg SDV 1000 MG IVP (13:09)
[2025-07-08] MEDS: FUROsemide 10 mg/mL SDV 4mL 40 MG IVP (13:09)
[2025-07-08 13:12] LABS: NT Pro B Type Natriuretic Pept 394 pg/mL (0-125)
[2025-07-08 13:16] LABS: Hepatitis A Antibody IgM Non-Reactive (Nonreactive); Hepatitis B Surface Antigen Non-Reactive (Nonreactive)
[2025-07-08 13:40] LABS: HIV 1 & 2 Antigen Non-Reactive (Non-Reactiv)
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
[2025-07-09] VITALS (8 sets, daily range): BP systolic 101–125; BP diastolic 64–76; PULSE 67–87; RESP 13–25; TEMP 36.4–36.9; O2SAT 90–95
[2025-07-09 03:04] LABS: Hematocrit 37.2 % (36-47); Hemoglobin 11.00 g/dL (11.27-16.99); Mean Corpuscular HGB Conc 29.6 g/dL (30-55); Mean Corpuscular Hemoglobin 24.6 pg (27-33); Mean Corpuscular Volume 83.2 fl (85-98); Nucleated Red Blood Cells % 0 %; Platelet Count 198 10^3/cmm (157-399); Red Blood Count 4.47 10^6/uL (3.85-5.65); White Blood Count 7.93 10^3/uL (3.29-11.43)
[2025-07-09 03:29] LABS: Alanine Aminotransferase 22 U/L (0-33); Albumin Level 3.3 g/dL (3.5-5.2); Alkaline Phosphatase 112 U/L (35-105); Anion Gap 15.9 (5-19); Aspartate Amino Transferase 23 U/L (0-32); Blood Urea Nitrogen 13 mg/dL (6-20); Calcium 8.1 mg/dL (8.5-10.5); Carbon Dioxide 24 mmol/L (22-29); Chloride 101 mmol/L (98-107); Creatinine Clr Calc Pharmacy 137.9695; Globulin 3.6 g/dL (1.3-4.6); Glucose 130 mg/dL (65-115); Magnesium 2.2 mg/dL (1.7-2.3); Osmolality Calculated 286 mOsm/kg (285-295); Potassium 3.9 mmol/L (3.5-5.1); Sodium 137 mmol/L (136-145); Total Protein 6.9 g/dL (6.6-8.7)
--- NOTE | 2025-07-09 06:40 | PHA.VACGOAL ---
Vancomycin Goal - Goal Vancomycin Indication:: SSTI - Therapy Day of therpy:: Day []of [] . Actual body weight (kg): 268 lb 8 oz - Data Labs: WBC 7.93 10^3/uL (3.29-11.43) 07/09/25 02:41 RBC 4.47 10^6/uL (3.85-5.65) 07/09/25 02:41 Hgb 11.00 g/dL (11.27-16.99) L 07/09/25 02:41 Hct 37.2 % (36-47) 07/09/25 02:41 MCV 83.2 fl (85-98) L 07/09/25 02:41 MCH 24.6 pg (27-33) L 07/09/25 02:41 MCHC 29.6 g/dL (30-55) L 07/09/25 02:41 RDW 17.2 % (12.1-15.1) H 07/09/25 02:41 Sodium 137 mmol/L (136-145) 07/09/25 02:41 Potassium 3.9 mmol/L (3.5-5.1) 07/09/25 02:41 Chloride 101 mmol/L (98-107) 07/09/25 02:41 Carbon Dioxide 24 mmol/L (22-29) 07/09/25 02:41 Anion Gap 15.9 (5-19) 07/09/25 02:41 BUN 13 mg/dL (6-20) 07/09/25 02:41 Creatinine 0.6 mg/dL (0.5-0.9) 07/09/25 02:41 GFR Calculation 104.2 mL/min (90-130) 07/09/25 02:41 Treatment plan:: new consult Regimen:: TREATMENT OF CELLULITIS, GOAL TROUGH 10-15 MG/L. LOADING DOSE OF 2000 MG GIVEN IN ER 07/08 AT 1523. STARTED MAINTENANCE DOSE OF 1500 MG Q12H PER PROTOCOL. WILL CONTINUE TO MONITOR DAILY AND OBTAIN TROUGH PRIOR TO 4TH DOSE.
--- NOTE | 2025-07-09 10:39 | PC.NURSE ---
pt remains very sleepy..though is easily aroused..gets up to bsc with assist..eats meals...but falls right back in to a deep sleep.methadone is due.[facility] again phoned to verify dose of methadone...it is 130 mg daily as discussed with them yesterday.dr abel called and discussed pt's sleepiness...and that methadone is due.He ordered to hold for now.We will re-evaluate dose of methadone later this afternoon.(yesterdays dose was given later in day).
[2025-07-09] MEDS: cefTRIAXone 1,000 mg SDV 1000 MG IVP (11:45)
[2025-07-09] MEDS: FUROsemide 10 mg/mL SDV 4mL 40 MG IVP (11:46)
--- NOTE | 2025-07-09 14:10 | P.PN_ITS ---
Subjective 2 Subjective: Patient was seen this morning, currently she is alert to person, to place, to time, she follows all commands, she is quite drowsy easily falls back asleep, she confirms with me again that she has been taking methadone for the last 5 years, she was on 125 mg and then increase it to 130 mg of methadone, I discussed my concerns for her drowsiness, discussed splitting the dose to 40 mg every 8 hours and going down to 120 mg she is in agreement, but remains quite drowsy, she does report shortness of breath, is on 1 L nasal cannula, does have pitting edema discussed IV diuresis and continue IV antibiotics, she is in agreement, denies any headache, blurry vision, no facial droop, slurring of words, focal weakness, she follows all commands, she has good sanitation director strength bilaterally, she is able to move bilateral legs, she is able to ambulate to the bathroom she tells me, no facial droop, slurring words, no chest pain Vitals/I&O/Wt Last Vital Signs Temp 97.6 F 07/09/25 12:00 Pulse 78 07/09/25 12:00 Resp 17 07/09/25 12:00 BP 106/66 07/09/25 12:00 Pulse Ox 95 07/09/25 12:00 O2 Del Method Room Air 07/09/25 12:00 O2 Flow Rate 2 07/09/25 01:18 07/08/25 07/09/25 07/09/25 22:59 06:59 14:59 Intake Total 400 / 1400 300 / 1700 580 / 580 Output Total 2350 / 3200 500 / 3700 700 / 700 Balance -1950 / -1800 -200 / -2000 -120 / -120 Weight last 48 hrs Weight 121.563 kg Weight 121.79 kg Weight 122.425 kg Physical Exam 2 Const: COMMON NORMALS: no acute distress and patient oriented x3 Resp: COMMON NORMALS: normal respiratory effort, No retractions, No use of accessory muscles and clear to auscultation bilaterally AUSCULTATION: clear to auscultation bilaterally Cardio: COMMON NORMALS: regular rate, regular rhythm, S1 normal heart sound present and S2 normal heart sound present RATE: regular rate RHYTHM: r egular rhythm HEART SOUNDS: S1 normal heart sound present and S2 normal heart sound present GI: COMMON NORMALS: Normal to inspection, nondistended, normoactive bowel sounds present and non-tender Extremity: COMMON NORMALS: no pedal edema Neuro: COMMON NORMALS: patient oriented x3 Psych: COMMON NORMALS: mental status grossly normal Data 07/09/25 02:41 07/09/25 02:41 A&P Assessment and plan 1. Opiate overdose: 2. Methamphetamine abuse: 3. Obstructive sleep apnea: 4. Lymphedema associated with obesity: 5. Morbid obesity with BMI of 40.0-44.9, adult: 6. Diabetes: 7. Bilateral lower leg cellulitis: 8. Fluid overload: Plan: Fluid overload, pulmonary edema -Plan - Lasix 40 mg IV once - Monitor urine output, monitor creatinine Bilateral lower extremity cellulitis, edema - IV vancomycin - IV Rocephin Type 2 diabetes mellitus - Lantus 30 units daily - Low-dose insulin sliding scale Opiate overdose, methamphetamine abuse -Admits to fentanyl use, marijuana use, amphetamine use Plan -monitor closely - Acute hepatitis panel, acute hepatitis C positive, awaiting RNA, HIV negative History of methadone use -For history of narcotic abuse -History of being on Suboxone - Patient reports taking 130 mg of methadone daily for the last 5 years - Nursing staff and pharmacy has confirmed with the methadone clinic here [facility] that she receives it from her last dose was on 813, and if confirmed this with patient - Discussed with patient the morbidity mortality of using methadone with fentanyl and amphetamines, she voiced understanding, all questions answered Friend who brought patient in, concerned patient was suicidal - however patient adamantly denies suicide attempt, denies any suicidal ideation - Will consult psychiatry Lymphedema, with obesity Full code Lovenox for DVT prophylaxis PDMP PDMP Reviewed: Last Reviewed 07/08/25 08:29 by Tyler Rosas MD Attestations 2 Medical Necessity Statement*: Patient requires hospitalization for fluid overload, bilateral pulm edema, type 2 diabetes mellitus, opiate overdose, Diagnoses Opiate overdose T40.601A Methamphetamine abuse F15.10 Obstructive sleep apnea G47.33 Lymphedema associated with obesity I89.0; E66.9 Morbid obesity with BMI of 40.0-44.9, adult E66.01; Z68.41 Diabetes E11.9 Bilateral lower leg cellulitis L03.116; L03.115 Fluid overload E87.70
[2025-07-09 14:52] LABS: ABG PCO2 47.1 mmHg (35-45); ABG PH Result 7.43 (7.35-7.45); Arterial Blood Gas Hematocrit 35.9 % (37-47); Blood Gas Allen Test Pos; Blood Gas Operator Identificat glc; Blood Gas Sample Site Radial, left; Blood Gas Sample Type Arterial; HCO3 ABG 31.0 mmol/L (22-26); PO2 ABG 59.3 mmHg (80.0-100.0); PO2 FiO2 Ratio Arterial Blood 282
--- NOTE | 2025-07-09 15:21 | P.NPUPN_ITS ---
Subjective NPU 2 Subjective: Patient presented today reporting that she is fine in general. We continue to discuss a plan for transfer to the neuropsychiatric unit once she is medically stabilized so we can begin to really look at her psychosocial situation and how we can be helpful. She denied any side effects of the medication. Mental Status Exam 2 MSE Comments: This is a morbidly obese white female in hospital gown with poor grooming and limited eye contact. No abnormal movements except for psychomotor retardation. Somewhat cooperative with exam in mild to moderate distress. Speech was increased rate and volume and dysarthric. Mood described as I do not know, affect subdued. Thought process linear. Thought content: Patient denied suicidal or homicidal ideation, there were no delusions reported or noted, she denied auditory or visual hallucinations. Attention and concentration were impaired memory was limited versus impaired but none were formally tested. She is arousable and oriented to person and place. Insight, judgment and impulse control are impaired. Vitals/I&O/Wt Last Vital Signs Temp 97.6 F 07/09/25 12:00 Pulse 78 07/09/25 12:00 Resp 17 07/09/25 12:00 BP 106/66 07/09/25 12:00 Pulse Ox 95 07/09/25 12:00 O2 Del Method Nasal Cannula 07/09/25 12:00 O2 Flow Rate 2 07/09/25 12:00 07/09/25 14:59 Intake Total 580 / 580 Output Total 700 / 700 Balance -120 / -120 Weight last 48 hrs Weight 120.247 kg Weight 121.563 kg Data NPU 07/10/25 05:09 07/10/25 05:09 A&P Assessment and plan 1. Opiate overdose: Patient received Narcan and then became somnolent again. She will be monitored in [facility] on continuous telemetry and oximetry 2. Methamphetamine abuse: Drug screen positive not agitated 3. Obstructive sleep apnea: Patient denied sleep apnea. She stated she is in [place] then went back to sleep. ABG shows pH 7.38 pCO2 49 PO2 67 O2 at 2 L to keep sats greater than 90%. If unstable start CPAP 4. Lymphedema associated with obesity: Dressings on legs are loose and no signs of infection or soiling 5. Morbid obesity with BMI of 40.0-44.9, adult: When awake will start weight loss diet. She also is diabetic so 1500-calorie ADA diet 6. Diabetes: Start sliding scale insulin and will give 30 units daily Lantus starting in the morning. I think the patient has had her home dose this morning 7. Major depressive disorder, recurrent: 8. Methamphetamine use disorder, severe, dependence: 9. Opioid use disorder, severe, on maintenance therapy, dependence: Plan: This is a 54-year-old white female looking older than her stated age with a long history of mental health difficulties and treatment going back to 2005 in our system with significant issues of addiction and mood dysregulation. She presents fairly lethargic and a poor historian with a significant overdose requiring significant interventions and need to figure out how to reintroduce her methadone given that discontinuing it will lead to a withdrawal syndrome that would require inpatient services by itself. Best practice in this situation regardless of her denying lethality would be continued inpatient psychiatric care to try to get to the bottom of her situation. 1. Continue current medication. Will consider divided doses of the methadone and monitoring to her to see if the dose is just too high. 2. Continue every 15 minute checks for safety. 3. Encourage individual, group and milieu therapy once he arrives on the unit. 4. Encourage sober living treatment after discharge to the highest level of care to which she is willing to commit. 5. Informed against the backdrop of the 96-hour hold. 6. Obtain collateral information. 7. Transfer to neuropsychiatric unit once medically stable. PDMP PDMP Reviewed: Not Reviewed Involuntary Hold Information 2 96 Hour Hold: 96 Hour Involuntary Admission: Yes Attestations NPU 2 Medical Necessity Statement*: N/A. Please see primary team note for medical necessity. Coding Level of Care Code Acute Code for Chg Fwd Diagnoses Opiate overdose T40.601A Methamphetamine abuse F15.10 Obstructive sleep apnea G47.33 Lymphedema associated with obesity I89.0; E66.9 Morbid obesity with BMI of 40.0-44.9, adult E66.01; Z68.41 Diabetes E11.9 Major depressive disorder, recurrent F33.9 Methamphetamine use disorder, severe, dependence F15.20 Opioid use disorder, severe, on maintenance therapy, dependence F11.20
[2025-07-10] VITALS (8 sets, daily range): BP systolic 110–123; BP diastolic 64–79; PULSE 66–85; RESP 14–20; TEMP 36.3–37.2; O2SAT 90–97
[2025-07-10 05:29] LABS: Hematocrit 38.4 % (36-47); Hemoglobin 11.00 g/dL (11.27-16.99); Mean Corpuscular HGB Conc 28.6 g/dL (30-55); Mean Corpuscular Hemoglobin 23.3 pg (27-33); Mean Corpuscular Volume 81.4 fl (85-98); Nucleated Red Blood Cells % 0 %; Platelet Count 210 10^3/cmm (157-399); Red Blood Count 4.72 10^6/uL (3.85-5.65); White Blood Count 7.52 10^3/uL (3.29-11.43)
[2025-07-10 06:07] LABS: Alanine Aminotransferase 24 U/L (0-33); Albumin Level 3.5 g/dL (3.5-5.2); Alkaline Phosphatase 109 U/L (35-105); Anion Gap 11.7 (5-19); Aspartate Amino Transferase 21 U/L (0-32); Blood Urea Nitrogen 10 mg/dL (6-20); Calcium 8.4 mg/dL (8.5-10.5); Carbon Dioxide 29 mmol/L (22-29); Chloride 103 mmol/L (98-107); Creatinine Clr Calc Pharmacy 136.9251; Globulin 3.5 g/dL (1.3-4.6); Glucose 174 mg/dL (65-115); Magnesium 2.2 mg/dL (1.7-2.3); Osmolality Calculated 293 mOsm/kg (285-295); Potassium 3.7 mmol/L (3.5-5.1); Sodium 140 mmol/L (136-145); Total Protein 7.0 g/dL (6.6-8.7)
[2025-07-10] MEDS: insulin glargine 100 units/1 mL 30 UNIT SUBCUT (08:37)
--- NOTE | 2025-07-10 09:01 | P.NPUPN_ITS ---
Subjective NPU 2 Subjective: Patient presented today reporting that she is doing all right. She identified that she has done a little better in the last 24 hours but understands the interest that her going over to the neuropsychiatric unit likely tomorrow. She denied any side effects to her medications and is open to the help that the neuropsychiatric unit should provide. Mental Status Exam 2 MSE Comments: This is a morbidly obese white female in hospital gown with poor grooming and limited eye contact. No abnormal movements except for psychomotor retardation. Somewhat cooperative with exam in mild distress. Speech was slightly decreased rate and volume and less dysarthric. Mood described as a little better, affect subdued. Thought process linear. Thought content: Patient denied suicidal or homicidal ideation, there were no delusions reported or noted, she denied auditory or visual hallucinations. Attention and concentration were impaired memory was limited versus impaired but none were formally tested. She is arousable and oriented to person and place. Insight, judgment and impulse control are impaired. Vitals/I&O/Wt Last Vital Signs Temp 98.3 F 07/10/25 08:00 Pulse 66 07/10/25 08:17 Resp 16 07/10/25 08:17 BP 119/78 07/10/25 08:00 Pulse Ox 92 07/10/25 08:17 O2 Del Method Room Air 07/10/25 08:00 O2 Flow Rate 2 07/10/25 08:17 Weight last 48 hrs Weight 117.526 kg Weight 120.247 kg Weight 121.563 kg Data NPU 07/11/25 02:48 07/11/25 02:48 A&P Assessment and plan 1. Opiate overdose: Patient received Narcan and then became somnolent again. She will be monitored in [facility] on continuous telemetry and oximetry 2. Methamphetamine abuse: Drug screen positive not agitated 3. Obstructive sleep apnea: Patient denied sleep apnea. She stated she is in [place] then went back to sleep. ABG shows pH 7.38 pCO2 49 PO2 67 O2 at 2 L to keep sats greater than 90%. If unstable start CPAP 4. Lymphedema associated with obesity: Dressings on legs are loose and no signs of infection or soiling 5. Morbid obesity with BMI of 40.0-44.9, adult: When awake will start weight loss diet. She also is diabetic so 1500-calorie ADA diet 6. Diabetes: Start sliding scale insulin and will give 30 units daily Lantus starting in the morning. I think the patient has had her home dose this morning 7. Major depressive disorder, recurrent: 8. Methamphetamine use disorder, severe, dependence: 9. Opioid use disorder, severe, on maintenance therapy, dependence: Plan: This is a 54-year-old white female looking older than her stated age with a long history of mental health difficulties and treatment going back to 2005 in our system with significant issues of addiction and mood dysregulation. She presents fairly lethargic and a poor historian with a significant overdose requiring significant interventions and need to figure out how to reintroduce her methadone given that discontinuing it will lead to a withdrawal syndrome that would require inpatient services by itself. Best practice in this situation regardless of her denying lethality would be continued inpatient psychiatric care to try to get to the bottom of her situation. 1. Continue current medication. Will consider divided doses of the methadone and monitoring to her to see if the dose is just too high. 2. Continue every 15 minute checks for safety. 3. Encourage individual, group and milieu therapy once he arrives on the unit. 4. Encourage sober living treatment after discharge to the highest level of care to which she is willing to commit. 5. Informed against the backdrop of the 96-hour hold. 6. Obtain collateral information. 7. Transfer to neuropsychiatric unit once medically stable. PDMP PDMP Reviewed: Not Reviewed Involuntary Hold Information 2 96 Hour Hold: 96 Hour Involuntary Admission: Yes Attestations NPU 2 Medical Necessity Statement*: N/A. Please see primary team note for medical necessity. Coding Level of Care Code Acute Code for Chg Fwd Diagnoses Opiate overdose T40.601A Methamphetamine abuse F15.10 Obstructive sleep apnea G47.33 Lymphedema associated with obesity I89.0; E66.9 Morbid obesity with BMI of 40.0-44.9, adult E66.01; Z68.41 Diabetes E11.9 Major depressive disorder, recurrent F33.9 Methamphetamine use disorder, severe, dependence F15.20 Opioid use disorder, severe, on maintenance therapy, dependence F11.20
--- NOTE | 2025-07-10 13:01 | P.PN_ITS ---
Subjective 2 Subjective: - Patient was seen this morning, current ly alert oriented x 3, following all commands, denies any chest pain, palpitations she does report shortness of breath is on 2 L, does report lower extremity edema - She at times remains drowsy, she easil y falls back asleep, she tells me that she is not a morning person - I discussed my concerns for her high d ose of methadone, - Discussed decreasing her methadone dos e yesterday to 120 mg, she is not happy with that, and I split up the dose to 3 times daily 40 mg - She received her methadone this iannin g, nursing staff still reports that she is drowsy does awaken, we will decrease her methadone dose to 35 mg 3 times daily - Discussed with nursing staff?to ambula te her, have her sit in the chair Vitals/I&O/Wt Last Vital Signs Temp 98.0 F 07/10/25 12:00 Pulse 69 07/10/25 12:00 Resp 19 H 07/10/25 12:00 BP 110/70 07/10/25 12:00 Pulse Ox 90 07/10/25 12:00 O2 Del Method Nasal Cannula 07/10/25 08:17 O2 Flow Rate 2 07/10/25 08:17 07/09/25 07/10/25 07/10/25 22:59 06:59 14:59 Intake Total 760 / 1340 300 / 1640 480 / 480 Output Total 800 / 1500 900 / 2400 Balance -40 / -160 -600 / -760 480 / 480 Weight last 48 hrs Weight 120.247 kg Weight 121.563 kg Physical Exam 2 Const: COMMON NORMALS: no acute distress and patient oriented x3 Resp: COMMON NORMALS: normal respiratory effort, No retractions and No use of accessory muscles AUSCULTATION: crackles Cardio: COMMON NORMALS: regular rate, regular rhythm, S1 normal heart sound present and S2 normal heart sound present RATE: regular rate RHYTHM: r egular rhythm HEART SOUNDS: S1 normal heart sound present and S2 normal heart sound present GI: COMMON NORMALS: Normal to inspection, nondistended, normoactive bowel sounds present and non-tender Extremity: NARRATIVE EXTREMITY EXAM: 2+ pitting edema Neuro: COMMON NORMALS: patient oriented x3 Psych: COMMON NORMALS: mental status grossly normal Data 07/10/25 05:09 07/10/25 05:09 A&P Assessment and plan 1. Opiate overdose: 2. Methamphetamine abuse: 3. Obstructive sleep apnea: 4. Lymphedema associated with obesity: 5. Morbid obesity with BMI of 40.0-44.9, adult: 6. Diabetes: 7. Bilateral lower leg cellulitis: 8. Fluid overload: Plan: Fluid overload, pulmonary edema -Plan - Lasix 40 mg IV once, with metolazone, with Lasix - Monitor urine output, monitor creatinine Bilateral lower extremity cellulitis, edema - De-escalate antibiotic therapy to doxycycline Type 2 diabetes mellitus - Lantus 30 units daily - Low-dose insulin sliding scale Opiate overdose, methamphetamine abuse -Admits to fentanyl use, marijuana use, amphetamine use Plan -monitor closely - Acute hepatitis panel, acute hepatitis C positive, awaiting RNA, HIV negative History of methadone use -For history of narcotic abuse -History of being on Suboxone - Patient reports taking 130 mg of methadone daily for the last 5 years -However according to nursing staff discussion with methadone clinic she was on 125 mg sometime ago - Nursing staff and pharmacy has confirmed with the methadone clinic [facility] that she receives it from her last dose was on 813, and if confirmed this with patient - Discussed with patient the morbidity mortality of using methadone with fentanyl and amphetamines, she voiced understanding, all questions answered -Methadone dose is 130 mg we will decrease it by roughly 10% down to 120 mg - Was on methadone 40 mg 3 times daily yesterday however continues to have drowsiness - Will monitor Friend who brought patient in, concerned patient was suicidal - however patient adamantly denies suicide attempt, denies any suicidal ideation - Will consult psychiatry Lymphedema, with obesity Full code Lovenox for DVT prophylaxis Patient requires hospitalization for fluid overload PDMP PDMP Reviewed: Last Reviewed 07/08/25 08:29 by Tyler Rosas MD Attestations 2 Medical Necessity Statement*: Patient requires hospitalization for fluid overload, pulmonary edema Diagnoses Opiate overdose T40.601A Methamphetamine abuse F15.10 Obstructive sleep apnea G47.33 Lymphedema associated with obesity I89.0; E66.9 Morbid obesity with BMI of 40.0-44.9, adult E66.01; Z68.41 Diabetes E11.9 Bilateral lower leg cellulitis L03.116; L03.115 Fluid overload E87.70
[2025-07-10] MEDS: FUROsemide 10 mg/mL SDV 4mL 40 MG IVP (14:12)
[2025-07-11] VITALS (8 sets, daily range): BP systolic 108–134; BP diastolic 76–86; PULSE 70–97; RESP 12–20; TEMP 36.2–37.1; O2SAT 92–96
[2025-07-11 03:31] LABS: Hematocrit 43.4 % (36-47); Hemoglobin 12.70 g/dL (11.27-16.99); Mean Corpuscular HGB Conc 29.3 g/dL (30-55); Mean Corpuscular Hemoglobin 24.0 pg (27-33); Mean Corpuscular Volume 82.0 fl (85-98); Nucleated Red Blood Cells % 0 %; Platelet Count 224 10^3/cmm (157-399); Red Blood Count 5.29 10^6/uL (3.85-5.65); White Blood Count 9.13 10^3/uL (3.29-11.43)
[2025-07-11 04:04] LABS: Alanine Aminotransferase 32 U/L (0-33); Albumin Level 3.5 g/dL (3.5-5.2); Alkaline Phosphatase 118 U/L (35-105); Blood Urea Nitrogen 12 mg/dL (6-20); Calcium 9.6 mg/dL (8.5-10.5); Carbon Dioxide 24 mmol/L (22-29); Chloride 98 mmol/L (98-107); Creatinine Clr Calc Pharmacy 136.9251; Globulin 4.0 g/dL (1.3-4.6); Glucose 157 mg/dL (65-115); Magnesium 2.1 mg/dL (1.7-2.3); Osmolality Calculated 283 mOsm/kg (285-295); Sodium 135 mmol/L (136-145); Total Protein 7.5 g/dL (6.6-8.7)
[2025-07-11 04:22] LABS: Anion Gap 17.1 (5-19); Aspartate Amino Transferase 39 U/L (0-32); Potassium 4.1 mmol/L (3.5-5.1)
[2025-07-11] MEDS: insulin glargine 100 units/1 mL 30 UNIT SUBCUT (08:11)
[2025-07-11] MEDS: FUROsemide 10 mg/mL SDV 4mL 40 MG IVP (08:55)
--- NOTE | 2025-07-11 11:25 | PM.PN ---
Subjective Subjective: Patient was seen this morning, currently alert oriented x 3, following all commands, no chest pain, no palpitations, no shortness of breath, her edema is improving, no shortness of breath Vitals/I&O/Wt Last Vital Signs Temp 97.1 F L 07/11/25 07:29 Pulse 75 07/11/25 07:54 Resp 20 H 07/11/25 08:11 BP 134/79 07/11/25 07:29 Pulse Ox 94 07/11/25 08:11 O2 Del Method Room Air 07/11/25 07:54 O2 Flow Rate 2 07/10/25 08:17 07/10/25 07/11/25 07/11/25 22:59 06:59 14:59 Intake Total 120 / 120 Output Total 2500 / 3050 Balance -2500 / -1850 120 / 120 Weight last 48 hrs Weight 117.526 kg Weight 120.247 kg Physical Exam Const: COMMON NORMALS: no acute distress and patient oriented x3 Resp: COMMON NORMALS: normal respiratory effort, No retractions, No use of accessory muscles and clear to auscultation bilaterally AUSCULTATION: clear to auscultation bilaterally Cardio: COMMON NORMALS: regular rate, regular rhythm, S1 normal heart sound present and S2 normal heart sound present RATE: regular rate RHYTHM: regular rhythm HEART SOUNDS: S1 normal heart sound present and S2 normal heart sound present GI: COMMON NORMALS: Normal to inspection, nondistended, normoactive bowel sounds present and non-tender Neuro: COMMON NORMALS: patient oriented x3 OTHER: Nonpitting edema Psych: COMMON NORMALS: mental status grossly normal Data 07/11/25 02:48 07/11/25 02:48 A&P Assessment and plan 1. Opiate overdose: 2. Methamphetamine abuse: 3. Obstructive sleep apnea: 4. Lymphedema associated with obesity: 5. Morbid obesity with BMI of 40.0-44.9, adult: 6. Diabetes: 7. Bilateral lower leg cellulitis: 8. Fluid overload: Plan: Fluid overload, pulmonary edema -Plan - Lasix 40 mg IV once, with metolazone, transition to p.o. Lasix tomorrow - Monitor urine output, monitor creatinine Bilateral lower extremity cellulitis, edema - De-escalate antibiotic therapy to doxycycline Type 2 diabetes mellitus - Lantus 30 units daily - Low-dose insulin sliding scale Opiate overdose, methamphetamine abuse -Admits to fentanyl use, marijuana use, amphetamine use Plan -monitor closely - Acute hepatitis panel, acute hepatitis C positive, awaiting RNA, HIV negative History of methadone use -For history of narcotic abuse -History of being on Suboxone - Patient reports taking 130 mg of methadone daily for the last 5 years -However according to nursing staff discussion with methadone clinic she was on 125 mg sometime ago - Nursing staff and pharmacy has confirmed with the methadone clinic here [facility] that she receives it from her last dose was on 813, and if confirmed this with patient - Discussed with patient the morbidity mortality of using methadone with fentanyl and amphetamines, she voiced understanding, all questions answered -Methadone dose is 130 mg we will decrease it by roughly 10% down to 120 mg - Was on methadone 40 mg 3 times daily yesterday however continues to have drowsiness -No significant drowsiness today, will continue 40 mg 3 times daily of methadone, will move to neuropsychiatric unit - Will monitor Friend who brought patient in, concerned patient was suicidal - however patient adamantly denies suicide attempt, denies any suicidal ideation - Will consult psychiatry Lymphedema, with obesity Full code Lovenox for DVT prophylaxis Patient requires hospitalization for fluid overload, will discuss with psychiatry about moving to neuropsychiatric unit PDMP PDMP Reviewed: Last Reviewed 07/08/25 08:29 by Tyler Rosas MD Attestations Medical Necessity Statement*: Plan today we will moved to neuropsychiatric unit, bilateral extremity edema, fluid overload Diagnoses Opiate overdose T40.601A Methamphetamine abuse F15.10 Obstructive sleep apnea G47.33 Lymphedema associated with obesity I89.0; E66.9 Morbid obesity with BMI of 40.0-44.9, adult E66.01; Z68.41 Diabetes E11.9 Bilateral lower leg cellulitis L03.116; L03.115 Fluid overload E87.70
--- NOTE | 2025-07-11 13:27 | PC.NURSE ---
report phoned to leo duran in npu.transferred via w/c to npu by security at this time.debit card,small amt of pru[place],chapstick,and 3 rings-all in plastic bag transferred with pt.
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
[2025-07-12] VITALS (7 sets, daily range): BP systolic 106–121; BP diastolic 72–92; PULSE 72–98; RESP 16–20; TEMP 37; O2SAT 92–94
[2025-07-12] MEDS: insulin glargine 100 units/1 mL 30 UNIT SUBCUT (09:19)
--- NOTE | 2025-07-12 09:33 | PC.PT ---
PT order for lymphedema wraps. PT not certified in lymphedema. OT is lymphedema certified. OT reviewed case and discussed order with nursing staff in NPU. PT order canceled.
--- NOTE | 2025-07-12 13:05 | P.NPUPN_ITS ---
Subjective NPU 2 Subjective: Patient presented today reporting that she is doing better. She was up and less isolative and looking less feeble per staff reports and direct observation. She was working with the social work team on making sure her outpatient providers are abreast of her situation and are prepared to assist her in avoiding repeat of these challenges. She denied any side effects to her current medication. Mental Status Exam 2 MSE Comments: This is a morbidly obese white female in hospital scrubs with poor grooming and limited eye contact. No abnormal movements except for psychomotor retardation. Somewhat cooperative with exam in mild distress. Speech was slightly decreased rate and volume and less dysarthric. Mood described as a little better, affect subdued. Thought process linear. Thought content: Patient denied suicidal or homicidal ideation, there were no delusions reported or noted, she denied auditory or visual hallucinations. Attention and concentration were impaired memory was limited versus impaired but none were formally tested. She is arousable and oriented to person and place. Insight, judgment and impulse control are impaired. Vitals/I&O/Wt Last Vital Signs Temp 98.6 F 07/12/25 06:00 Pulse 78 07/12/25 06:00 Resp 17 07/12/25 08:07 BP 106/72 07/12/25 06:00 Pulse Ox 93 07/12/25 06:00 O2 Del Method Room Air 07/12/25 06:00 O2 Flow Rate 2 07/10/25 08:17 07/11/25 07/12/25 07/12/25 22:59 06:59 14:59 Output Total 1200 / 1200 Balance -1200 / -840 Weight last 48 hrs Weight 122.016 kg Weight 2.381 kg Weight 117.526 kg Data NPU 07/11/25 02:48 07/11/25 02:48 A&P Assessment and plan 1. Opiate overdose: 2. Methamphetamine abuse: Drug screen positive not agitated 3. Obstructive sleep apnea: 4. Lymphedema associated with obesity: 5. Morbid obesity with BMI of 40.0-44.9, adult: 6. Diabetes: 7. Major depressive disorder, recurrent: 8. Methamphetamine use disorder, severe, dependence: 9. Opioid use disorder, severe, on maintenance therapy, dependence: Plan: This is a 54-year-old white female looking older than her stated age with a long history of mental health difficulties and treatment going back to 2006 in our system with significant issues of addiction and mood dysregulation. She presents fairly lethargic and a poor historian with a significant overdose requiring significant interventions and need to figure out how to reintroduce her methadone given that discontinuing it will lead to a withdrawal syndrome that would require inpatient services by itself. Best practice in this situation regardless of her denying lethality would be continued inpatient psychiatric care to try to get to the bottom of her situation. Patient now transferred to the neuropsychiatric unit and will work with the social work team to make sure her outpatient addiction team is aware of her situation and she is getting support in her recovery so that it is a safe treatment environment. 1. Continue current medication. Will divided doses of the methadone and monitoring to her to see if the dose is just too high. 2. Continue every 15 minute checks for safety. 3. Encourage individual, group and milieu therapy once he arrives on the unit. 4. Encourage sober living treatment after discharge to the highest level of care to which she is willing to commit. 5. Patient actually not on a 96-hour hold. 6. Obtain collateral information. 7. Transfer to neuropsychiatric unit once medically stable. PDMP PDMP Reviewed: Not Reviewed Involuntary Hold Information 2 96 Hour Hold: 96 Hour Involuntary Admission: Yes Attestations NPU 2 Medical Necessity Statement*: Inpatient hospitalization is medically necessary and the clinically appropriate intervention at this time. Will monitor medications and make changes as indicated. Likely length of stay 1-3 days. Coding Level of Care Code Acute Code for Chg Fwd Diagnoses Opiate overdose T40.601A Methamphetamine abuse F15.10 Obstructive sleep apnea G47.33 Lymphedema associated with obesity I89.0; E66.9 Morbid obesity with BMI of 40.0-44.9, adult E66.01; Z68.41 Diabetes E11.9 Major depressive disorder, recurrent F33.9 Methamphetamine use disorder, severe, dependence F15.20 Opioid use disorder, severe, on maintenance therapy, dependence F11.20
--- NOTE | 2025-07-12 13:47 | PC.RESP ---
Patient reports needing new sleep study, for new orders for home cpap machine.
--- NOTE | 2025-07-12 23:04 | PC.NURSE ---
DREAM PATIENT CALLED STAFF TO HER ROOM AND STATED SHE WAS HAVING VERY VIVID NIGHTMARES. PATIENT DESCRIBED THE DREAMS LIKE HORROR MOVIES. PEOPLE KILLING KIDS AND CURSING PEOPLE. VISTARIL 50MG PO GIVEN WELL THIS NURSES PRAYED WITH THE PATIENT FOR A VERY RESTFUL SLEEP.
[2025-07-13 06:00] VITALS: BP 126/90; PULSE 107; RESP 18; TEMP 37.2; O2SAT 93
--- NOTE | 2025-07-13 06:05 | PC.NURSE ---
REST PATIENT HAS RESTED VERY WELL AFTER SHE WAS GIVEN VISTARIL FOR ANXIETY FROM A [place]IGHTMARE.
[2025-07-13 08:30] LABS: HEP C RNA Viral Load Quant 11000000 IU/mL (NOT DETECTED); HEP C RNA Viral Load Quant 7.04 Log IU/mL (NOT DETECTED)
[2025-07-13 09:13] VITALS: RESP 18
[2025-07-13] MEDS: insulin glargine 100 units/1 mL 30 UNIT SUBCUT (09:15)
[2025-07-13 14:00] VITALS: BP 99/63; PULSE 74; RESP 18; TEMP 37.3; O2SAT 96
[2025-07-13 15:13] VITALS: RESP 18
[2025-07-13 15:19] VITALS: RESP 18
--- NOTE | 2025-07-13 18:37 | P.NPUPN_ITS ---
Subjective NPU 2 Subjective: Patient presented today reporting that things are going okay. She continued to show improvement in her activity level and a decrease in her isolation per staff reports and direct observation. Patient reports feeling much better and feeling optimistic and ready for discharge. We discussed the tentative plan for discharge in the morning. She denied any side effects of the medication. Mental Status Exam 2 MSE Comments: This is a morbidly obese white female in hospital scrubs with poor grooming and limited eye contact. No abnormal movements except for psychomotor retardation. Somewhat cooperative with exam in mild distress. Speech was slightly decreased rate and volume and less dysarthric. Mood described as a little better, affect subdued. Thought process linear. Thought content: Patient denied suicidal or homicidal ideation, there were no delusions reported or noted, she denied auditory or visual hallucinations. Attention and concentration were impaired memory was limited versus impaired but none were formally tested. She is arousable and oriented to person and place. Insight, judgment and impulse control are impaired. Vitals/I&O/Wt Last Vital Signs Temp 97.8 F 07/13/25 19:53 Pulse 100 07/13/25 19:53 Resp 19 H 07/13/25 19:53 BP 120/81 07/13/25 19:53 Pulse Ox 94 07/13/25 19:53 O2 Del Method Room Air 07/13/25 19:53 O2 Flow Rate 2 07/10/25 08:17 Weight last 48 hrs Weight 122.016 kg Data NPU 07/11/25 02:48 07/11/25 02:48 A&P Assessment and plan 1. Opiate overdose: 2. Methamphetamine abuse: Drug screen positive not agitated 3. Obstructive sleep apnea: 4. Lymphedema associated with obesity: 5. Morbid obesity with BMI of 40.0-44.9, adult: 6. Diabetes: 7. Major depressive disorder, recurrent: 8. Methamphetamine use disorder, severe, dependence: 9. Opioid use disorder, severe, on maintenance therapy, dependence: Plan: This is a 54-year-old white female looking older than her stated age with a long history of mental health difficulties and treatment going back to 2005 in our system with significant issues of addiction and mood dysregulation. She presents fairly lethargic and a poor historian with a significant overdose requiring significant interventions and need to figure out how to reintroduce her methadone given that discontinuing it will lead to a withdrawal syndrome that would require inpatient services by itself. Best practice in this situation regardless of her denying lethality would be continued inpatient psychiatric care to try to get to the bottom of her situation. Patient now transferred to the neuropsychiatric unit and will work with the social work team to make sure her outpatient addiction team is aware of her situation and she is getting support in her recovery so that it is a safe treatment environment. 1. Continue current medication. Will divided doses of the methadone and monitoring to her to see if the dose is just too high. 2. Continue every 15 minute checks for safety. 3. Encourage individual, group and milieu therapy once he arrives on the unit. 4. Encourage sober living treatment after discharge to the highest level of care to which she is willing to commit. 5. Patient actually not on a 96-hour hold. 6. Obtain collateral information. 7. Transfer to neuropsychiatric unit once medically stable. PDMP PDMP Reviewed: Not Reviewed Involuntary Hold Information 2 96 Hour Hold: 96 Hour Involuntary Admission: Yes Attestations NPU 2 Medical Necessity Statement*: Inpatient hospitalization is medically necessary and the clinically appropriate intervention at this time. Will monitor medications and make changes as indicated. Likely length of stay 1-2 days. Coding Level of Care Code Acute Code for Chg Fwd Diagnoses Opiate overdose T40.601A Methamphetamine abuse F15.10 Obstructive sleep apnea G47.33 Lymphedema associated with obesity I89.0; E66.9 Morbid obesity with BMI of 40.0-44.9, adult E66.01; Z68.41 Diabetes E11.9 Major depressive disorder, recurrent F33.9 Methamphetamine use disorder, severe, dependence F15.20 Opioid use disorder, severe, on maintenance therapy, dependence F11.20
[2025-07-13 19:53] VITALS: BP 120/81; PULSE 100; RESP 19; TEMP 36.6; O2SAT 94
--- NOTE | 2025-07-14 05:13 | PC.NURSE ---
SLEEP PATIENT HAS SLEPT MUCH BETTER THIS NIGHT. PATIENT REQUESTED VISTARIL 50MG AT BEDTIME LAST EVENING. STATED SHE SLEPT SO WELL THE NIGHT BEFORE AFTER VISTARIL WAS GIVEN, SEE WANTED ANOTHER GOOD NIGHTS REST. PATIENT VOICED NO NIGHT TERRORS THIS NIGHT.
[2025-07-14 05:38] VITALS: BP 128/83; PULSE 100; RESP 16; TEMP 37; O2SAT 98
[2025-07-14] MEDS: insulin glargine 100 units/1 mL 30 UNIT SUBCUT (08:09)
--- NOTE | 2025-07-14 12:24 | DCPLANNER ---
IMM was given to pt and rights explained and copy placed in pts. file.
[2025-07-14 13:40] VITALS: BP 128/83; PULSE 100; RESP 16; TEMP 37; O2SAT 98
[2025-07-14 14:00] VITALS: BP 110/74; PULSE 91; RESP 17; TEMP 36.9; O2SAT 95
== END 2025-07-14 15:14 | disposition home or self-care (01) | DRG 918 ==
LOC: ER 18:45 → CSU 22:47 → ICU 23:32 → CSU 07-11 03:47 → NP 07-11 14:04
PROVIDERS: Family Medicine; Internal Medicine; Admitting Provider Student in an Organized Health Care Education/Training Program; Emergency Provider Emergency Medicine; Visit Provider Student in an Organized Health Care Education/Training Program
DX: T50.7X1A Poisoning by analeptics and opioid receptor antagonists, accidental (unintentional), initial encounter (principal); Z68.42 Body mass index [BMI] 45.0-49.9, adult; L03.115 Cellulitis of right lower limb; L03.116 Cellulitis of left lower limb; F33.9 Major depressive disorder, recurrent, unspecified; F11.20 Opioid dependence, uncomplicated; B17.10 Acute hepatitis C without hepatic coma; F15.10 Other stimulant abuse, uncomplicated; Y99.9 Unspecified external cause status; G47.33 Obstructive sleep apnea (adult) (pediatric); E66.01 Morbid (severe) obesity due to excess calories; E11.9 Type 2 diabetes mellitus without complications; Z79.4 Long term (current) use of insulin; J44.9 Chronic obstructive pulmonary disease, unspecified; E87.70 Fluid overload, unspecified; G89.29 Other chronic pain; M41.9 Scoliosis, unspecified; Z82.49 Family history of ischemic heart disease and other diseases of the circulatory system; Z80.9 Family history of malignant neoplasm, unspecified; Z83.3 Family history of diabetes mellitus; Z81.8 Family history of other mental and behavioral disorders; Z82.3 Family history of stroke; Z88.8 Allergy status to other drugs, medicaments and biological substances; Z90.49 Acquired absence of other specified parts of digestive tract; Z90.710 Acquired absence of both cervix and uterus; Z90.722 Acquired absence of ovaries, bilateral
CPT/HCPCS: 36415; 36416; 36600; 70450; 71045; 80048; 80051; 80053; 80074; 80202; 80306; 80307; 82330; 82550; 82803; 82805; 82962; 83735; 83880; 84100; 84703; 85025; 87522; 87806; 93005; 93970; 94664; 96360; 96361; 96372; 97150; 97165; 99285; G0378; J0696; J1650; J1815; J1938; J3372; J3373; J3480; J7040; J9999

== ENCOUNTER → 2025-07-20 09:50 | Outpatient (BNVA) | payer MEDICARE, MEDICAID, SELFPAY | PROVIDERS: Visit Provider Internal Medicine | DX: E11.59 Type 2 diabetes mellitus with other circulatory complications (principal); I73.9 Peripheral vascular disease, unspecified; E78.2 Mixed hyperlipidemia | CPT/HCPCS: 99214 ==

== ENCOUNTER → 2025-07-21 11:01 | Outpatient (BNVA) | payer MEDICARE, MEDICAID, SELFPAY | PROVIDERS: Visit Provider Thoracic Surgery (Cardiothoracic Vascular Surgery) | DX: I96 Gangrene, not elsewhere classified (principal); I87.2 Venous insufficiency (chronic) (peripheral); L97.811 Non-pressure chronic ulcer of other part of right lower leg limited to breakdown of skin; L97.821 Non-pressure chronic ulcer of other part of left lower leg limited to breakdown of skin | CPT/HCPCS: 97597; A6253 ==

== ENCOUNTER → 2025-07-23 11:16 | Outpatient (BNVA) | payer MEDICARE, MEDICAID, SELFPAY | PROVIDERS: Visit Provider Thoracic Surgery (Cardiothoracic Vascular Surgery) | DX: I89.0 Lymphedema, not elsewhere classified (principal); L97.821 Non-pressure chronic ulcer of other part of left lower leg limited to breakdown of skin; L97.811 Non-pressure chronic ulcer of other part of right lower leg limited to breakdown of skin | CPT/HCPCS: 29581; A6253 ==

== ENCOUNTER → 2025-07-28 14:20 | Outpatient (BNVA) | payer MEDICARE, MEDICAID, SELFPAY | PROVIDERS: Visit Provider Thoracic Surgery (Cardiothoracic Vascular Surgery) | DX: I96 Gangrene, not elsewhere classified (principal); I87.2 Venous insufficiency (chronic) (peripheral); L97.811 Non-pressure chronic ulcer of other part of right lower leg limited to breakdown of skin; L97.821 Non-pressure chronic ulcer of other part of left lower leg limited to breakdown of skin ==

== ENCOUNTER → 2025-08-05 12:39 | Outpatient (BNVA) | payer MEDICARE, SELFPAY | PROVIDERS: Visit Provider Nurse Practitioner Family | DX: F45.8 Other somatoform disorders (principal); D22.4 Melanocytic nevi of scalp and neck | CPT/HCPCS: 11102; 99204 ==

== ENCOUNTER → 2025-08-10 10:37 | Outpatient (BNVA) | payer MEDICARE, SELFPAY | PROVIDERS: Visit Provider Thoracic Surgery (Cardiothoracic Vascular Surgery) | DX: I96 Gangrene, not elsewhere classified (principal); I87.2 Venous insufficiency (chronic) (peripheral); L97.811 Non-pressure chronic ulcer of other part of right lower leg limited to breakdown of skin; L97.821 Non-pressure chronic ulcer of other part of left lower leg limited to breakdown of skin | CPT/HCPCS: 97597; A6252 ==

== ENCOUNTER → 2025-08-13 08:31 | Outpatient (BNVA) | payer MEDICARE, SELFPAY | PROVIDERS: Visit Provider Thoracic Surgery (Cardiothoracic Vascular Surgery) | DX: I89.0 Lymphedema, not elsewhere classified (principal); L97.821 Non-pressure chronic ulcer of other part of left lower leg limited to breakdown of skin; L97.811 Non-pressure chronic ulcer of other part of right lower leg limited to breakdown of skin | CPT/HCPCS: 29581; A6252 ==

== ENCOUNTER 2025-08-17 08:44 | Outpatient (CLI) | payer MEDICARE, SELFPAY ==
[2025-08-17 10:34] LABS: Hematocrit 37.1 % (36-47); Hemoglobin 11.30 g/dL (11.27-16.99); Mean Corpuscular HGB Conc 30.5 g/dL (30-55); Mean Corpuscular Hemoglobin 24.0 pg (27-33); Mean Corpuscular Volume 78.8 fl (85-98); Nucleated Red Blood Cells % 0 %; Platelet Count 215 10^3/cmm (157-399); Red Blood Count 4.71 10^6/uL (3.85-5.65); White Blood Count 8.64 10^3/uL (3.29-11.43)
[2025-08-17 10:50] LABS: Estmated Average Glucose 272; Hemoglobin A1C 11.1 % (4.0-6.0)
[2025-08-17 10:57] LABS: Alanine Aminotransferase 31 U/L (0-33); Albumin Level 3.6 g/dL (3.5-5.2); Alkaline Phosphatase 123 U/L (35-105); Anion Gap 12.1 (5-19); Aspartate Amino Transferase 20 U/L (0-32); Blood Urea Nitrogen 10 mg/dL (6-20); Calcium 9.0 mg/dL (8.5-10.5); Carbon Dioxide 30 mmol/L (22-29); Chloride 98 mmol/L (98-107); Globulin 3.6 g/dL (1.3-4.6); Glucose 289 mg/dL (65-115); Osmolality Calculated 292 mOsm/kg (285-295); Potassium 4.1 mmol/L (3.5-5.1); Sodium 136 mmol/L (136-145); Total Protein 7.2 g/dL (6.6-8.7)
[2025-08-17 11:51] LABS: Creatinine Urine, Random 66 mg/dL (28-217); Microalbum Creatinine Ratio Ur 15 mg/dL (0-20)
[2025-08-17 13:18] LABS: Free T4 Free Thyroxine 0.96 ng/dL (0.82-1.77); Thyroid Stimulating Hormone 1.94 uIU/mL (0.27-4.20)
[2025-08-17 13:30] LABS: Vitamin B12 521 pg/mL (232-1245)
[2025-08-17 15:51] LABS: Ferritin 39 ng/mL (15-150); Iron 35 ug/dL (37-145); Total Iron Binding Capacity 331 mcg/dl; Unsaturated Iron Binding 296 ug/dL (112-347)
[2025-08-17 18:48] LABS: Cholesterol 161 mg/dL (0-200); HDL Cholesterol 41 mg/dL (60-100); Triglycerides 134 mg/dL (0-150)
[2025-08-18 17:05] LABS: RPR w(Moniotor) w/REFL Titer NON-REACTIVE (NON-REACTIVE)
== END 2025-08-17 08:45 | disposition home or self-care (01) ==
PROVIDERS: Absent Provider Family Medicine; PCP Internal Medicine; Visit Provider Nurse Practitioner Family
DX: E11.59 Type 2 diabetes mellitus with other circulatory complications (principal); I50.22 Chronic systolic (congestive) heart failure; F45.8 Other somatoform disorders
CPT/HCPCS: 36415; 80053; 80061; 82044; 82607; 82728; 82746; 83036; 83540; 83550; 84439; 84443; 85025; 86592; 97597; A6251

== ENCOUNTER → 2025-08-24 10:29 | Outpatient (BNVA) | payer MEDICARE, SELFPAY | PROVIDERS: PCP Internal Medicine; Visit Provider Thoracic Surgery (Cardiothoracic Vascular Surgery) | DX: I87.2 Venous insufficiency (chronic) (peripheral) (principal); E11.52 Type 2 diabetes mellitus with diabetic peripheral angiopathy with gangrene; E11.622 Type 2 diabetes mellitus with other skin ulcer; L97.821 Non-pressure chronic ulcer of other part of left lower leg limited to breakdown of skin; L97.811 Non-pressure chronic ulcer of other part of right lower leg limited to breakdown of skin; Z09 Encounter for follow-up examination after completed treatment for conditions other than malignant neoplasm | CPT/HCPCS: 97597; A6253 ==

== ENCOUNTER → 2025-08-27 10:38 | Outpatient (BNVA) | payer MEDICARE, SELFPAY | PROVIDERS: PCP Internal Medicine; Visit Provider Thoracic Surgery (Cardiothoracic Vascular Surgery) | DX: I89.0 Lymphedema, not elsewhere classified (principal); L97.821 Non-pressure chronic ulcer of other part of left lower leg limited to breakdown of skin; L97.811 Non-pressure chronic ulcer of other part of right lower leg limited to breakdown of skin | CPT/HCPCS: 29581 ==

== ENCOUNTER → 2025-09-02 14:46 | Outpatient (BNVA) | payer MEDICARE, SELFPAY | PROVIDERS: PCP Internal Medicine; Visit Provider Thoracic Surgery (Cardiothoracic Vascular Surgery) | DX: I96 Gangrene, not elsewhere classified (principal); I87.2 Venous insufficiency (chronic) (peripheral); L97.821 Non-pressure chronic ulcer of other part of left lower leg limited to breakdown of skin; L97.811 Non-pressure chronic ulcer of other part of right lower leg limited to breakdown of skin | CPT/HCPCS: 97597; A6253 ==

== ENCOUNTER → 2025-09-07 11:30 | Outpatient (BNVA) | payer MEDICARE, SELFPAY | PROVIDERS: PCP Internal Medicine; Visit Provider Thoracic Surgery (Cardiothoracic Vascular Surgery) | DX: E11.52 Type 2 diabetes mellitus with diabetic peripheral angiopathy with gangrene (principal); E11.622 Type 2 diabetes mellitus with other skin ulcer; L97.811 Non-pressure chronic ulcer of other part of right lower leg limited to breakdown of skin; I87.2 Venous insufficiency (chronic) (peripheral); L97.821 Non-pressure chronic ulcer of other part of left lower leg limited to breakdown of skin | CPT/HCPCS: 97597 ==

== ENCOUNTER → 2025-09-21 11:39 | Outpatient (BNVA) | payer MEDICARE, SELFPAY | PROVIDERS: PCP Internal Medicine; Visit Provider Thoracic Surgery (Cardiothoracic Vascular Surgery) | DX: I96 Gangrene, not elsewhere classified (principal); I87.2 Venous insufficiency (chronic) (peripheral); L97.821 Non-pressure chronic ulcer of other part of left lower leg limited to breakdown of skin; L97.811 Non-pressure chronic ulcer of other part of right lower leg limited to breakdown of skin; L98.491 Non-pressure chronic ulcer of skin of other sites limited to breakdown of skin | CPT/HCPCS: 97597 ==

== ENCOUNTER → 2025-10-26 10:08 | Outpatient (BNVA) | payer MEDICARE, SELFPAY | PROVIDERS: PCP Internal Medicine; Visit Provider Thoracic Surgery (Cardiothoracic Vascular Surgery) | DX: I96 Gangrene, not elsewhere classified (principal); I87.2 Venous insufficiency (chronic) (peripheral); L97.821 Non-pressure chronic ulcer of other part of left lower leg limited to breakdown of skin; L97.811 Non-pressure chronic ulcer of other part of right lower leg limited to breakdown of skin; Z09 Encounter for follow-up examination after completed treatment for conditions other than malignant neoplasm | CPT/HCPCS: 99212; J9999 ==

== ENCOUNTER 2025-11-09 20:03 | Outpatient (CLI) | payer MEDICARE, MEDICAID, SELFPAY | END 2025-11-09 20:04 | disposition home or self-care (01) | LOC: SLEEP 20:04 | PROVIDERS: PCP Internal Medicine; Referring Provider Internal Medicine; Visit Provider Internal Medicine Pulmonary Disease | DX: G47.33 Obstructive sleep apnea (adult) (pediatric) (principal); G47.36 Sleep related hypoventilation in conditions classified elsewhere; I96 Gangrene, not elsewhere classified; I87.2 Venous insufficiency (chronic) (peripheral); L97.822 Non-pressure chronic ulcer of other part of left lower leg with fat layer exposed; L97.811 Non-pressure chronic ulcer of other part of right lower leg limited to breakdown of skin | CPT/HCPCS: 11042; 95810; 97597 ==